=== PATIENT | female | born 1975 | race Caucasian/White ===

== ENCOUNTER 2021-01-11 23:51 | Inpatient (IN) | payer OTHER, SELFPAY ==
--- NOTE | 2021-01-11 | ECG_ITS ---
Test Reason : chest pain Blood Pressure : / mmHG Vent. Rate : 106 BPM Atrial Rate : 106 BPM P-R Int : 152 ms QRS Dur : 076 ms QT Int : 360 ms P-R-T Axes : 047 -04 139 degrees QTc Int : 478 ms Sinus tachycardia Left ventricular hypertrophy with repolarization abnormality Abnormal ECG When compared with ECG of 20-FEB-2020 04:47, No significant change was found Referred By: Jesika Boss Electronically Signed By:GODWIN MARTINEZ MD
--- NOTE | ~2021-01-11 | CT_ITS ---
EXAMINATION: CT CHEST WITHOUT CONTRAST CLINICAL INFORMATION: Evaluate for pneumonia COMPARISON: Chest x-ray from earlier today, CT 06/19/2015 TECHNIQUE: Multidetector volumetric CT imaging of the chest was done. Axial MIP volume rendering provided. Sagittal and coronal reformatted images were obtained. This CT examination was performed using dose optimization techniques as appropriate, variously including the following: *Automated exposure control *Adjustment of mA and/or kV according to patient size (this includes techniques or standardized protocols for targeted exams where dose is matched to indication/reason for exam; i.e. extremities or head) *Use of iterative reconstruction technique DLP: 214 mGy-cm FINDINGS: LUNGS: The lungs are hypoinflated. There are symmetric multifocal regions of groundglass opacity with involvement of both lung apices and lung bases, in association with subpleural reticulation. This finding was present to some degree on prior CT of 06/19/2015, though overall appears worsened since that time. MEDIASTINUM: There are subcentimeter mediastinal lymph nodes within the range of normal variation. Cardiac size is within normal limits; no pericardial effusion. PLEURA: There is no pleural effusion. No pleural mass or thickening. AXILLA: No lymphadenopathy. UPPER ABDOMEN: Unremarkable. OSSEOUS STRUCTURES: Unremarkable. CT/CT chest wo con IMPRESSION: Low lung volumes. Symmetric abnormalities including multifocal groundglass opacities and subpleural reticulation. Similar findings were present on prior CT of 06/19/2015, though the overall appearance has worsened since that time, and this may represent nonspecific interstitial pneumonia. No definite superimposed acute consolidation.
--- NOTE | ~2021-01-11 | XR_ITS ---
EXAMINATION: XR CHEST CLINICAL INFORMATION: Chest pain COMPARISON: 02/17/2020 TECHNIQUE: Frontal view of the chest was obtained. FINDINGS: Lungs remain hypoinflated. Mild bibasilar opacities suggest atelectasis in this setting. No appreciable pneumothorax or significant pleural effusion. The cardiomediastinal contour is unremarkable. No acute osseous findings are seen. XR/XR chest 1V IMPRESSION: Low lung volumes with mild bibasilar opacities suggesting atelectasis in this setting.
[2021-01-12] VITALS (15 sets, daily range): BP systolic 112–156; BP diastolic 64–94; PULSE 90–134; RESP 12–29; TEMP 36.2–37.1; O2SAT 92–100; BMI 23.6
--- NOTE | 2021-01-12 01:09 | ED.CHESTPAIN ---
HPI - Chest Pain General Chief Complaint: Chest Pain Stated Complaint: Chest Pain Time Seen by Provider: 01/12/21 00:03 Source: patient and family (Spouse) Mode of arrival: ambulatory Limitations: no limitations History of Present Illness HPI narrative: 45-year-old female came in for evaluation of chest pain. This is a 45-year-old female history of end-stage interstitial lung fibrosis, patient is on palliative therapy, patient uses hydromorphone for pain control at home and Zofran. Patient is expressing interest to go on hospice service. Patient has been having chest pain all day today, which is constant, patient took many pills of hydromorphone at home which caused stomach upset and nausea with vomiting, patient could not tolerate p.o. intake or her regular palliative treatment. Patient is complaining of diffuse chest pain. Patient use 6 L of supplemental oxygen at home 19/03. Patient also had multiple mini seizures witnessed by her , but no trauma, no postictal peroid, no head injury. Related Data Allergies Allergy/AdvReac Type Severity Reaction Status Date / Time Penicillins [PCN] Allergy Severe HIVES, Verified 01/12/21 00:15 ANGIOEDEMA fentanyl [FENTANYL] Allergy Intermediate UNKNOWN Verified 01/12/21 00:15 garlic [GARLIC] Allergy Unknown ANAPHYLAXIS Verified 01/12/21 00:15 mustard [MUSTARDS] Allergy Unknown ANAPHYLAXIS Verified 01/12/21 00:15 naproxen [NAPROXEN] Allergy Unknown UNKNOWN Verified 01/12/21 00:15 paroxetine [Paxil] Allergy Unknown Unknown Verified 01/12/21 00:15 penicillin V Allergy Unknown Unknown Verified 01/12/21 00:15 aspirin [ASA] AdvReac Intermediate HIVES, LIP Verified 01/12/21 00:15 SWELLING SUN Allergy Severe BLISTERS, Uncoded 01/12/21 00:15 ABD PAIN, DUE TO PORPHYRIA Review of Systems Review of Systems: All other systems are reviewed and are negative Constitutional: Reports as per HPI and Reports no additional constitutional complaints Eyes: Reports as per HPI and Reports no additional eye complaints Reports system reviewed and no additional complaints, except as documented Cardiovascular: Reports as per HPI and Reports no additional cardiovascular complaints Respiratory: Reports as per HPI and Reports no additional respiratory complaints Gastrointestinal: Reports as per HPI and Reports no additional gastrointestinal complaints Genitourinary: Reports no additional female genitourinary complaints Musculoskeletal: Reports no additional musculoskeletal complaints Skin/Breast: Reports system reviewed and no additional complaints, except as docu Psychiatric: Reports no additional psychiatric complaints Endocrine: Reports no additional endocrine complaints Hematologic/Lymphatic: Reports no additional hematologic/lymphatic complaints Allergic/Immunologic: Reports no additional allergic/immunologic complaints Reports system reviewed and no additional complaints, except as documented and Reports Abnormal speech present [facility] Social History Social History Advance Directives: No Advance Directives Information Provided: No Physical Exam Vital Signs: Vital Signs: Last Vital Signs Temp 98.7 F 01/12/21 00:15 Pulse 100 01/12/21 00:15 Resp 22 H 01/12/21 00:15 BP 141/88 H 01/12/21 00:15 Pulse Ox 100 01/12/21 00:15 Oxygen Flow Rate 6 01/12/21 00:15 Body Mass Index 23.6 Vital signs have been reviewed as appeared to be correct. Blood pressure normal. Heart rate normal. Respiration rate normal. Temperature normal. Oxygen saturation normal. Appearance: Alert. Oriented X3. Mild acute distress. Anxious Head: Normal external exam. Normocephalic. Atraumatic. No Aguilar signs noted. No raccoon eyes noted Eyes: PERRLA. EOMI. Conjunctiva and sclera normal. Eyelids normal. ENT: TM's Normal. Pharynx normal. Uvula midline. Moist mucous membranes. No trismus noted. No drooling noted. No muffled voice noted. Neck: Normal inspection. Neck supple. FROM. No adenopathy. Thyroid Normal. No meningeal signs. No neck mass noted. CVS: Normal heart rate and rhythm. Heart sound normal. No murmurs noted. Pulses normal throughout. Respiratory: No respiratory distress. Painless inspiration. Breath sounds normal. No wheezes/rales/rhonchi noted. Chest nontender. No accessory muscle usage noted or decreased air movement noted. Abdomen: Soft and nontender. Bowel sounds normal in all 4 quadrants. No distention noted. No organomegaly noted. No visible injury noted. Back: No CVA tenderness. Full range of motion noted. Skin: Skin warm and dry. Normal skin color. Normal skin turgor. No rashes/lesions/lacerations noted. Extremities: No lower extremity edema. Extremities exhibit normal range of motion. Extremities nontender. Neuro: Oriented X 3. No motor deficit. No sensory deficit. Reflexes normal. Course Course Course Narrative: Assessment and plan. 45-year-old female with chronic pain secondary to end-stage interstitial lung disease, patient is using hydro morphine p.o. at home could not take it because the nausea and vomiting came in with exacerbation of her chronic pain. Signed out to Dr. Boss for check labs, control patient's symptoms, dispo accordingly. MDM - Chest Pain ECG Data ECG #1: Interpretation: Sinus tachycardia at 01:00 6 beats per minutes, LVH, no ST-T changes, no change from previous EKG.
[2021-01-12 01:19] LABS: MANUAL DIFF FLAG NO
[2021-01-12 01:20] LABS: Basophils Percent Auto 0.2 % (0-2); Eosinophils Percent Auto 0.3 % (0-4); Hematocrit 38.4 % (37-47); Hemoglobin 11.6 g/dl (12.0-16.0); Imm Gran Abs Auto 0.19 X10*3/uL (0.00-0.03); Imm Gran Pct Auto 1.4 % (0.0-0.4); Lymphocytes Absolute Auto 2.3 X10*3/uL (1.2-4.9); Lymphocytes Percent Auto 16.9 % (20-40); Mean Corpuscular HGB Conc 30.2 g/dl (31.0-35.0); Mean Corpuscular Volume 82.8 fL (80-98); Mean Platelet Volume 8.2 fL (9.4-12.3); Monocytes Absolute Auto 0.9 X10*3/uL (0.1-1.2); Monocytes Percent Auto 6.3 % (2-11); Neutrophils Absolute Auto 10.3 X10*3/uL (2.0-8.3); Neutrophils Percent Auto 74.9 % (45-73); Platelet Count 464 X10*3/uL (160-400); Red Blood Count 4.64 X10*6/uL (4.20-5.50); Red Cell Distribution Width 15.6 % (11.0-16.0); White Blood Count 13.8 X10*3/uL (4.8-10.8)
[2021-01-12] MEDS: HYDROmorphone HCl 2 MG/ML VIAL IVPUSH ×7 (01:25→14:37)
[2021-01-12] MEDS: ondansetron HCL 4 MG/2 ML VIAL IVPUSH ×2 (01:26→16:38)
[2021-01-12 01:36] LABS: D Dimer 220 NG/ML
[2021-01-12 01:46] LABS: B Type Natriuretic Peptide 25 pg/mL (<100); Troponin-I High Sensitivity < 3.5 ng/L (<3.5-17.0)
[2021-01-12] MEDS: HYDROmorphone HCl 1 MG/ML SYRINGE IVPUSH (02:52)
[2021-01-12] MEDS: LORazepam 2 MG/ML VIAL 1 MG IVPUSH ×6 (03:22→23:19)
--- NOTE | 2021-01-12 03:30 | PC.NURSE ---
Patient's came to report that patient had a seizure. When this com writer came in patient was slouch on the bed. This com writer repositioned the patient and she woke up. Patient was oriented and responding appropriately. Patient did not present as post ictal. ED provider aware and patient was assessed. CAT scan w/o contrast ordered.
--- NOTE | 2021-01-12 03:55 | PC.NURSE ---
Patient complaining of pain and asking for more pain medication and stating that the medication we have given doesn't work for long. Dr. Boss made aware and myself and Dr. Boss spoke with patient about our concern that if we continue to give her narcotics to treat her pain that their is a risk we could compromise her ability to breathe and she could stop breathing. Dr. Boss question patient about whether she would want to be placed on a ventilator if she stopped breathing. The patient clearly stated that she would not want to be intubated. Patient has end stage lung disease and stated she wanted to have her pain controlled. She was aware of possible complcation of breathing complications and again stated that she would not want to be intubated.
[2021-01-12] MEDS: methylPREDNISolone Sod Succ 125 MG/2 ML VIAL 60 MG IVPUSH (05:05)
--- NOTE | 2021-01-12 05:07 | PC.NURSE ---
Patient medicated per emar as noted.
[2021-01-12 05:21] LABS: Anion Gap 17 (12-20); Blood Urea Nitrogen 11 mg/dL (9-16); Calcium 9.5 mg/dL (8.4-10.2); Carbon Dioxide 22 mmol/L (22-29); Chloride 105 mmol/L (96-108); Creatinine Clr Calc Pharmacy 87.6; Estimated Glomerular Filt Rate > 60; Glucose Random 112 mg/dL (60-115); Lipase 54 U/L (8-78); Potassium 4.4 mmol/L (3.3-5.1); Sodium 140 mmol/L (135-145)
[2021-01-12 07:58] LABS: COVID-19 Test Negative (Negative)
--- NOTE | 2021-01-12 08:20 | PC.NURSE ---
PT CURRENTLY BEING SEEN BY HOSPITALIST
--- NOTE | 2021-01-12 09:45 | P.EN_ITS ---
Event Note Date of Service: 01/12/21 Event Note: Pt seen and examined this AM around 8-830. Admission requested for intractable pain. Patient currently under Palliative care and feels that she is ready to transition to hospice. She tells me her Painter [employer] [place] gave her a life expectancy of 7-12 months (this conversation was held at some point towards the end of 2019). She tells me that she is ready to make this transition. She reports that her oral pain medications are no longer working. She has been given multiple doses of IV dilaudid with some improvement in pain, but not enough for her to be discharged from the ED. I believe she would be a hospice candidate based off her reports with her medical office professional instructor. Furthermore, she would be a candidate for GIP hospice should she qualify for hospice in the first place. ED CM has been made aware. Will admit the patient under appropriate status once evaluated by hospice.
--- NOTE | 2021-01-12 09:47 | MHC.CM.ED ---
Per Dr Richards, patient is currently active with Palliative care and interested in hospice. Patient is being admitted due to poor pain control. Patient is active with [facility]iative care for consult only. Referral made to [facility]. karie Beal will be here to meet with patient in about an hour. Dr Richards aware. Continue to monitor for d/c needs.
--- NOTE | 2021-01-12 10:50 | PC.NURSE ---
SPOKE WITH PATIENTS UPDATED ON PLAN, CM WORKING ON GETTING HOSPICE INVOLVED. GAVE ME NUMBERS FOR [facility] [phone], PALEONTOLOGIST DR MURO [phone] JAMARCUS STILL [phone]
--- NOTE | 2021-01-12 11:20 | PC.NURSE ---
PT EVALUATED BY MARKEL FROM HOSPICE, WILL WORK ON A PLAN FOR BETTER PAIN CONTROL
[2021-01-12] MEDS: FLUoxetine HCl 20 MG CAPSULE 60 MG PO (12:11)
--- NOTE | 2021-01-12 12:27 | MHC.CM.ED ---
Lian, liaison for [facility] in to see patient. Patient is hospice GIP appropriate. Mary Beth from Hospice here to sign patient onto GIP. Dr Richards aware. Continue to monitor for d/c needs.
--- NOTE | 2021-01-12 13:38 | PM.IMHP ---
History of Present Illness Date of Service: 01/12/21 Chief Complaint: pain This is an unfortunate 45-year-old female with a past medical history of chronic respiratory failure with hypoxia on 6 L by nasal cannula, interstitial lung disease/pulmonary fibrosis, PTSD/anxiety who presents to the hospital with complaints of severe chest pain. Patient reports that she is in daily pain and that her chronic pain medications are no longer working and so she sought treatment in the emergency room. While in the ED, she underwent basic workup which included a CT scan of the chest which showed progression of her known pulmonary fibrosis. There was no evidence of superimposed infiltrate. She was given multiple doses of IV Dilaudid without much resolution of her pain and so admission was requested for intractable pain. When I saw the patient this morning she told me that she was currently being treated under palliative care and that she had had prior discussions in the outpatient setting for hospice transition and now she feels that she is ready for this. When I inquired about her interstitial lung disease and her prognosis, she told me that her pole tester had told her that she had 7-12 months of life expectancy left. She reported that this conversation happened with her pole tester towards the end of 2019. I offered her evaluation with hospice services which she gladly agreed to. Hospice services evaluated the patient and deemed her a candidate for hospice. Due to her uncontrolled pain despite multiple doses of IV narcotics, she was deemed a candidate for GIP hospice and will be admitted for pain management. She has received multiple doses of 2mg of IV Dilaudid initially q.4 hours and subsequently q.2 hours without any significant relief. Review of Systems Review of Systems: General - +parrish and anxiety Cardiovascular - diffuse pain Respiratory - no shortness of breath or cough Abdominal- +nausea Psych - Anxiety PMFSH Social History Alcohol intake: unknown Smoking Status: Unknown if ever smoked Advance Directives Date on File: 01/12/21 Meds Allergies Allergy/AdvReac Type Severity Reaction Status Date / Time Penicillins [PCN] Allergy Severe HIVES, Verified 01/12/21 00:15 ANGIOEDEMA fentanyl [FENTANYL] Allergy Intermediate UNKNOWN Verified 01/12/21 00:15 garlic [GARLIC] Allergy Unknown ANAPHYLAXIS Verified 01/12/21 00:15 mustard [MUSTARDS] Allergy Unknown ANAPHYLAXIS Verified 01/12/21 00:15 naproxen [NAPROXEN] Allergy Unknown UNKNOWN Verified 01/12/21 00:15 paroxetine [Paxil] Allergy Unknown Unknown Verified 01/12/21 00:15 penicillin V Allergy Unknown Unknown Verified 01/12/21 00:15 aspirin [ASA] AdvReac Intermediate HIVES, LIP Verified 01/12/21 00:15 SWELLING SUN Allergy Severe BLISTERS, Uncoded 01/12/21 00:15 ABD PAIN, DUE TO PORPHYRIA Active Medications: Current Medications Generic Name Dose Route Start Last Admin Trade Name Freq PRN Reason Stop Dose Admin Cyclobenzaprine HCl 10 mg 01/12/21 15:00 Cyclobenzaprine Hcl 10 Mg Tablet PO TID [facility] Fluoxetine HCl 60 mg 01/12/21 11:00 01/12/21 12:11 Fluoxetine Hcl 20 Mg Capsule PO 60 mg DAILY [facility] Administration Hydromorphone HCl 2 mg 01/12/21 10:49 01/12/21 12:11 Hydromorphone Hcl 2 Mg/Ml Vial IVPUSH 2 mg Q2H PRN Administration Pain, Severe (Pain Scale 7-10) Hydroxyzine HCl 25 mg 01/12/21 10:52 Hydroxyzine Hcl 25 Mg Tablet PO BEDTIME PRN anxiety Olanzapine 2.5 mg 01/13/21 09:00 Olanzapine 2.5 Mg Tablet PO DAILY [facility] Omeprazole 20 mg 01/13/21 06:30 Omeprazole 20 Mg Capsule. PO DAILY@0630 [facility] Pharmacy Consult 1 each 01/12/21 04:49 Consult Rx Perform Med Rec MISCELLANE ONCE PRN Consult order Prednisone 20 mg 01/13/21 09:00 Prednisone 20 Mg Tablet PO DAILY [facility] Trazodone HCl 50 mg 01/12/21 21:00 Trazodone Hcl 50 Mg Tablet PO BEDTIME [facility] Trimethoprim/Sulfamethoxazole 1 tab 01/12/21 12:00 Sulfamethox/Trimeth 800/160 1 Tab Tablet PO MoWeFr@0900 [facility] Home Medications Medication Instructions Recorded Confirmed Last Taken Type clonazepam 1 tab PO TID 01/12/21 01/12/21 Unknown History cyclobenzaprine 1 tab PO TID 01/12/21 01/12/21 Unknown History fluoxetine 3 cap PO QAM 01/12/21 01/12/21 Unknown History hydroxyzine HCl 1 tab PO BEDTIME PRN 01/12/21 01/12/21 Unknown History metoprolol succinate 1 tab PO DAILY 01/12/21 01/12/21 Unknown History olanzapine 2.5 mg PO DAILY 01/12/21 01/12/21 Unknown History pantoprazole 40 mg PO DAILY 01/12/21 01/12/21 Unknown History prednisone 1 tab PO DAILY 01/12/21 01/12/21 Unknown History sulfamethoxazole-trimethoprim 1 tab PO MOWEFR 01/12/21 01/12/21 Unknown History trazodone 1 tab PO BEDTIME 01/12/21 01/12/21 Unknown History Physical Exam Vital Signs and Narrative: Vital Signs: Last Vital Signs Temp 98.7 F 01/12/21 00:15 Pulse 118 H 01/12/21 10:00 Resp 18 01/12/21 10:00 BP 143/76 H 01/12/21 10:00 Pulse Ox 100 01/12/21 10:00 Oxygen Flow Rate 6 01/12/21 00:15 Body Mass Index 23.6 Const: Other: Constitutional - Awake and Alert, in visible distress Eyes - PERRLA, EOMI Cardiovascular - S1S2, Tachycaridc Respiratory - tachypnea, fine rales throughout Gastrointestinal - NT / ND; +BS; No rebound or guarding - No CVA tenderness Extremities - no calf tenderness bilaterally, no swelling Musculoskeletal - Normal inspection, normal ROM Skin - Warm/Dry Neurological - Alert & oriented x3, No focal deficit Psychological - Appropriate affect Results Labs CBC and Chem 7: 01/12/21 01:15 01/12/21 04:38 Labs: Laboratory Results - last 24 hr 01/12/21 01/12/21 01/12/21 01:15 01:15 01:15 MCV 82.8 MCH 25.0 L MCHC 30.2 L RDW 15.6 Plt Count 464 H MPV 8.2 L Immature Gran % (Auto) 1.4 H Neut % (Auto) 74.9 H Lymph % (Auto) 16.9 L [place] % (Auto) 6.3 Eos % (Auto) 0.3 Baso % (Auto) 0.2 Lymph # (Auto) 2.3 [place] # (Auto) 0.9 Eos # (Auto) 0.0 Baso # (Auto) 0.0 Abs Immat Gran (auto) 0.19 H Absolute Neuts (auto) 10.3 H Absolute Nucleated RBC 0.000 Nucleated RBC % (auto) 0.0 D-Dimer 220 Anion Gap Estim Creat Clear Calc Estimated GFR Random Glucose Calcium Troponin I High Sens < 3.5 B-Natriuretic Peptide 25 Lipase COVID-19 (VAN) COVID-19 Clin Com 01/12/21 01/12/21 04:38 07:38 MCV MCH MCHC RDW Plt Count MPV Immature Gran % (Auto) Neut % (Auto) Lymph % (Auto) [place] % (Auto) Eos % (Auto) Baso % (Auto) Lymph # (Auto) [place] # (Auto) Eos # (Auto) Baso # (Auto) Abs Immat Gran (auto) Absolute Neuts (auto) Absolute Nucleated RBC Nucleated RBC % (auto) D-Dimer Anion Gap 17 Estim Creat Clear Calc 87.6 Estimated GFR > 60 Random Glucose 112 Calcium 9.5 Troponin I High Sens B-Natriuretic Peptide Lipase 54 COVID-19 (VAN) Negative COVID-19 Clin Com See Note Imaging Radiologist's Impressions: Impressions Chest X-Ray 01/12/21 00:59 IMPRESSION: Low lung volumes with mild bibasilar opacities suggesting atelectasis in this setting. Chest CT 01/12/21 03:45 IMPRESSION: Low lung volumes. Symmetric abnormalities including multifocal groundglass opacities and subpleural reticulation. Similar findings were present on prior CT of 06/19/2015, though the overall appearance has worsened since that time, and this may represent nonspecific interstitial pneumonia. No definite superimposed acute consolidation. Assessment and Plan (1) Pulmonary fibrosis: Status: Acute (2) Intractable pain: Status: Acute (3) Chronic respiratory failure with hypoxia: Status: Acute This is unfortunate 45-year-old with a past medical history of interstitial lung disease/pulmonary fibrosis and resultant chronic respiratory failure with hypoxia on 6 L of O2 at home who presents to the hospital complaints of intractable pain. She reports that her oral Dilaudid at home is no longer working and so she sought care in the ED. she reports being currently under palliative care and is ready for transition to hospice. She has been evaluated by hospice services and deemed a candidate for hospice transition and furthermore GIP Hospice level of care. Will continue with IV pain control -- increase dilaudid from 2mg to 4mg q2 hours stop her clonazepam and start ativan zofran for nausea CT scan of the lung which captured the upper portion of the abdomen showing stool throughout her bowels. Will start her on MiraLax, may need further laxatives. Continue her other baseline meds. D/w the hospice case manager.
[2021-01-12] MEDS: Cyclobenzaprine HCl 10 MG TABLET PO ×2 (14:28→20:20)
--- NOTE | 2021-01-12 14:28 | PC.NURSE ---
PT REFUSED BACTRIM AT THIS PT IS FEELING ILL AT THIS TIME
--- NOTE | 2021-01-12 14:53 | PC.NURSE ---
PT HAS BEEN GETTING PAIN MEDICATIONS CLOSE TO EVERY 2 HOURS, ALONG WITH ATIVAN. DILOTED HAS BEEN INCREASED PT RECEIVED INCREASED DOSE AROUND 1400 ALONG WITH ATIVAN, NOTIFIED DR ABARCA SUGGESTED A GTT FOR PAIN MANAGEMENT, WAITING TO HEAR BACK
[2021-01-12] MEDS: Metoprolol Succinate ER 25 MG TAB.ER.24H PO (14:57)
--- NOTE | 2021-01-12 15:51 | PC.NURSE ---
contact made to md us regarding inadequate pain management. per patient, pain is not adquately controlled along with the duration of medication is not effective. pt has orders for q hr 4mg Dilaudid. plan to consult anesthesiology for sewer pipe press operator pump for pain management. Plan is that dr us is to contact Dr chacon who is geographic information systems engineer anesthesiology to discuss comfort measures.
[2021-01-12] MEDS: HYDROmorphone HCl 2 MG/ML VIAL 4 MG IVPUSH ×3 (16:40→23:18)
--- NOTE | 2021-01-12 17:16 | PC.NURSE ---
md us and ansesiology decided that patient is not candidate for park police. evaluation immediately occurred after PRN medication was administered. concerns of pain management and duration of effect was brought to hospitalists attention. at this time an update will be provided to hospice service.
--- NOTE | 2021-01-12 17:25 | HO.ANESPROP2 ---
[facility] Active Problems Active Problems: All Active Problems (Updated 01/12/21 @ 13:54 by Paul Richards MD) Chronic respiratory failure with hypoxia (Acute) Intractable pain (Acute) Pulmonary fibrosis (Acute) Chest pain (Acute) Social History Social History Alcohol intake: unknown Smoking Status: Unknown if ever smoked Use of substances other than those prescribed or required for medical reasons: Unknown Advance Directives: Yes Advance Directives on File: Yes Advance Directives Date on File: 01/12/21 Meds Allergies Allergy/AdvReac Type Severity Reaction Status Date / Time Penicillins [PCN] Allergy Severe HIVES, Verified 01/12/21 00:15 ANGIOEDEMA fentanyl [FENTANYL] Allergy Intermediate UNKNOWN Verified 01/12/21 00:15 garlic [GARLIC] Allergy Unknown ANAPHYLAXIS Verified 01/12/21 00:15 mustard [MUSTARDS] Allergy Unknown ANAPHYLAXIS Verified 01/12/21 00:15 naproxen [NAPROXEN] Allergy Unknown UNKNOWN Verified 01/12/21 00:15 paroxetine [Paxil] Allergy Unknown Unknown Verified 01/12/21 00:15 penicillin V Allergy Unknown Unknown Verified 01/12/21 00:15 aspirin [ASA] AdvReac Intermediate HIVES, LIP Verified 01/12/21 00:15 SWELLING SUN Allergy Severe BLISTERS, Uncoded 01/12/21 00:15 ABD PAIN, DUE TO PORPHYRIA Active Medications: Current Medications Generic Name Dose Route Start Last Admin Trade Name Freq PRN Reason Stop Dose Admin Cyclobenzaprine HCl 10 mg 01/12/21 15:00 01/12/21 14:28 Cyclobenzaprine Hcl 10 Mg Tablet PO 10 mg TID GOLDY Administration Fluoxetine HCl 60 mg 01/12/21 11:00 01/12/21 12:11 Fluoxetine Hcl 20 Mg Capsule PO 60 mg DAILY GOLDY Administration Hydromorphone HCl 4 mg 01/12/21 13:40 01/12/21 16:40 Hydromorphone Hcl 2 Mg/Ml Vial IVPUSH 4 mg Q2H PRN Administration Pain, Severe (Pain Scale 7-10) Hydroxyzine HCl 25 mg 01/12/21 10:52 Hydroxyzine Hcl 25 Mg Tablet PO BEDTIME PRN anxiety Lorazepam 1 mg 01/12/21 13:40 01/12/21 16:43 Lorazepam 2 Mg/Ml Vial IVPUSH 1 mg Q2H PRN Administration Anxiety Metoprolol Succinate 25 mg 01/12/21 13:45 01/12/21 14:57 Metoprolol Succinate Er 25 Mg Tab.Er.24h PO 25 mg DAILY [facility] Administration Protocol Olanzapine 2.5 mg 01/13/21 09:00 Olanzapine 2.5 Mg Tablet PO DAILY [facility] Omeprazole 20 mg 01/13/21 06:30 Omeprazole 20 Mg Capsule.Dr PO DAILY@0630 [facility] Ondansetron HCl 4 mg 01/12/21 13:40 01/12/21 16:38 Ondansetron Hcl 4 Mg/2 Ml Vial IVPUSH 4 mg Q8H PRN Administration Nausea and Vomiting Polyethylene Glycol 17 gm 01/12/21 13:45 01/12/21 14:57 Polyethylene Glycol 3350 17 Gm Powd.Pack PO Not Given DAILY [facility] Prednisone 20 mg 01/13/21 09:00 Prednisone 20 Mg Tablet PO DAILY [facility] Trazodone HCl 50 mg 01/12/21 21:00 Trazodone Hcl 50 Mg Tablet PO BEDTIME [facility] Trimethoprim/Sulfamethoxazole 1 tab 01/12/21 12:00 01/12/21 14:28 Sulfamethox/Trimeth 800/160 1 Tab Tablet PO Not Given MoWeFr@0900 [facility] Home Medications Medication Instructions Recorded Confirmed Last Taken Type clonazepam 1 tab PO TID 01/12/21 01/12/21 Unknown History cyclobenzaprine 1 tab PO TID 01/12/21 01/12/21 Unknown History fluoxetine 3 cap PO QAM 01/12/21 01/12/21 Unknown History hydroxyzine HCl 1 tab PO BEDTIME PRN 01/12/21 01/12/21 Unknown History metoprolol succinate 1 tab PO DAILY 01/12/21 01/12/21 Unknown History olanzapine 2.5 mg PO DAILY 01/12/21 01/12/21 Unknown History pantoprazole 40 mg PO DAILY 01/12/21 01/12/21 Unknown History prednisone 1 tab PO DAILY 01/12/21 01/12/21 Unknown History sulfamethoxazole-trimethoprim 1 tab PO MOWEFR 01/12/21 01/12/21 Unknown History trazodone 1 tab PO BEDTIME 01/12/21 01/12/21 Unknown History Exam Exam Date and Time: January 12, 2021 1725 Height,Weight and Vital Signs: Height 5 ft 4 in Weight 62.27 kg Last Vital Signs Temp 98.7 F 01/12/21 00:15 Pulse 120 H 01/12/21 16:00 Resp 24 H 01/12/21 16:00 BP 156/94 H 01/12/21 16:00 Pulse Ox 100 01/12/21 16:00 Oxygen Flow Rate 6 01/12/21 00:15 Pertinent Lab Results Pertinent Lab Results: Laboratory Tests 01/12/21 01/12/21 01/12/21 01:15 01:15 01:15 WBC 13.8 H RBC 4.64 Hgb 11.6 L Hct 38.4 MCV 82.8 MCH 25.0 L MCHC 30.2 L RDW 15.6 Plt Count 464 H MPV 8.2 L Immature Gran % (Auto) 1.4 H Neut % (Auto) 74.9 H Lymph % (Auto) 16.9 L Morgan % (Auto) 6.3 Eos % (Auto) 0.3 Baso % (Auto) 0.2 Lymph # (Auto) 2.3 Morgan # (Auto) 0.9 Eos # (Auto) 0.0 Baso # (Auto) 0.0 Abs Immat Gran (auto) 0.19 H Absolute Neuts (auto) 10.3 H Absolute Nucleated RBC 0.000 Nucleated RBC % (auto) 0.0 D-Dimer 220 Sodium Potassium Chloride Carbon Dioxide Anion Gap BUN Creatinine Estim Creat Clear Calc Estimated GFR Random Glucose Calcium Troponin I High Sens < 3.5 B-Natriuretic Peptide 25 Lipase COVID-19 (VAN) COVID-[employer] [facility] 01/12/21 01/12/21 04:38 07:38 WBC RBC Hgb Hct MCV MCH MCHC RDW Plt Count MPV Immature Gran % (Auto) Neut % (Auto) Lymph % (Auto) Morgan % (Auto) Eos % (Auto) Baso % (Auto) Lymph # (Auto) Morgan # (Auto) Eos # (Auto) Baso # (Auto) Abs Immat Gran (auto) Absolute Neuts (auto) Absolute Nucleated RBC Nucleated RBC % (auto) D-Dimer Sodium 140 Potassium 4.4 Chloride 105 Carbon Dioxide 22 Anion Gap 17 BUN 11 Creatinine 0.70 Estim Creat Clear Calc 87.6 Estimated GFR > 60 Random Glucose 112 Calcium 9.5 Troponin I High Sens B-Natriuretic Peptide Lipase 54 COVID-19 (VAN) Negative COVID-19 Clin Com See Note
--- NOTE | 2021-01-12 17:30 | P.EN_ITS ---
Event Note Date of Service: 01/12/21 Event Note: Multiple phone calls received from ED RN over concern that the pa annabella is not adequately pain controlled and advocating for the patient for a possible [employer] pump evaluation. I have seen the patient twice today -- both times the patient is resting comfortably and when stimulated, she awakens with increasing pain. Anesthesia was consulted for evaluation of a [employer] LE[employer] pump. Dr. Charlotte Li has evaluated the patient. I have spoken with Dr. Esteban in detail about the patients pain. We both agree that the patient does not need a COGNOS LEAD pump. I think at this time, we should continue the current dilaudid and ativan and let the patient rest as she is doing.
--- NOTE | 2021-01-12 17:30 | PC.NURSE ---
Contact made to Pt's hospice provider at [phone], Lian recommends due increasing Dilaudid administration dose to 5 or 6 mg IVP q2hr to see if pain becomes better controlled. If that doesn't work, then contact hospice back to notify and discuss options with hospice pharmacy. md us advised of hospice recommendations. Per hospitalist patient does not need increase in pain medication at this time, due to patient resting for 15 minutes and subsequent reveal by provider x2, anesthesiology consult, and hospice eval earlier in am. Continuing to monitor this situation at this time.
[2021-01-12] MEDS: traZODone HCL 50 MG TABLET PO (20:43)
[2021-01-13] VITALS (7 sets, daily range): BP systolic 102–156; BP diastolic 57–82; PULSE 98–122; RESP 18–24; TEMP 36.1–36.8; O2SAT 97–100
[2021-01-13] MEDS: HYDROmorphone HCl 2 MG/ML VIAL 4 MG IVPUSH ×3 (03:32→10:27)
[2021-01-13] MEDS: Omeprazole 20 MG CAPSULE.DR PO (05:29)
[2021-01-13] MEDS: Metoprolol Succinate ER 25 MG TAB.ER.24H PO (09:25)
[2021-01-13] MEDS: predniSONE 20 MG TABLET PO (09:26)
[2021-01-13] MEDS: LORazepam 2 MG/ML VIAL 1 MG IVPUSH (10:27)
--- NOTE | 2021-01-13 11:21 | MHC.CM.PN ---
CM MET WITH PT AND WHO WAS AT BEDSIDE TO DISCUSS DC PLANS. PT REPORTS SHE DOES NOT WANT TO GO TO [facility]. PT IS ACTIVE WITH [facility] AND WOULD LIKE TO RESUME SERVICES WITH THEM. CM WILL DISCUSS FURTHER WITH MD TO DETERMINE APPROPRIATE/SAFE DISPOSITION
--- NOTE | 2021-01-13 11:34 | MHC.CM.PN ---
CM spoke with [facility]) RN who reports the pt appears to be improved today. She reports the pt was active with [facility] prior to admission and also had a psychiatrist with them. per [facility] RN, she will contact [facility] today to discuss transitioning pt back to their services possible tomorrow.
[2021-01-13] MEDS: ondansetron HCL 4 MG/2 ML VIAL IVPUSH (11:55)
[2021-01-13] MEDS: clonazePAM 1 MG TABLET PO (14:30)
[2021-01-13] MEDS: Cyclobenzaprine HCl 10 MG TABLET PO ×2 (14:30→21:34)
--- NOTE | 2021-01-13 14:33 | HO.PM.IMPN ---
Subjective Subjective Date of Service: 01/13/21 Interval History: seen in follow-up this morning Reports ongoing pain No overnight events Review of Systems Review of Systems: Yes all other systems are reviewed and are negative Constitutional Constitutional: Denies chills and Denies fever(s) Cardiovascular Cardiovascular: Denies chest pain Respiratory Respiratory: Denies cough Gastrointestinal Gastrointestinal: Denies abdominal pain Physical Exam Vital Signs: Vital Signs: Last Vital Signs Temp 97.9 F 01/13/21 11:06 Pulse 110 H 01/13/21 11:06 Resp 18 01/13/21 11:06 BP 123/66 01/13/21 11:06 Pulse Ox 99 01/13/21 11:06 Oxygen Flow Rate 6 01/12/21 00:15 Body Mass Index 23.6 Const: General: alert and awake Nutritional Appearance: well nourished HENMT: Head: Yes normocephalic and Yes atraumatic Eyes: Sclerae: sclerae normal Chest: Chest palpation & inspection: normal inspection of the chest Resp: Effort & Inspection: normal respiratory effort and no respiratory distress Cardio: Rate: tachycardic Rhythm: regular rhythm GI: Palpation (GI): Soft to palpation and nontender Neuro: Cranial nerves: Yes CN's II-XII intact bilaterally and Yes Bilaterally intact EOM present Extrem: General: Yes normal to inspection Objective Data Current Medications Generic Name Dose Route Start Last Admin Trade Name Freq PRN Reason Stop Dose Admin Bisacodyl 10 mg 01/13/21 10:38 Bisacodyl 10 Mg Supp.Rect ND BEDTIME PRN Constipation Clonazepam 1 mg 01/13/21 15:00 Clonazepam 1 Mg Tablet PO TID GOLDY Cyclobenzaprine HCl 10 mg 01/12/21 15:00 01/13/21 09:17 Cyclobenzaprine Hcl 10 Mg Tablet PO Not Given TID GOLDY Docusate Sodium 100 mg 01/13/21 21:00 Docusate Sodium 100 Mg Capsule PO BID GOLDY Fluoxetine HCl 60 mg 01/12/21 11:00 01/13/21 09:18 Fluoxetine Hcl 20 Mg Capsule PO Not Given DAILY G[facility] Hydromorphone HCl 2 mg 01/13/21 11:07 Hydromorphone Hcl 2 Mg/Ml Vial IVPUSH Q4H PRN Pain, Severe (Pain Scale 7-10) Hydromorphone HCl 2 mg 01/13/21 11:22 Hydromorphone Hcl 2 Mg Tablet PO QID PRN Pain, Moderate (Pain Scale 4-6 Hydroxyzine HCl 25 mg 01/12/21 10:52 Hydroxyzine Hcl 25 Mg Tablet PO BEDTIME PRN anxiety Metoprolol Succinate 25 mg 01/12/21 13:45 01/13/21 09:25 Metoprolol Succinate Er 25 Mg Tab.Er.24h PO 25 mg DAILY [facility] Administration Protocol Olanzapine 2.5 mg 01/13/21 09:00 01/13/21 09:18 Olanzapine 2.5 Mg Tablet PO Not Given DAILY [facility] Omeprazole 20 mg 01/13/21 06:30 01/13/21 05:29 Omeprazole 20 Mg Capsule.Dr PO 20 mg DAILY@0630 [facility] Administration Ondansetron HCl 4 mg 01/12/21 13:40 01/13/21 11:55 Ondansetron Hcl 4 Mg/2 Ml Vial IVPUSH 4 mg Q8H PRN Administration Nausea and Vomiting Polyethylene Glycol 17 gm 01/12/21 13:45 01/13/21 09:26 Polyethylene Glycol 3350 17 Gm Powd.Pack PO Not Given DAILY [facility] Prednisone 20 mg 01/13/21 09:00 01/13/21 09:26 Prednisone 20 Mg Tablet PO 20 mg DAILY [facility] Administration Trazodone HCl 50 mg 01/12/21 21:00 01/12/21 20:43 Trazodone Hcl 50 Mg Tablet PO 50 mg BEDTIME GOLDY Administration Trimethoprim/Sulfamethoxazole 1 tab 01/12/21 12:00 01/12/21 14:28 Sulfamethox/Trimeth 800/160 1 Tab Tablet PO Not Given MoWeFr@0900 [facility] Labs CBC & Chem 7: 01/12/21 01:15 01/12/21 04:38 Assessment and Plan (1) Chronic respiratory failure with hypoxia: Status: Acute (2) Intractable pain: Status: Acute (3) Pulmonary fibrosis: Status: Acute Assessment and Plan: This is unfortunate 45-year-old with a past medical history of interstitial lung disease/pulmonary fibrosis and resultant chronic respiratory failure with hypoxia on 6 L of O2 at home who presents to the hospital complaints of intractable pain. She reports that her oral Dilaudid at home is no longer working and so she sought care in the ED. she reports being currently under palliative care through [facility]. She has been evaluated by hospice services and admitted under [facility] Chronic respiratory failure/pulmonary fibrosis pain under better control Active with [facility] palliative care, plan to resume care with them at discharge Wean IV Dilaudid and resume p.o. Dilaudid CT scan of the lung which captured the upper portion of the abdomen showing stool throughout her bowels. -bowel regimen Will continue her other baseline meds. DVT ppx - mechanical devices Attending-Dr. Richards
[2021-01-13] MEDS: HYDROmorphone HCl 2 MG/ML VIAL IVPUSH ×2 (14:35→18:32)
[2021-01-13] MEDS: HYDROmorphone HCl 2 MG TABLET PO ×2 (16:36→21:35)
--- NOTE | 2021-01-13 19:37 | PC.NURSE ---
Patient very confused this morning, most of AM meds held per hospitalist. Hospice visited with patient. Pain medications changed, bowel medications added. Patient very tearful and reports no less than 7/10 midsternal, lower rib pain.
[2021-01-13] MEDS: Docusate Sodium 100 MG CAPSULE PO (21:34)
[2021-01-13] MEDS: traZODone HCL 50 MG TABLET PO (21:35)
[2021-01-14 00:36] VITALS: BP 116/64; PULSE 95; RESP 19
[2021-01-14 00:37] VITALS: RESP 19
[2021-01-14] MEDS: HYDROmorphone HCl 2 MG/ML VIAL IVPUSH ×3 (00:37→09:24)
[2021-01-14 04:00] VITALS: BP 127/71; PULSE 101; RESP 20; TEMP 36.4; O2SAT 100
[2021-01-14 04:38] VITALS: RESP 20
[2021-01-14] MEDS: ondansetron HCL 4 MG/2 ML VIAL IVPUSH (04:53)
[2021-01-14] MEDS: Omeprazole 20 MG CAPSULE.DR PO (06:08)
[2021-01-14 07:16] VITALS: BP 137/70; PULSE 93; RESP 20; TEMP 37.1; O2SAT 100
--- NOTE | 2021-01-14 07:50 | PC.NURSE ---
[id number] shift; Around 2029, patient walked out of the room, down the johnson and down the stairway. Security was notified. This RN with assistance of another RN brought the patient back to the room, security at bedside. Patient is alert to self and place, confused to time and situation, vital signs stable. This RN placed bed alarm on, initiated telesitter for patient safety. Patient was educated to use call perales for assistance. Nursing supervisor kosher dietary service was made aware, hospitalist made aware.
[2021-01-14] MEDS: Cyclobenzaprine HCl 10 MG TABLET PO (08:13)
[2021-01-14] MEDS: FLUoxetine HCl 20 MG CAPSULE 60 MG PO (08:13)
[2021-01-14] MEDS: Metoprolol Succinate ER 25 MG TAB.ER.24H PO (08:13)
[2021-01-14] MEDS: OLANZapine 2.5 MG TABLET PO (08:13)
[2021-01-14] MEDS: clonazePAM 1 MG TABLET PO (08:13)
[2021-01-14] MEDS: predniSONE 20 MG TABLET PO (08:13)
[2021-01-14] MEDS: HYDROmorphone HCl 2 MG TABLET PO (10:56)
[2021-01-14 11:13] VITALS: BP 118/56; PULSE 103; RESP 20; TEMP 37; O2SAT 100
--- NOTE | 2021-01-14 11:21 | P.DS_ITS ---
DS: Providers Provider Date of Service: 01/14/21 <CARLA Mancera - Last Filed: 01/14/21 11:32> 01/14/21 <Paul Richards MD - Last Filed: 01/17/21 08:17> Date of admission: 01/12/21 14:25 <CARLA Mancera - Last Filed: 01/14/21 11:32> Primary care physician: Brittany Augustine NP <CARLA Mancera - Last Filed: 01/14/21 11:32> DS: Diagnosis Discharge Diagnosis (1) Chronic respiratory failure with hypoxia: Status: Acute <CARLA Mancera - Last Filed: 01/14/21 11:32> (2) Intractable pain: Status: Acute <CARLA Mancera - Last Filed: 01/14/21 11:32> (3) Pulmonary fibrosis: Status: Acute <CARLA Mancera - Last Filed: 01/14/21 11:32> DS: Medications Discharge Medications Home Medications: Home Medications Medication Instructions Recorded Confirmed clonazepam 1 tab PO TID 01/12/21 01/12/21 cyclobenzaprine 1 tab PO TID 01/12/21 01/12/21 fluoxetine 3 cap PO QAM 01/12/21 01/12/21 hydroxyzine HCl 1 tab PO BEDTIME PRN 01/12/21 01/12/21 metoprolol succinate 1 tab PO DAILY 01/12/21 01/12/21 olanzapine 2.5 mg PO DAILY 01/12/21 01/12/21 pantoprazole 40 mg PO DAILY 01/12/21 01/12/21 prednisone 1 tab PO DAILY 01/12/21 01/12/21 sulfamethoxazole-trimethoprim 1 tab PO MOWEFR 01/12/21 01/12/21 trazodone 1 tab PO BEDTIME 01/12/21 01/12/21 Previous Rx's Medication Instructions Recorded alum-mag hydroxide-simeth [Maalox 10 ml PO Q6H PRN #300 ml 01/14/21 Advanced] ondansetron HCl [Zofran] 4 mg PO Q8H PRN #14 tab 01/14/21 <CARLA Mancera - Last Filed: 01/14/21 11:32> DS: Summary Hospital Course Hospital Course: From H&P 01/12 This is an unfortunate 45-year-old female with a past medical history of chronic respiratory failure with hypoxia on 6 L by nasal cannula, interstitial lung disease/pulmonary fibrosis, PTSD/anxiety who presents to the hospital with complaints of severe chest pain. Patient reports that she is in daily pain and that her chronic pain medications are no longer working and so she sought treatment in the emergency room. While in the ED, she underwent basic workup which included a CT scan of the chest which showed progression of her known pulmonary fibrosis. There was no evidence of superimposed infiltrate. She was given multiple doses of IV Dilaudid without much resolution of her pain and so admission was requested for intractable pain. She was evaluated by hospice and deemed a candidate for [facility] hospice. She was admitted for pain control as [facility] hospice. Her pain is better controlled. She will be discharged to follow [facility] palliative care to determine whether to continue under palliative care or transition to their hospice service. She is being discharged home with [facility] for palliative care. <CARLA Mancera - Last Filed: 01/14/21 11:32> Time Spent with Patient Time attestation: Total time spent providing and/or coordinating discharge services: <CARLA Mancera Last Filed: 01/14/21 11:32> Discharge coordination time: Greater than 30 minutes <CARLA Mancera - Last Filed: 01/14/21 11:32> Quality: Stroke Does the patient have a stroke diagnosis?: No <CARLA Mancera Last Filed: 01/14/21 11:32> Physical Exam Vital Signs: Vital Signs: Last Vital Signs Temp 98.6 F 01/14/21 11:13 Pulse 103 H 01/14/21 11:13 Resp 20 01/14/21 11:13 BP 118/56 L 01/14/21 11:13 Pulse Ox 100 01/14/21 11:13 Oxygen Flow Rate 6 01/12/21 00:15 Body Mass Index 23.6 <CARLA Mancera Last Filed: 01/14/21 11:32> Const: General: no acute distress, alert and awake <CARLA Mancera Last Filed: 01/14/21 11:32> Nutritional Appearance: well nourished <CARLA Mancera - Last Filed: 01/14/21 11:32> HENMT: Head: Yes normocephalic and Yes atraumatic <CARLA Mancera - Last Filed: 01/14/21 11:32> Eyes: Sclerae: sclerae normal <CARLA Mancera - Last Filed: 01/14/21 11:32> Resp: Effort & Inspection: normal respiratory effort and no respiratory distress <CARLA Mancera - Last Filed: 01/14/21 11:32> Cardio: Rate: regular rate <CARLA Mancera - Last Filed: 01/14/21 11:32> Rhythm: regular rhythm <CARLA Mancera - Last Filed: 01/14/21 11:32> GI: Palpation (GI): Soft to palpation and nontender <CARLA Mancera - Last Filed: 01/14/21 11:32> Neuro: Cranial nerves: Yes CN's II-XII intact bilaterally and Yes Bilaterally intact EOM present <CARLA Mancera - Last Filed: 01/14/21 11:32> Discharge Plan Discharge Patient Disposition: Home Health Service <CARLA Mancera - Last Filed: 01/14/21 11:32> Discharge Diagnosis: Chronic respiratory failure Pulmonary fibrosis Chronic pain <CARLA Mancera - Last Filed: 01/14/21 11:32> Chronic respiratory failure Pulmonary fibrosis Chronic pain <Paul Richrads MD - Last Filed: 01/17/21 08:17> Referrals: [facility] [Outside] - 1 Week Brittany Augustine NP [Primary Care Provider] - 1 Week <CARLA Mancera - Last Filed: 01/14/21 11:32> Discharge Medications: New ondansetron HCl [Zofran] 4 mg tablet 4 mg PO Q8H PRN (Reason: nausea and vomiting) Qty: 14 RF: 0 alum-mag hydroxide-simeth [Maalox Advanced] 200-200-20 mg/5 mL suspension 10 ml PO Q6H PRN (Reason: dyspepsia) Qty: 300 RF: 0 Continued cyclobenzaprine 10 mg tablet 1 tab PO TID RF: 0 trazodone 50 mg tablet 1 tab PO BEDTIME RF: 0 clonazepam 1 mg tablet 1 tab PO TID RF: 0 hydroxyzine HCl 25 mg tablet 1 tab PO BEDTIME PRN (Reason: anxiety) RF: 0 metoprolol succinate 25 mg tablet extended release 24 hr 1 tab PO DAILY RF: 0 fluoxetine 20 mg capsule 3 cap PO QAM RF: 0 prednisone 20 mg tablet 1 tab PO DAILY RF: 0 sulfamethoxazole-trimethoprim 800-160 mg tablet 1 tab PO MOWEFR RF: 0 olanzapine 2.5 mg tablet 2.5 mg PO DAILY RF: 0 pantoprazole 40 mg tablet,delayed release (DR/EC) 40 mg PO DAILY RF: 0 <CARLA Mancera - Last Filed: 01/14/21 11:32> Discharge Orders: Discharge Order (Routine); Ordered 01/14/21 Ordered By: Amanda Garcia <CARLA Mancera - Last Filed: 01/14/21 11:32> Diet: advance to usual diet <CARLA Mancera - Last Filed: 01/14/21 11:32> advance to usual diet <Paul Richards MD - Last Filed: 01/17/21 08:17> Activity on Discharge: As tolerated <CARLA Mancera - Last Filed: 01/14/21 11:32> As tolerated <Paul Richards MD - Last Filed: 01/17/21 08:17> Stand Alone Forms: Patient Portal Discharge page <CARLA Mancera - Last Filed: 01/14/21 11:32> Care Plan Goals: See below <CARLA Mancera - Last Filed: 01/14/21 11:32> Health Concerns: Chronic respiratory failure/pulmonary fibrosis chronic pain <CARLA Mancera - Last Filed: 01/14/21 11:32> Plan of Treatment: Return to care under [facility] palliative care <CARLA Mancera - Last Filed: 01/14/21 11:32> Assessment: See discharge summary <CARLA Mancera - Last Filed: 01/14/21 11:32> Discharge Date/Time: 01/14/21 14:13 <CARLA Mancera - Last Filed: 01/14/21 11:32>
--- NOTE | 2021-01-14 11:33 | W.MHC.F2F ---
Service Date Service Date: 01/14/21 Encounter Date of encounter: 01/14/21 Reasons for Services Reason for detention: other (palliative care) MD Overseeing Care: Brittany Augustine Homebound: Leaving the home is medically contraindicated at this time without the asist of a device and/or another person due th the listed conditions above and below. Reason homebound: weakness related to hospital stay Certification: Based on the above findings, I certify that this patient is confined to the home and needs intermittent detention care, physical therapy and/or speech therapy, or continues to need occupational therapy. The patient is under my care, and I have initiated the establishment of the plan of care. The patient will be followed by a physician who will periodically review the plan of care.
--- NOTE | 2021-01-14 12:21 | PC.NURSE ---
Patient complaining of nausea and pain. States unable to take po medications. PRN zofran not due for some time. Medicated with prn dilaudid IV and Dr. Richards notified. Patient ate all of breakfast but still c/o nausea. Patient aware of plan to discharge. Took all PO meds without difficulty.
--- NOTE | 2021-01-14 13:30 | MHC.CM.PN ---
per jean-claude pt can self regulate her 5 liters of 02 therefore would not qualify for amb t/w spoke with pt who authorized booking of private pay chair van
== END 2021-01-14 14:13 | disposition home health service (06) | DRG 951 ==
LOC: HO.ED 01-12 09:03 → HO.EDOVER 01-12 15:45 → HO.IMC 01-12 19:43
PROVIDERS: Emergency Medicine; Admitting Provider Family Medicine; Emergency Provider Emergency Medicine; PCP Nurse Practitioner Adult Health; Visit Provider Family Medicine
DX: Z51.5 Encounter for palliative care (principal); J96.11 Chronic respiratory failure with hypoxia; G89.29 Other chronic pain; J84.10 Pulmonary fibrosis, unspecified; Z20.822 Contact with and (suspected) exposure to COVID-19; Z88.0 Allergy status to penicillin; Z88.6 Allergy status to analgesic agent; Z79.899 Other long term (current) drug therapy
CPT/HCPCS: 36415; 71045; 71250; 80048; 83690; 83880; 84484; 85025; 85379; 87635; 93005; 96374; 96375; 99285; J1170; J2060; J2405; J2930

== ENCOUNTER 2021-01-14 14:39 | Emergency (ER) | payer OTHER, MEDICARE, SELFPAY ==
[2021-01-14 14:56] VITALS: BP 111/46; PULSE 96; RESP 16; TEMP 36.9; O2SAT 98; BMI 31.0
--- NOTE | 2021-01-14 15:18 | ED_ITS ---
HPI - Altered Mental Status General Chief Complaint: Altered Mental Status Stated Complaint: ams Time Seen by Provider: 01/14/21 15:18 Source: patient Mode of arrival: EMS Limitations: no limitations History of Present Illness HPI narrative: Patient is 45 years old with past medical history of chronic respiratory failure on oxygen 6 L by nasal cannula interstitial lung disease/pulmonary fibrosis, PTSD/anxiety just discharged from [facility] few hours ago comes back for increased lethargic on arrival patient awake alert denies any excessive use of pain medicine. Does not want Narcan responding to questions. 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 on arrival patient's blood pressure was 111/46 pulse rate 96 respiratory rate 16 temperature 98.5 degrees saturating 98% on room air Related Data Home Medications Medication Instructions Recorded Confirmed clonazepam 1 tab PO TID 01/12/21 01/12/21 cyclobenzaprine 1 tab PO TID 01/12/21 01/12/21 fluoxetine 3 cap PO QAM 01/12/21 01/12/21 hydroxyzine HCl 1 tab PO BEDTIME PRN 01/12/21 01/12/21 metoprolol succinate 1 tab PO DAILY 01/12/21 01/12/21 olanzapine 2.5 mg PO DAILY 01/12/21 01/12/21 pantoprazole 40 mg PO DAILY 01/12/21 01/12/21 prednisone 1 tab PO DAILY 01/12/21 01/12/21 sulfamethoxazole-trimethoprim 1 tab PO MOWEFR 01/12/21 01/12/21 trazodone 1 tab PO BEDTIME 01/12/21 01/12/21 Previous Rx's Medication Instructions Recorded alum-mag hydroxide-simeth [Maalox 10 ml PO Q6H PRN #300 ml 01/14/21 Advanced] ondansetron HCl [Zofran] 4 mg PO Q8H PRN #14 tab 01/14/21 Allergies Allergy/AdvReac Type Severity Reaction Status Date / Time Penicillins [PCN] Allergy Severe HIVES, Verified 01/12/21 00:15 ANGIOEDEMA fentanyl [FENTANYL] Allergy Intermediate UNKNOWN Verified 01/12/21 00:15 garlic [GARLIC] Allergy Unknown ANAPHYLAXIS Verified 01/12/21 00:15 mustard [MUSTARDS] Allergy Unknown ANAPHYLAXIS Verified 01/12/21 00:15 naproxen [NAPROXEN] Allergy Unknown UNKNOWN Verified 01/12/21 00:15 paroxetine [Paxil] Allergy Unknown Unknown Verified 01/12/21 00:15 penicillin V Allergy Unknown Unknown Verified 01/12/21 00:15 aspirin [ASA] AdvReac Intermediate HIVES, LIP Verified 01/12/21 00:15 SWELLING SUN Allergy Severe BLISTERS, Uncoded 01/12/21 00:15 ABD PAIN, DUE TO PORPHYRIA Review of Systems Review of Systems: Yes all other systems are reviewed and are negative [facility] Social History Social History Household Members: Spouse Housing: Apartment Alcohol intake: never Smoking Status: Unknown if ever smoked Use of substances other than those prescribed or required for medical reasons: No Advance Directives: Yes Advance Directives on File: Yes Advance Directives Date on File: 01/12/21 Patient : No service: No Current occupational status: unemployed and disabled Physical Exam Vital Signs: Vital Signs: Last Vital Signs Temp 98.5 F 01/14/21 14:56 Pulse 96 01/14/21 14:56 Resp 16 01/14/21 14:56 BP 111/46 L 01/14/21 14:56 Pulse Ox 98 01/14/21 14:56 Body Mass Index 31.0 Appearance: Alert. Oriented X3. No acute distress. History arousable sleepy otherwise Eyes: PERRLA, No Nystagmus ENT: Pharynx normal. Oral Mucosa moist Neck: Normal inspection. Neck supple. CVS: Normal heart rate and rhythm. Pulses normal. Respiratory: No respiratory distress. Equal air entry bilateral, no wheezing/rales/rhonchi Abdomen: Soft and nontender. Bowel sounds are present, no mass palpable, no CVA tenderness Skin: Skin warm and dry. Normal skin color. Normal skin turgor. Extremities: No lower extremity edema. No calf tenderness Neuro: Oriented X 3. No motor deficit. No sensory deficit.No cerebellar signs , cranial nerves II-XII intact MDM - Altered Mental Status MDM Narrative Medical decision making narrative: Patient with chronic lung respiratory failure secondary to pulmonary fibrosis on home oxygen just discharged from the floor earlier today clinically patient is stable saturating 99% on 3 L patient is falling asleep while talking will give her Narcan and evaluate again Patient partially responded to Narcan again went to sleep will do arterial blood gases. ABG seems like venous blood but pCO2 is 49 pH is 7.41 patient is more alert and awake will discharge patient back home be followed up with hospice care at [facility] Medical Records Attestation: I reviewed the patient's medical records. Lab Data Labs: Lab Results 01/14/21 Range/Units 15:55 O2 Saturation 80.0 % ABG pH at Pt Temp 7.41 (7.35-7.45) ABG pH (Temp Correct) 7.41 (7.35-7.45) ABG pCO2 at Pt Temp 50 H (32-45) mmHg ABG pCO2 (Temp Corrct 50 H (32-45) mmHg ABG pO2 at Pt Temp 49 L* (83-108) mmHg ABG pO2 (Temp Correct 49 L* (83-108) ABG HCO3 32 H (22-26) mmol/L ABG Base Excess (Actual) 6.7 mmol/L Discharge Plan Discharge Clinical Impression: Chronic respiratory failure with hypoxia Altered mental status Qualifiers: Altered mental status type: transient alteration of awareness Qualified Code(s): R40.4 - Transient alteration of awareness Patient Disposition: Home, Self-Care Instructions: Chronic Respiratory Failure (DC) Additional Instructions: Continue treatment as prescribed. Take only prescribed doses of your medication Prescriptions: No Action cyclobenzaprine 10 mg tablet 1 tab PO TID RF: 0 trazodone 50 mg tablet 1 tab PO BEDTIME RF: 0 clonazepam 1 mg tablet 1 tab PO TID RF: 0 hydroxyzine HCl 25 mg tablet 1 tab PO BEDTIME PRN (Reason: anxiety) RF: 0 metoprolol succinate 25 mg tablet extended release 24 hr 1 tab PO DAILY RF: 0 fluoxetine 20 mg capsule 3 cap PO QAM RF: 0 prednisone 20 mg tablet 1 tab PO DAILY RF: 0 sulfamethoxazole-trimethoprim 800-160 mg tablet 1 tab PO MOWEFR RF: 0 olanzapine 2.5 mg tablet 2.5 mg PO DAILY RF: 0 pantoprazole 40 mg tablet,delayed release (DR/EC) 40 mg PO DAILY RF: 0 ondansetron HCl [Zofran] 4 mg tablet 4 mg PO Q8H PRN (Reason: nausea and vomiting) Qty: 14 RF: 0 alum-mag hydroxide-simeth [Maalox Advanced] 200-200-20 mg/5 mL suspension 10 ml PO Q6H PRN (Reason: dyspepsia) Qty: 300 RF: 0
[2021-01-14] MEDS: Naloxone HCl Nasal 4 MG SPRAY NOSTRILALT (15:33)
[2021-01-14 15:53] VITALS: O2SAT 94
--- NOTE | 2021-01-14 15:59 | PC.NURSE ---
HOSPITALIST AT BEDSIDE STATES PT SAME DC TODAY
[2021-01-14 16:00] LABS: ABG Refer to POC result
[2021-01-14 16:05] LABS: ABG Base Excess 6.7 mmol/L; ABG HCO3 32 mmol/L (22-26); ABG pCO2 50 mmHg (32-45); ABG pCO2 TC 50 mmHg (32-45); ABG pH 7.41 (7.35-7.45); ABG pH TC 7.41 (7.35-7.45); ABG pO2 49 mmHg (83-108); ABG pO2 TC 49 (83-108)
== END 2021-01-14 18:34 | disposition home or self-care (01) ==
PROVIDERS: Emergency Provider Internal Medicine
DX: J96.11 Chronic respiratory failure with hypoxia (principal); R40.4 Transient alteration of awareness; Z79.899 Other long term (current) drug therapy
CPT/HCPCS: 99284

== ENCOUNTER 2021-04-04 16:38 | Inpatient (IN) | payer OTHER, MEDICARE, SELFPAY ==
--- NOTE | ~2021-04-04 | XR_ITS ---
EXAMINATION: XR CHEST CLINICAL INFORMATION: Cough and chest pain. Rule out pneumonia. COMPARISON: Chest x-ray and chest CT January 12, 2021 TECHNIQUE: Frontal view of the chest was obtained. FINDINGS: Stable cardiac silhouette. Low lung volumes. Unchanged asymmetric elevation right hemidiaphragm. No lobar consolidation identified. No pleural effusion or pneumothorax. XR/XR chest 1V IMPRESSION: Stable examination demonstrating no acute pulmonary pathology.
--- NOTE | ~2021-04-04 | CT_ITS ---
EXAMINATION: CT ABDOMEN AND PELVIS WITH CONTRAST CLINICAL INFORMATION: Vomiting. Elevated lactic acid. COMPARISON: 03/06/2020 TECHNIQUE: Multidetector volumetric images were obtained from the superior aspect of the liver through the pubic symphysis following administration 85 mL of Omnipaque 350 intravenous contrast. Sagittal and coronal reformatted images were obtained on the technologist's workstation. Oral contrast: No This CT examination was performed using dose optimization techniques as appropriate, variously including the following: *Automated exposure control *Adjustment of mA and/or kV according to patient size (this includes techniques or standardized protocols for targeted exams where dose is matched to indication/reason for exam; i.e. extremities or head) *Use of iterative reconstruction technique DLP: 825 mGy-cm FINDINGS: LUNG BASES: Groundglass opacities are seen at both lung bases, consistent with the appearance on recent prior chest CT. LIVER, GALLBLADDER, AND BILIARY TREE: The liver is normal in size, shape, and attenuation. No focal hepatic lesion or biliary ductal dilatation is present. The gallbladder is unremarkable with no evidence of radiopaque gallstones, gallbladder wall thickening, or obvious pericholecystic inflammatory changes. PANCREAS: Unremarkable. SPLEEN: Unremarkable. ADRENAL GLANDS: Unremarkable. KIDNEYS AND URETERS: The kidneys are normal in size, shape, and attenuation. No hydronephrosis, hydroureter, or calculi seen. No perinephric stranding. BLADDER: Unremarkable. GASTROINTESTINAL TRACT: The stomach is unremarkable. Normal caliber small bowel. No obstruction. The appendix is likely absent. No colonic wall thickening or inflammatory change. Moderate colonic stool burden. No free air or free fluid. ABDOMINAL WALL: No significant hernia is appreciated. LYMPH NODES: Normal. VASCULAR: Unremarkable. PELVIC VISCERA: Lobulated appearance of the uterus suggestive of fibroids. No adnexal mass. OSSEOUS STRUCTURES: No acute or suspicious osseous abnormality. CT/CT abdomen pelvis w con IMPRESSION: Redemonstration of bibasilar lung opacities. No acute findings in the abdomen or pelvis. Moderate colonic stool burden. Uterine fibroids.
--- NOTE | ~2021-04-04 | CT_ITS ---
EXAMINATION: CT CHEST WITHOUT CONTRAST CLINICAL INFORMATION: Cough, shortness of breath, fever. Rule out pneumonia. COMPARISON: 01/12/2021 TECHNIQUE: Multidetector volumetric CT imaging of the chest was done. Axial MIP volume rendering provided. Sagittal and coronal reformatted images were obtained. This CT examination was performed using dose optimization techniques as appropriate, variously including the following: *Automated exposure control *Adjustment of mA and/or kV according to patient size (this includes techniques or standardized protocols for targeted exams where dose is matched to indication/reason for exam; i.e. extremities or head) *Use of iterative reconstruction technique DLP: 269 mGy-cm FINDINGS: SINGLE CORNER CUTTER: Low lung volumes. LUNGS: Lung volumes are low. Again seen are multifocal regions of groundglass attenuation, most pronounced at the bases and apices with linear, subpleural reticular opacities and interlobular septal thickening. Additional new, groundglass consolidation is evident within the right upper lobe anteriorly. Central airways are clear. No bronchiectasis. MEDIASTINUM: Heart is normal in size. A few small subcentimeter mediastinal lymph nodes are identified. No adenopathy. Thyroid gland is unremarkable. No pericardial effusion. PLEURA: There is no pleural effusion. No pleural mass or thickening. AXILLA: No lymphadenopathy. UPPER ABDOMEN: Unremarkable. OSSEOUS STRUCTURES: Minimal degenerative disc disease midthoracic spine. No acute osseous findings. CT/CT chest wo con IMPRESSION: Low lung volumes with symmetric multifocal groundglass opacities and subpleural reticulation. Aside from a new focus of groundglass consolidation in the anterior aspect of the right upper lobe, this findings are not appreciably changed as compared to 01/12/2021. As previously noted, this may correspond to nonspecific interstitial pneumonia. The new groundglass attenuation in the right upper lobe may correspond to progression of the chronic process or a new, small focus of superimposed pneumonia.
--- NOTE | 2021-04-04 16:52 | ED_ITS ---
HPI - Chest Pain General Chief Complaint: Dyspnea Stated Complaint: pneumonia chest pain Time Seen by Provider: 04/04/21 16:40 Source: patient and EMS Mode of arrival: EMS Limitations: no limitations History of Present Illness HPI narrative: 45 years old with past medical history of chronic respiratory failure on oxygen 6 L by nasal cannula interstitial lung disease/pulmonary fibrosis on palliative therapy, PTSD/anxiety?here with complaints of increasing SOB, cough and chest wall pain x 3 days. Diagnosed with PNA 04/01 by OP and started on doxycycline. Takes pptx bactrim and 20mg prednisone daily. Today started vomiting and unable to maintain PO or keep any other daily medications including dilaudid down. Subjective fevers, chills. No leg swelling or pain, no abdominal pain or diarrhea. Of note patient takes Dilaudid 2mg every 6 hrs for chronic pain. She tells me her continuing education dean has given her 12 months to live (last seen July 2020). She is not currently on hospice but is unable to explain why thi s is. She is on palliative currently. Related Data Home Medications Medication Instructions Recorded Confirmed clonazepam 1 mg tablet 1 tab PO TID 01/12/21 04/04/21 cyclobenzaprine 10 mg tablet 1 tab PO TID 01/12/21 04/04/21 fluoxetine 20 mg capsule 3 cap PO QAM 01/12/21 04/04/21 hydroxyzine HCl 25 mg tablet 1 tab PO BEDTIME PRN 01/12/21 04/04/21 metoprolol succinate 25 mg 1 tab PO DAILY 01/12/21 04/04/21 tablet,extended release 24 hr prednisone 20 mg tablet 1 tab PO DAILY 01/12/21 04/04/21 sulfamethoxazole 800 1 tab PO MOWEFR 01/12/21 04/04/21 mg-trimethoprim 160 mg tablet trazodone 50 mg tablet 1 tab PO BEDTIME 01/12/21 04/04/21 doxycycline hyclate 100 mg capsule 1 cap PO BID 04/04/21 04/04/21 hydromorphone 2 mg tablet 1 tab PO QID 04/04/21 04/04/21 olanzapine 10 mg tablet 1 tab PO DAILY 04/04/21 04/04/21 Allergies Allergy/AdvReac Type Severity Reaction Status Date / Time Penicillins [PCN] Allergy Severe HIVES, Verified 04/04/21 16:54 ANGIOEDEMA fentanyl [FENTANYL] Allergy Intermediate UNKNOWN Verified 04/04/21 16:54 garlic [GARLIC] Allergy Unknown ANAPHYLAXIS Verified 04/04/21 16:54 mustard [MUSTARDS] Allergy Unknown ANAPHYLAXIS Verified 04/04/21 16:54 naproxen [NAPROXEN] Allergy Unknown UNKNOWN Verified 04/04/21 16:54 paroxetine [Paxil] Allergy Unknown Unknown Verified 04/04/21 16:54 penicillin V Allergy Unknown Unknown Verified 04/04/21 16:54 aspirin [ASA] AdvReac Intermediate HIVES, LIP Verified 04/04/21 16:54 SWELLING SUN Allergy Severe BLISTERS, Uncoded 01/12/21 00:15 ABD PAIN, DUE TO PORPHYRIA Review of Systems Review of Systems: Yes all other systems are reviewed and are negative Constitutional: Constitutional: Reports no additional constitutional complain ts, Denies body ache(s), Denies chills, Denies fever(s), Denies headache(s) and Denies weakness Eyes: Eyes: Reports no additional eye complaints and Denies change in vision ENT: Reports system reviewed and no additional complaints, except as documented, Denies dizziness, Denies headache(s), Denies nasal congestion, Denies nasal discharge and Denies neck pain Cardiovascular: Cardiovascular: Reports no additional cardiovascular complaints, Reports chest pain, Denies leg edema and Reports dyspnea Respiratory: Respiratory: Reports no additional respiratory complaints, Reports cough and Reports dyspnea Gastrointestinal: Gastrointestinal: Reports no additional gastrointestinal complaints, Denies abdominal pain, Denies diarrhea, Denies nausea and Denies vomiting Genitourinary: Genitourinary: Reports no additional female genitourinary complaints and Denies urinary incontinence Musculoskeletal: Musculoskeletal: Reports no additional musculoskeletal complaints, Denies back pain, Denies arthralgias, Denies joint swelling, Denies neck pain, Denies numbness and Denies tingling Integumentary/Breasts: Skin/Breast: Reports system reviewed and no additional complaints, except as docu and Denies rash Neurologic: Reports system reviewed and no additional complaints, except as documented, Denies Abnormal speech present, Denies dizziness, Denies headache(s), Denies numbness, Denies tingling and Denies weakness PMF Past Medical History Attestation statement: The following information was validated with the patient. Source: old records reviewed and nursing notes reviewed Social History Social History Household Members: Spouse Housing: Apartment Alcohol intake: never Patient Tobacco Use Status: Never used Tobacco Smoked in Last 30 Days: No Use of substances other than those prescribed or required for medical reasons: No Advance Directives: No Advance Directives Information Provided: No Advance Directives Date on File: 01/12/21 Patient : No service: No Current occupational status: unemployed and disabled Physical Exam Vital Signs: Vital Signs: Last Vital Signs Temp 98.1 F 04/04/21 20:00 Pulse 119 H 04/04/21 20:00 Resp 18 04/04/21 20:00 BP 115/68 04/04/21 20:00 Pulse Ox 97 04/04/21 20:00 Oxygen Flow Rate 2 04/04/21 16:54 Body Mass Index 24.9 Const: General: cooperative and anxious Orientation/consciousness: patient oriented x3 Limitations: no limitations HENMT: Head: Yes normal to inspection Ears: hearing grossly normal bilaterally General nose exam: Normal external nose present Face and sinus: Yes normal facial exam Mouth: Normal oral and palatal mucosa present Throat: Yes posterior oropharynx normal Eyes: General: appearance normal, both eyes and all related structures Pupils: Equal, round and reactive pupils present Neck: Neck: Yes normal visual inspection Chest: Chest palpation & inspection: normal inspection of the chest and tenderness (diffuse tenderness anterior chest ) Resp: Other: diminished BS bilaterally Effort & Inspection: normal respiratory effort Cardio: Rate: regular rate Rhythm: regular rhythm Peripheral pulses: Peripheral pulses 2+ throughout GI: Inspection: Yes normal to inspection Palpation (GI): Soft to palpation and nontender Auscultation: normal bowel sounds Back/Spine/Pelvis: Thoracic/Lumbar Spine: thoracic and lumbar spine normal to inspection Skin: General skin exam: no rashes or lesions noted Neuro: General: patient oriented x3, no focal motor deficits and normal sensation to monofilament Cranial nerves: Yes Equal, round and reactive pupils present Cognition (Neuro): normal cognition Speech: No Abnormal speech present Gait exam (Neuro): Normal gait present Motor exam (neuro): 5/5 motor strength present throughout Extrem: General: Yes normal to inspection, Yes no pedal edema and Yes no calf tenderness Course Course Course Narrative: 45-year-old female with chronic pain secondary to end-stage interstitial lung disease, patient is using hydro morphine p.o. at home could not take it because the nausea and vomiting in addition to antibiotics, prednisone came in with exacerbation of her chronic pain and concern for PNA (increasing SOB, cough, subjective fevers). Vomited on arrival. Will check labs, CXR, EKG, COVID screen. Will give duoneb, IV solumedrol, dialaudid, zofran and re-assess. -tachycardia, tachypnea d/t CLD and anxiety not from infection. 1899-CXR shows no acute finding. D/t symptoms will check Ct Chest to r/o underlying PNA. 2049-CT concerning for superimposed pneumonia in addition to the patient's underlying interstitial lung disease. Patient vomited a 2nd time. Unable to tolerate p.o.. She has a mildly elevated leukocytosis which is likely multifactorial as the patient takes chronic prednisone. No fever. At this time infection is suspected. Antibiotics ordered. Call out to medicine to discuss for admission. 2099-Discussed with Dr Tian who accepted admission. MDM - Chest Pain Medical Records Data Attestation: I reviewed the patient's medical records. Lab Data Attestation: I reviewed the patient's lab results. Result diagrams: 04/04/21 18:16 04/04/21 19:38 Labs: Lab Results 04/04/21 04/04/21 04/04/21 Range/Units 18:16 18:16 18:16 WBC 18.0 H (4.8-10.8) X10*3/uL RBC 4.06 L (4.20-5.50) X10*6/uL Hgb 10.6 L (12.0-16.0) g/dl Hct 34.4 L (37-47) % MCV 84.7 (80-98) fL MCH 26.1 L (27.0-33.0) pg MCHC 30.8 L (31.0-35.0) g/dl RDW 15.7 (11.0-16.0) % Plt Count 480 H (160-400) X10*3/uL MPV 8.0 L (9.4-12.3) fL Immature Gran % (Auto) 2.6 H (0.0-0.4) % Neut % (Auto) 57.8 (45-73) % Lymph % (Auto) 31.3 (20-40) % Lipscomb % (Auto) 7.7 (2-11) % Eos % (Auto) 0.4 (0-4) % Baso % (Auto) 0.2 (0-2) % Lymph # (Auto) 5.6 H (1.2-4.9) X10*3/uL Lipscomb # (Auto) 1.4 H (0.1-1.2) X10*3/uL Eos # (Auto) 0.1 (0.0-0.4) X10*3/uL Baso # (Auto) 0.0 (0.0-0.2) X10*3/uL Abs Immat Gran (auto) 0.46 H (0.00-0.03) X10*3/uL Absolute Neuts (auto) 10.4 H (2.0-8.3) X10*3/uL Absolute Nucleated RBC 0.000 (0.0-0.012) X10*3/uL Nucleated RBC % (auto) 0.0 (0.0-0.2) /100WBC Smear Tech's Comments VERIFIED VBG pH (7.32-7.43) VBG pCO2 mmHg VBG pO2 mmHg VBG HCO3 (22-26) mmol/L VBG O2 Saturation % VBG Base Excess mmol/L Sodium (135-145) mmol/L Potassium (3.3-5.1) mmol/L Chloride (96-108) mmol/L Carbon Dioxide (22-29) mmol/L Anion Gap (12-20) BUN (9-16) mg/dL Creatinine (0.5-1.4) mg/dL Estim Creat Clear Calc Estimated GFR Random Glucose (60-115) mg/dL Lactic Acid 2.8 H* (0.5-2.0) mmol/L Calcium (8.4-10.2) mg/dL Magnesium (1.6-2.6) mg/dL Total Bilirubin (0.0-1.0) mg/dL Direct Bilirubin (0.0-0.5) mg/dL AST (5-31) U/L ALT (0-31) U/L Alkaline Phosphatase (39-117) U/L Troponin I High Sens < 3.5 (<3.5-17.0) ng/L B-Natriuretic Peptide (<100) pg/mL Total Protein (6.5-8.0) g/dL Albumin (3.5-5.0) g/dL Coronavirus (PCR) (Negative) Influenza Type A (PCR) (Negative) Influenza Type B (PCR) (Negative) RSV RNA Qual (PCR) (Negative) 04/04/21 04/04/21 04/04/21 Range/Units 18:16 18:17 18:33 WBC (4.8-10.8) X10*3/uL RBC (4.20-5.50) X10*6/uL Hgb (12.0-16.0) g/dl Hct (37-47) % MCV (80-98) fL MCH (27.0-33.0) pg MCHC (31.0-35.0) g/dl RDW (11.0-16.0) % Plt Count (160-400) X10*3/uL MPV (9.4-12.3) fL Immature Gran % (Auto) (0.0-0.4) % Neut % (Auto) (45-73) % Lymph % (Auto) (20-40) % Lipscomb % (Auto) (2-11) % Eos % (Auto) (0-4) % Baso % (Auto) (0-2) % Lymph # (Auto) (1.2-4.9) X10*3/uL Lipscomb # (Auto) (0.1-1.2) X10*3/uL Eos # (Auto) (0.0-0.4) X10*3/uL Baso # (Auto) (0.0-0.2) X10*3/uL Abs Immat Gran (auto) (0.00-0.03) X10*3/uL Absolute Neuts (auto) (2.0-8.3) X10*3/uL Absolute Nucleated RBC (0.0-0.012) X10*3/uL Nucleated RBC % (auto) (0.0-0.2) /100WBC Smear Tech's Comments VBG pH 7.34 (7.32-7.43) VBG pCO2 53 mmHg VBG pO2 81 mmHg VBG HCO3 29 H (22-26) mmol/L VBG O2 Saturation 93.0 % VBG Base Excess 2.7 mmol/L Sodium (135-145) mmol/L Potassium (3.3-5.1) mmol/L Chloride (96-108) mmol/L Carbon Dioxide (22-29) mmol/L Anion Gap (12-20) BUN (9-16) mg/dL Creatinine (0.5-1.4) mg/dL Estim Creat Clear Calc Estimated GFR Random Glucose (60-115) mg/dL Lactic Acid (0.5-2.0) mmol/L Calcium (8.4-10.2) mg/dL Magnesium (1.6-2.6) mg/dL Total Bilirubin (0.0-1.0) mg/dL Direct Bilirubin (0.0-0.5) mg/dL AST (5-31) U/L ALT (0-31) U/L Alkaline Phosphatase (39-117) U/L Troponin I High Sens (<3.5-17.0) ng/L B-Natriuretic Peptide < 10 (<100) pg/mL Total Protein (6.5-8.0) g/dL Albumin (3.5-5.0) g/dL Coronavirus (PCR) NEGATIVE (Negative) Influenza Type A (PCR) NEGATIVE (Negative) Influenza Type B (PCR) NEGATIVE (Negative) RSV RNA Qual (PCR) NEGATIVE (Negative) 04/04/21 Range/Units 19:38 WBC (4.8-10.8) X10*3/uL RBC (4.20-5.50) X10*6/uL Hgb (12.0-16.0) g/dl Hct (37-47) % MCV (80-98) fL MCH (27.0-33.0) pg MCHC (31.0-35.0) g/dl RDW (11.0-16.0) % Plt Count (160-400) X10*3/uL MPV (9.4-12.3) fL Immature Gran % (Auto) (0.0-0.4) % Neut % (Auto) (45-73) % Lymph % (Auto) (20-40) % Lipscomb % (Auto) (2-11) % Eos % (Auto) (0-4) % Baso % (Auto) (0-2) % Lymph # (Auto) (1.2-4.9) X10*3/uL Lipscomb # (Auto) (0.1-1.2) X10*3/uL Eos # (Auto) (0.0-0.4) X10*3/uL Baso # (Auto) (0.0-0.2) X10*3/uL Abs Immat Gran (auto) (0.00-0.03) X10*3/uL Absolute Neuts (auto) (2.0-8.3) X10*3/uL Absolute Nucleated RBC (0.0-0.012) X10*3/uL Nucleated RBC % (auto) (0.0-0.2) /100WBC Smear Tech's Comments VBG pH (7.32-7.43) VBG pCO2 mmHg VBG pO2 mmHg VBG HCO3 (22-26) mmol/L VBG O2 Saturation % VBG Base Excess mmol/L Sodium 145 (135-145) mmol/L Potassium 4.1 (3.3-5.1) mmol/L Chloride 106 (96-108) mmol/L Carbon Dioxide 25 (22-29) mmol/L Anion Gap 18 (12-20) BUN 10 (9-16) mg/dL Creatinine 0.69 (0.5-1.4) mg/dL Estim Creat Clear Calc 96.1 Estimated GFR > 60 Random Glucose 106 (60-115) mg/dL Lactic Acid (0.5-2.0) mmol/L Calcium 8.7 D (8.4-10.2) mg/dL Magnesium 1.9 (1.6-2.6) mg/dL Total Bilirubin 0.2 (0.0-1.0) mg/dL Direct Bilirubin < 0.2 (0.0-0.5) mg/dL AST 26 (5-31) U/L ALT 21 (0-31) U/L Alkaline Phosphatase 76 (39-117) U/L Troponin I High Sens (<3.5-17.0) ng/L B-Natriuretic Peptide (<100) pg/mL Total Protein 7.2 (6.5-8.0) g/dL Albumin 4.1 (3.5-5.0) g/dL Coronavirus (PCR) (Negative) Influenza Type A (PCR) (Negative) Influenza Type B (PCR) (Negative) RSV RNA Qual (PCR) (Negative) Imaging Data Chest x-ray: Attestation: I personally reviewed and interpreted this imaging study as follows: Radiologist's impression: [address] [address] XRay Report Signed Patient: Elba Sheriff MR#: [id number] : 1975 Acct:[id number] Age/Sex: 45 / F ADM Date: 04/04/21 Loc: HO.ED Attending Dr: Ordering Physician: ANGELES MCMULLEN NP Date of Service: 04/04/21 Procedure(s): XR chest 1V Accession Number(s): [id number] cc: ANGELES MCMULLEN NP~ EXAMINATION: XR CHEST CLINICAL INFORMATION: Cough and chest pain. Rule out pneumonia. COMPARISON: Chest x-ray and chest CT January 12, 2021 TECHNIQUE: Frontal view of the chest was obtained. FINDINGS: Stable cardiac silhouette. Low lung volumes. Unchanged asymmetric elevation right hemidiaphragm. No lobar consolidation identified. No pleural effusion or pneumothorax. XR/XR chest 1V IMPRESSION: Stable examination demonstrating no acute pulmonary pathology. ? CT scan - chest: Attestation: I personally reviewed and interpreted this imaging study as follows: Radiologist's impression: IMPRESSION: Low lung volumes with symmetric multifocal groundglass opacities and subpleural reticulation. Aside from a new focus of groundglass consolidation in the anterior aspect of the right upper lobe, this findings are not appreciably changed as compared to 01/12/2021. As previously noted, this may correspond to nonspecific interstitial pneumonia. The new groundglass attenuation in the right upper lobe may correspond to progression of the chronic process or a new, small focus of superimposed pneumonia. ECG Data ECG #1: Attestation: I personally reviewed and interpreted this ECG as follows: ECG interpretation date: 04/04/21 ECG interpretation time: 17:22 Interpretation: ST with rate 112, normal pr, normal qrs, normal qtc T-wave inversions in lead V2 and V3 unchanged from EKG 01/12/2021 Discharge Plan Discharge Clinical Impression: Pulmonary fibrosis, Intractable pain, Pneumonia Patient Disposition: Admitted As Inpatient Prescriptions: No Action cyclobenzaprine 10 mg tablet 1 tab PO TID RF: 0 trazodone 50 mg tablet 1 tab PO BEDTIME RF: 0 clonazepam 1 mg tablet 1 tab PO TID RF: 0 hydroxyzine HCl 25 mg tablet 1 tab PO BEDTIME PRN (Reason: anxiety) RF: 0 metoprolol succinate 25 mg tablet extended release 24 hr 1 tab PO DAILY RF: 0 fluoxetine 20 mg capsule 3 cap PO QAM RF: 0 prednisone 20 mg tablet 1 tab PO DAILY RF: 0 sulfamethoxazole-trimethoprim 800-160 mg tablet 1 tab PO MOWEFR RF: 0 doxycycline hyclate 100 mg capsule 1 cap PO BID RF: 0 olanzapine 10 mg tablet 1 tab PO DAILY RF: 0 hydromorphone 2 mg tablet 1 tab PO QID RF: 0
[2021-04-04 16:54] VITALS: BP 128/79; BP 157/97; PULSE 117; PULSE 120; RESP 26; TEMP 37.1; O2SAT 100; BMI 24.9
--- NOTE | 2021-04-04 17:00 | ECG_ITS ---
Test Reason : DYSPNEA Blood Pressure : / mmHG Vent. Rate : 112 BPM Atrial Rate : 112 BPM P-R Int : 150 ms QRS Dur : 078 ms QT Int : 334 ms P-R-T Axes : 033 -06 159 degrees QTc Int : 455 ms Sinus tachycardia Left ventricular hypertrophy with repolarization abnormality Abnormal ECG When compared with ECG of 12-JAN-2021 00:02, No significant change was found Referred By: Nancy Sapp Electronically Signed By:GODWIN MARTINEZ MD
[2021-04-04] MEDS: Albuterol/Iprat 2.5/0.5MG 3 ML AMPUL.NEB INHALE (17:25)
[2021-04-04 17:27] VITALS: PULSE 111; O2SAT 100
[2021-04-04 18:00] VITALS: BP 131/66; PULSE 118; RESP 22; TEMP 36.9; O2SAT 100
[2021-04-04 18:26] LABS: Basophils Percent Auto 0.2 % (0-2); Eosinophils Absolute Auto 0.1 X10*3/uL (0.0-0.4); Eosinophils Percent Auto 0.4 % (0-4); Hematocrit 34.4 % (37-47); Hemoglobin 10.6 g/dl (12.0-16.0); Imm Gran Abs Auto 0.46 X10*3/uL (0.00-0.03); Imm Gran Pct Auto 2.6 % (0.0-0.4); Lymphocytes Absolute Auto 5.6 X10*3/uL (1.2-4.9); Lymphocytes Percent Auto 31.3 % (20-40); MANUAL DIFF FLAG SCAN; Mean Corpuscular HGB Conc 30.8 g/dl (31.0-35.0); Mean Corpuscular Hemoglobin 26.1 pg (27.0-33.0); Mean Corpuscular Volume 84.7 fL (80-98); Monocytes Absolute Auto 1.4 X10*3/uL (0.1-1.2); Monocytes Percent Auto 7.7 % (2-11); Neutrophils Absolute Auto 10.4 X10*3/uL (2.0-8.3); Neutrophils Percent Auto 57.8 % (45-73); Platelet Count 480 X10*3/uL (160-400); Red Blood Count 4.06 X10*6/uL (4.20-5.50); Red Cell Distribution Width 15.7 % (11.0-16.0); SCAN SMEAR FLAG 1
[2021-04-04 18:40] LABS: VBG Base Excess 2.7 mmol/L; VBG HCO3 29 mmol/L (22-26); VBG pCO2 53 mmHg; VBG pH 7.34 (7.32-7.43); VBG pO2 81 mmHg
[2021-04-04 18:47] LABS: SLIDE REVIEW VERIFIED
[2021-04-04] MEDS: HYDROmorphone HCl 1 MG/ML SYRINGE IVPUSH ×2 (18:51→22:11)
[2021-04-04] MEDS: ondansetron HCL 4 MG/2 ML VIAL IVPUSH ×2 (18:52→22:14)
[2021-04-04] MEDS: methylPREDNISolone Sod Succ 125 MG/2 ML VIAL 80 MG IVPUSH (18:52)
[2021-04-04] MEDS: 0.9 % Sodium Chloride 1,000 ML 999 ML IV (18:53)
--- NOTE | 2021-04-04 18:58 | PC.NURSE ---
pt has calmed slightly. skin remains pwd but slightly flush. bases are diminished. dilaudid hasbeen helpful per patient. remains ST on monitor. labs hemolized and need to be redrawn. pt is a very difficult stick.
[2021-04-04 19:03] LABS: B Type Natriuretic Peptide < 10 pg/mL (<100); Troponin-I High Sensitivity < 3.5 ng/L (<3.5-17.0)
[2021-04-04 19:17] LABS: Lactic Acid 2.8 mmol/L (0.5-2.0)
[2021-04-04 19:41] LABS: Venous Blood Gas Refer to POC result
[2021-04-04 19:46] LABS: Influenza A PCR NEGATIVE (Negative); Influenza B PCR NEGATIVE (Negative); Resp Syncy Virus RNA Qual PCR NEGATIVE (Negative); SARS COV2 PCR INHOUSE NEGATIVE (Negative)
[2021-04-04 20:00] VITALS: BP 115/68; PULSE 119; RESP 18; TEMP 36.7; O2SAT 97
[2021-04-04 20:08] LABS: Alanine Aminotransferase 21 U/L (0-31); Albumin Level 4.1 g/dL (3.5-5.0); Alkaline Phosphatase 76 U/L (39-117); Anion Gap 18 (12-20); Aspartate Amino Transferase 26 U/L (5-31); Bilirubin Direct < 0.2 mg/dL (0.0-0.5); Bilirubin Total 0.2 mg/dL (0.0-1.0); Blood Urea Nitrogen 10 mg/dL (9-16); Calcium 8.7 mg/dL (8.4-10.2); Carbon Dioxide 25 mmol/L (22-29); Chloride 106 mmol/L (96-108); Creatinine Clr Calc Pharmacy 96.1; Estimated Glomerular Filt Rate > 60; Glucose Random 106 mg/dL (60-115); Magnesium 1.9 mg/dL (1.6-2.6); Potassium 4.1 mmol/L (3.3-5.1); Sodium 145 mmol/L (135-145); Total Protein 7.2 g/dL (6.5-8.0)
[2021-04-04 20:22] LABS: Reflex Lactate? Lactic Acid Added
--- NOTE | 2021-04-04 20:45 | PC.NURSE ---
PT VOMITED ON FLOOR. STATES SHE WANTS TO BE ADMITTED B/C SHE CAN'T KEEP ANYTHING DOWN AT HOME INCLUDING HER ROUTINE MEDS.
--- NOTE | 2021-04-04 21:26 | PHA.MEDREC ---
Pharmacy Consult ? Medication Reconciliation Pharmacy has completed the medication reconciliation. Of note, the patient takes prednisone 20mg daily and was told to increase to 40mg due to PNA infection. Also, patient took morning meds but did vomit earlier
[2021-04-04] MEDS: cefTRIAXone sodium 1 GM in 0.9 % Sodium Chloride 50 ML IV (22:16)
[2021-04-04] MEDS: Azithromycin 500 MG in 0.9 % Sodium Chloride 250 ML 125 MG IV (22:58)
--- NOTE | 2021-04-04 22:58 | PC.NURSE ---
abx administered outside of one hour window as primary RN for this pt was occupied with emergent situation with another pt.
[2021-04-04 22:59] VITALS: BP 118/43; PULSE 108; RESP 16; O2SAT 97
--- NOTE | 2021-04-04 23:12 | MHC.CM.PN ---
CM met with admitted patient, with bed assignment pending. IMM reviewed and signed per protocol 04/04/21@[id number]. CM sat with pt for extended time, as pt was very upset when CM arrived, pt crying and is very fearful. Pt is on palliative care with [facility] for intersitial lung disease. Pt usually on 6L home oxygen. Pt states she cannot ambulate or do anything without it. Pt was able to calm after speaking with CM. Pt on RA at 94-95% SaO2. Spoke about end of life care, her and her daughter Pilar, who was born still 9 years ago. Pt was encouraged to live her best life. 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 Pt lives with her and dog. D/C plan is home with continuation of palliative care through [facility] care with a transition to hospice when needed. [facility] is aware of pt hospitalization. Transportation provided by . CM to follow for d/c needs
[2021-04-04 23:48] LABS: Reflex Lactate? 2 Y
[2021-04-05] VITALS (13 sets, daily range): BP systolic 121–161; BP diastolic 60–82; PULSE 86–118; RESP 18–30; TEMP 36.2–37.1; O2SAT 94–100; BMI 24.9
--- NOTE | 2021-04-05 00:34 | PC.NURSE ---
REPORT GIVEN TO RN ON FLOOR, PT READY FOR TRANSPORT. NO VOMITING WITNESSED SINCE 9PM.
[2021-04-05] MEDS: Lactated Ringers 1,000 ML 100 ML IVCONT ×2 (00:45→09:56)
[2021-04-05 00:59] LABS: ~Lactic Acid-LAB USE ONLY 9.2 mmol/L (0.5-2.0)
[2021-04-05] MEDS: iohexoL 350 MG/ML 100 ML INFUS..BTL 85 ML IV (01:29)
[2021-04-05] MEDS: HYDROmorphone HCl 0.5 MG/0.5 ML SYRINGE IVPUSH ×3 (02:14→19:27)
[2021-04-05] MEDS: ondansetron HCL 4 MG/2 ML VIAL IVPUSH ×2 (06:20→19:28)
--- NOTE | 2021-04-05 06:47 | P.HPHOSP_ITS ---
History of Present Illness Date of Service: 04/04/21 Chief Complaint: Vomiting, shortness of breath, chest pain This is a 45-year-old female with past medical history of chronic respiratory failure with hypoxia on 6 L of oxygen secondary to interstitial lung disease/pulmonary fibrosis, PTSD/anxiety who presents to the hospital with complaints of shortness of breath, cough, as well as chest pain and vomiting. P kira reports that her symptoms started about a week ago, she is currently on palliative care, her home care start her on doxycycline on Sunday but patient started vomiting today and has not been able to take any of her antibiotics and as well as her pain medications for her chest pain. Patient reports the chest pain is with breathing as her chronic pain secondary to her pulmonary fibrosis, has not changed, the pain is all over her chest and is not radiating, 06/05, she usually takes Dilaudid 2 mg p.o. every 46 hours but has not been able to take any medications today due to the vomiting. Denies any abdominal pain no diarrhea, no urinary symptoms and no lower extremity edema. She is on chronic Bactrim for her history of interstitial lung disease prednisone. On arrival to the ED patient's vital significant for a temperature of 98.8?, heart rate of 117, respiratory rate of 26, blood pressure 1 7/97, satting 100% on 2 L of oxygen For WBC count of 18 which is higher than her baseline, hemoglobin of 10.6, left shift, pH of 7.34, lactic acid of 2.8, Chest CT shows low lung volumes with symmetric multifocal ground-glass opacities and subpleural reticulation. Aside from a new focus of ground-glass consolidation in the anterior aspect of the right upper lobe indicative of possible superimposed new pneumonia. Given her intolerance to p.o. intake patient will be admitted for further evaluation and management Past medical history as below lung confirm with patient Review of Systems Review of Systems: Yes all other systems are reviewed and are negative [facility] Medical History (Updated 04/05/21 @ 06:54 by Tres Tian MD) Chronic respiratory failure with hypoxia History of interstitial lung disease Pulmonary fibrosis Social History Household Members: Spouse Housing: House Do you presently have visiting nurse or other home services: Yes (palliative care) Alcohol intake: never Patient Tobacco Use Status: Never used Tobacco Smoked in Last 30 Days: No Use of substances other than those prescribed or required for medical reasons: No Have you been hit, kicked, punched, or otherwise hurt by someone within the past year? If so, by whom?: No Do you feel safe in your current relationship?: Yes Is there a partner from a previous relationship who is making you feel unsafe now?: No Are you made to feel afraid or neglected: No Advance Directives: No Advance Directives Information Provided: No Advance Directives Date on File: 01/12/21 Do you have thoughts of harming others: None Do you have a plan to hurt others: No Plan Recently lost weight without trying: Yes How much weight loss: 24-33 pounds Eating poorly because of decreased appetite: No Nutrition screen score: 5 Nutrition Risks: No Nutritional Risk Patient : No : No Poor oral hygiene: No service: No Current occupational status: unemployed and disabled Meds Allergies Allergy/AdvReac Type Severity Reaction Status Date / Time Penicillins [PCN] Allergy Severe HIVES, Verified 04/04/21 16:54 ANGIOEDEMA fentanyl [FENTANYL] Allergy Intermediate UNKNOWN Verified 04/04/21 16:54 garlic [GARLIC] Allergy Unknown ANAPHYLAXIS Verified 04/04/21 16:54 mustard [MUSTARDS] Allergy Unknown ANAPHYLAXIS Verified 04/04/21 16:54 naproxen [NAPROXEN] Allergy Unknown UNKNOWN Verified 04/04/21 16:54 paroxetine [Paxil] Allergy Unknown Unknown Verified 04/04/21 16:54 penicillin V Allergy Unknown Unknown Verified 04/04/21 16:54 aspirin [ASA] AdvReac Intermediate HIVES, LIP Verified 04/04/21 16:54 SWELLING SUN Allergy Severe BLISTERS, Uncoded 01/12/21 00:15 ABD PAIN, DUE TO PORPHYRIA Active Medications: Current Medications Generic Name Dose Route Start Last Admin Trade Name Freq PRN Reason Stop Dose Admin Acetaminophen 650 mg 04/04/21 22:59 Acetaminophen 325 Mg Tablet PO Q6H PRN Pain, Mild (Pain Scale 1-3) Clonazepam 1 mg 04/04/21 22:59 04/05/21 02:18 Clonazepam 1 Mg Tablet PO Not Given TID GOLDY Cyclobenzaprine HCl 10 mg 04/04/21 22:59 04/05/21 02:18 Cyclobenzaprine Hcl 10 Mg Tablet PO Not Given TID [facility] Docusate Sodium 100 mg 04/04/21 22:59 Docusate Sodium 100 Mg Capsule PO DAILY PRN Constipation Enoxaparin Sodium 40 mg 04/05/21 00:00 04/05/21 02:18 Enoxaparin Sodium 40 Mg/0.4 Ml Syringe SUBCUT Not Given Q24H [facility] Fluoxetine HCl 60 mg 04/05/21 09:00 Fluoxetine Hcl 20 Mg Capsule PO DAILY [facility] Hydromorphone HCl 0.5 mg 04/04/21 22:59 04/05/21 06:15 Hydromorphone Hcl 0.5 Mg/0.5 Ml Syringe IVPUSH 0.5 mg Q4H PRN Administration Pain, Severe (Pain Scale 7-10) Protocol Hydroxyzine HCl 25 mg 04/04/21 22:59 Hydroxyzine Hcl 25 Mg Tablet PO BEDTIME PRN anxiety Lactated Ringer's 1,000 mls @ 100 mls/hr 04/04/21 23:00 04/05/21 00:45 Lr IVCONT 100 mls/hr .Q10H [facility] Administration Ceftriaxone Sodium 1 gm/ 50 mls @ 100 mls/hr 04/05/21 22:00 Sodium Chloride IV Q24H GOLDY Azithromycin 500 mg/ Sodium 250 mls @ 125 mls/hr 04/05/21 22:00 Chloride IV Q24H [facility] Metoprolol Succinate 25 mg 04/05/21 09:00 Metoprolol Succinate Er 25 Mg Tab.Er.24h PO DAILY [facility] Protocol Olanzapine 10 mg 04/05/21 09:00 Olanzapine 10 Mg Tablet PO DAILY [facility] Ondansetron HCl 4 mg 04/04/21 22:59 04/05/21 06:20 Ondansetron Hcl 4 Mg/2 Ml Vial IVPUSH 4 mg Q8H PRN Administration Nausea and Vomiting Pharmacy Consult 1 each 04/04/21 20:58 Consult Rx Perform Med Rec MISCELLANE ONCE PRN Consult order Prednisone 20 mg 04/05/21 09:00 Prednisone 20 Mg Tablet PO DAILY [facility] Sodium Chloride 3 ml 04/05/21 00:00 04/05/21 02:18 0.9 % Sodium Chloride Flush 3 Ml Syringe IVFLUSH Not Given QSHIFT [facility] Trazodone HCl 50 mg 04/04/21 22:59 04/05/21 02:18 Trazodone Hcl 50 Mg Tablet PO Not Given BEDTIME [facility] Trimethoprim/Sulfamethoxazole 1 tab 04/06/21 09:00 Sulfamethox/Trimeth 800/160 1 Tab Tablet PO [id number] [facility] Home Medications Medication Instructions Recorded Confirmed Last Taken Type clonazepam 1 mg tablet 1 tab PO TID 01/12/21 04/04/21 04/04/21 History cyclobenzaprine 10 mg tablet 1 tab PO TID 01/12/21 04/04/21 04/04/21 History fluoxetine 20 mg capsule 3 cap PO QAM 01/12/21 04/04/21 04/04/21 History hydroxyzine HCl 25 mg tablet 1 tab PO BEDTIME PRN 01/12/21 04/04/21 04/03/21 History metoprolol succinate 25 mg 1 tab PO DAILY 01/12/21 04/04/21 04/04/21 History tablet,extended release 24 hr prednisone 20 mg tablet 1 tab PO DAILY 01/12/21 04/04/21 04/04/21 History sulfamethoxazole 800 1 tab PO MOWEFR 01/12/21 04/04/21 04/04/21 History mg-trimethoprim 160 mg tablet trazodone 50 mg tablet 1 tab PO BEDTIME 01/12/21 04/04/21 04/03/21 History doxycycline hyclate 100 mg capsule 1 cap PO BID 04/04/21 04/04/21 04/04/21 History hydromorphone 2 mg tablet 1 tab PO QID 04/04/21 04/04/21 04/04/21 History olanzapine 10 mg tablet 1 tab PO DAILY 04/04/21 04/04/21 04/04/21 History Physical Exam Vital Signs and Narrative: Vital Signs: Last Vital Signs Temp 97.5 F 04/05/21 02:26 Pulse 108 H 04/05/21 02:26 Resp 18 04/05/21 02:26 BP 129/60 04/05/21 02:26 Pulse Ox 98 04/05/21 02:26 Oxygen Flow Rate 2 04/04/21 16:54 Body Mass Index 24.9 Const: General: cooperative and no acute distress Orientation/con sciousness: patient oriented x3 Eyes: General: appearance normal, both eyes and all related structures Resp: Effort & Inspection: normal respiratory effort and able to speak in com plete sentences Auscultation: rhonchi Cardio: Rate: regular rate Rhythm: regular rhythm GI: Palpation (GI): Soft to palpation Auscultation: normal bowel sounds Skin: General skin exam: no rashes or lesions noted Neuro: General: patient oriented x3 Cognition (Neuro): normal cognition Extrem: General: Yes normal to inspection and Yes no pedal edema Results Labs CBC and Chem 7: 04/04/21 18:16 04/04/21 19:38 Labs: Laboratory Results - last 24 hr 04/04/21 04/04/21 04/04/21 18:16 18:16 18:16 MCV 84.7 MCH 26.1 L MCHC 30.8 L RDW 15.7 Plt Count 480 H MPV 8.0 L Immature Gran % (Auto) 2.6 H Neut % (Auto) 57.8 Lymph % (Auto) 31.3 [place] % (Auto) 7.7 Eos % (Auto) 0.4 Baso % (Auto) 0.2 Lymph # (Auto) 5.6 H [place] # (Auto) 1.4 H Eos # (Auto) 0.1 Baso # (Auto) 0.0 Abs Immat Gran (auto) 0.46 H Absolute Neuts (auto) 10.4 H Absolute Nucleated RBC 0.000 Nucleated RBC % (auto) 0.0 Smear Tech's Comments VERIFIED VBG pH VBG pCO2 VBG pO2 VBG HCO3 VBG O2 Saturation VBG Base Excess Anion Gap Estim Creat Clear Calc Estimated GFR Random Glucose Lactic Acid 2.8 H* Lactic Acid Fup @ 2Hr Lactic Acid Fup @ 4Hr Calcium Magnesium Total Bilirubin Direct Bilirubin AST ALT Alkaline Phosphatase Troponin I High Sens < 3.5 B-Natriuretic Peptide Total Protein Albumin Coronavirus (PCR) Influenza Type A (PCR) Influenza Type B (PCR) RSV RNA Qual (PCR) 04/04/21 04/04/21 04/04/21 18:16 18:17 18:33 MCV MCH MCHC RDW Plt Count MPV Immature Gran % (Auto) Neut % (Auto) Lymph % (Auto) [place] % (Auto) Eos % (Auto) Baso % (Auto) Lymph # (Auto) [place] # (Auto) Eos # (Auto) Baso # (Auto) Abs Immat Gran (auto) Absolute Neuts (auto) Absolute Nucleated RBC Nucleated RBC % (auto) Smear Tech's Comments VBG pH 7.34 VBG pCO2 53 VBG pO2 81 VBG HCO3 29 H VBG O2 Saturation 93.0 VBG Base Excess 2.7 Anion Gap Estim Creat Clear Calc Estimated GFR Random Glucose Lactic Acid Lactic Acid Fup @ 2Hr Lactic Acid Fup @ 4Hr Calcium Magnesium Total Bilirubin Direct Bilirubin AST ALT Alkaline Phosphatase Troponin I High Sens B-Natriuretic Peptide < 10 Total Protein Albumin Coronavirus (PCR) NEGATIVE Influenza Type A (PCR) NEGATIVE Influenza Type B (PCR) NEGATIVE RSV RNA Qual (PCR) NEGATIVE 04/04/21 04/04/21 04/05/21 19:38 21:42 00:17 MCV MCH MCHC RDW Plt Count MPV Immature Gran % (Auto) Neut % (Auto) Lymph % (Auto) [place] % (Auto) Eos % (Auto) Baso % (Auto) Lymph # (Auto) [place] # (Auto) Eos # (Auto) Baso # (Auto) Abs Immat Gran (auto) Absolute Neuts (auto) Absolute Nucleated RBC Nucleated RBC % (auto) Smear Tech's Comments VBG pH VBG pCO2 VBG pO2 VBG HCO3 VBG O2 Saturation VBG Base Excess Anion Gap 18 Estim Creat Clear Calc 96.1 Estimated GFR > 60 Random Glucose 106 Lactic Acid Lactic Acid Fup @ 2Hr 6.0 H* Lactic Acid Fup @ 4Hr 9.2 H* Calcium 8.7 D Magnesium 1.9 Total Bilirubin 0.2 Direct Bilirubin < 0.2 AST 26 ALT 21 Alkaline Phosphatase 76 Troponin I High Sens B-Natriuretic Peptide Total Protein 7.2 Albumin 4.1 Coronavirus (PCR) Influenza Type A (PCR) Influenza Type B (PCR) RSV RNA Qual (PCR) Imaging Radiologist's Impressions: Impressions Chest X-Ray 04/04/21 17:09 IMPRESSION: Stable examination demonstrating no acute pulmonary pathology. Chest CT 04/04/21 18:15 IMPRESSION: Low lung volumes with symmetric multifocal groundglass opacities and subpleural reticulation. Aside from a new focus of groundglass consolidation in the anterior aspect of the right upper lobe, this findings are not appreciably changed as compared to 01/12/2021. As previously noted, this may correspond to nonspecific interstitial pneumonia. The new groundglass attenuation in the right upper lobe may correspond to progression of the chronic process or a new, small focus of superimposed pneumonia. Abdomen/Pelvis CT 04/05/21 01:25 IMPRESSION: Redemonstration of bibasilar lung opacities. No acute findings in the abdomen or pelvis. Moderate colonic stool burden. Uterine fibroids. Assessment and Plan (1) Chronic respiratory failure with hypoxia: Status: Acute (2) Pneumonia: Status: Acute (3) Pulmonary fibrosis: Status: Acute This is a 45-year-old female with past medical history of pulmonary fibros is/interstitial lung disease who is currently on palliative care and possibly going to hospice although she has not made a decision yet presents with shortness of breath, cough, and intractable vomiting found to have acute pneumonia # community-acquired pneumonia - as seen on chest CT - patient afebrile, has leukocytosis above her baseline although on prednisone - given patient's intolerance to p.o. will start her on ceftriaxone and azithromycin - follow cultures - COVID-19 negative # intractable vomiting - abdominal CT negative for any acute abnormality - supportive measures, Zofran p.r.n. # interstitial lung disease, pulmonary fibrosis - advanced - patient was evaluated for hospice but currently is in palliative care and has not decided on hospice but plans on going on hospice soon - to Solu-Medrol given her inability to tolerate p.o. # PTSD - continue home medications DVT prophylaxis: Quality Stroke Does the patient have a stroke diagnosis?: No VTE Prior VTE?: No VTE Risk Level:: Medical - moderate - high VTE Device Contraindication: Treatment Not Tolerated VTE Drug Contraindication: N/A - Med Ordered
[2021-04-05 07:27] LABS: MANUAL DIFF FLAG NO
[2021-04-05] MEDS: methylPREDNISolone Sod Succ 40 MG/ML VIAL IVPUSH ×2 (07:43→19:28)
[2021-04-05] MEDS: 0.9 % Sodium Chloride Flush 3 ML SYRINGE IVFLUSH ×2 (07:43→19:28)
[2021-04-05 07:45] LABS: Basophils Percent Auto 0.1 % (0-2); Hematocrit 34.8 % (37-47); Hemoglobin 10.4 g/dl (12.0-16.0); Imm Gran Abs Auto 0.29 X10*3/uL (0.00-0.03); Imm Gran Pct Auto 1.8 % (0.0-0.4); Mean Corpuscular HGB Conc 29.9 g/dl (31.0-35.0); Mean Corpuscular Hemoglobin 25.5 pg (27.0-33.0); Mean Corpuscular Volume 85.3 fL (80-98); Mean Platelet Volume 8.7 fL (9.4-12.3); Monocytes Absolute Auto 0.5 X10*3/uL (0.1-1.2); Monocytes Percent Auto 3.1 % (2-11); Neutrophils Absolute Auto 14.5 X10*3/uL (2.0-8.3); Platelet Count 451 X10*3/uL (160-400); Red Blood Count 4.08 X10*6/uL (4.20-5.50); Red Cell Distribution Width 15.8 % (11.0-16.0); White Blood Count 16.3 X10*3/uL (4.8-10.8)
[2021-04-05] MEDS: Albuterol/Iprat 2.5/0.5MG 3 ML AMPUL.NEB INHALE (08:05)
[2021-04-05 08:47] LABS: Anion Gap 17 (12-20); Blood Urea Nitrogen 5 mg/dL (9-16); Calcium 8.6 mg/dL (8.4-10.2); Carbon Dioxide 23 mmol/L (22-29); Chloride 106 mmol/L (96-108); Estimated Glomerular Filt Rate > 60; Glucose Random 118 mg/dL (60-115); Sodium 142 mmol/L (135-145)
[2021-04-05 08:54] LABS: Lactic Acid 6.1 mmol/L (0.5-2.0)
[2021-04-05] MEDS: oxyCODONE HCl ER 10 MG TAB.ER.12H PO (09:04)
[2021-04-05] MEDS: clonazePAM 1 MG TABLET PO ×3 (09:07→21:22)
[2021-04-05] MEDS: FLUoxetine HCl 20 MG CAPSULE 60 MG PO (09:07)
[2021-04-05] MEDS: Cyclobenzaprine HCl 10 MG TABLET PO ×3 (09:07→21:22)
[2021-04-05] MEDS: OLANZapine 10 MG TABLET PO (09:09)
[2021-04-05] MEDS: Metoprolol Succinate ER 25 MG TAB.ER.24H PO (09:09)
[2021-04-05] MEDS: HYDROmorphone HCl 0.5 MG/0.5 ML SYRINGE 1 MG IVPUSH ×2 (10:01→14:01)
[2021-04-05 10:17] LABS: Reflex Lactate? Lactic Acid Added
--- NOTE | 2021-04-05 10:45 | MHC.CLN ---
RE: CONSULT PT WITH POOR PO AND INTRACTABLE VOMITING CAREER CONSULTANT PT'S PREVIOUS WT HX REVEALS 134# (03/05/20) PT WITH 8% WT GAIN X 1 YEAR AND NO S/S MALNUTRITION. PT IS CURRENTLY PALLIATIVE CARE AT HOME DIET RX: F/L-APPROPRIATE WILL ADD ENSURE TO DIET ORDER TO INCREASE KCALS R/T POOR PO MONITOR PO INTAKE CLOSELY SEE ALSO CLINICAL NUTRITION ASSESSMENT
[2021-04-05 10:52] LABS: ~Lactic Acid-LAB USE ONLY 10.7 mmol/L (0.5-2.0)
--- NOTE | 2021-04-05 10:58 | HO.PM.IMPN ---
Subjective Subjective Date of Service: 04/05/21 Interval History: Complaining of chest pain with deep breathing, denies fever chills, no other acute issues overnight, denies abdominal pain. Review of Systems General no headache, no dizziness no fever chills. CVS chest pain with breathing, no palpitation. Gastrointestinal no nausea,no vomiting, no abdominal pain Skin no rash Physical Exam Vital Signs: Vital Signs: Last Vital Signs Temp 97.6 F 04/05/21 08:00 Pulse 86 04/05/21 08:08 Resp 20 04/05/21 08:00 BP 121/61 04/05/21 09:09 Pulse Ox 100 04/05/21 08:00 Oxygen Flow Rate 2 04/04/21 16:54 Body Mass Index 24.9 General mild acute distress due to pain. Neck supple no JVD. CVS regular rate rhythm, Respiratory lungs coarse breath sounds, no respiratory distress, no wheeze, no rhonchi, no use of accessory muscles Gastrointestinal abdomen soft, nontender, bowel sounds audible, no no guarding , no rigidity. Extremities no edema. Neuro nonfocal ,speech clear. Skin no rash Objective Data Current Medications Generic Name Dose Route Start Last Admin Trade Name Freq PRN Reason Stop Dose Admin Acetaminophen 650 mg 04/04/21 22:59 Acetaminophen 325 Mg Tablet PO Q6H PRN Pain, Mild (Pain Scale 1-3) Albuterol/Ipratropium 3 ml 04/05/21 06:50 04/05/21 08:05 Albuterol/Iprat 2.5/0.5mg 3 Ml Ampul.Neb INHALE 3 ml Q4H PRN Administration Shortness of Breath/Wheezing Clonazepam 1 mg 04/04/21 22:59 04/05/21 09:07 Clonazepam 1 Mg Tablet PO 1 mg TID GOLDY Administration Cyclobenzaprine HCl 10 mg 04/04/21 22:59 04/05/21 09:07 Cyclobenzaprine Hcl 10 Mg Tablet PO 10 mg TID GOLDY Administration Docusate Sodium 100 mg 04/04/21 22:59 Docusate Sodium 100 Mg Capsule PO DAILY PRN Constipation Docusate Sodium 100 mg 04/05/21 21:00 Docusate Sodium 100 Mg Capsule PO BID GOLDY Enoxaparin Sodium 40 mg 04/05/21 00:00 04/05/21 02:18 Enoxaparin Sodium 40 Mg/0.4 Ml Syringe SUBCUT Not Given Q24H GOLDY Fluoxetine HCl 60 mg 04/05/21 09:00 04/05/21 09:07 Fluoxetine Hcl 20 Mg Capsule PO 60 mg DAILY GOLDY Administration Hydromorphone HCl 1 mg 04/05/21 08:54 04/05/21 10:01 Hydromorphone Hcl 0.5 Mg/0.5 Ml Syringe IVPUSH 1 mg Q4H PRN Administration Pain, Severe (Pain Scale 7-10) Protocol Hydroxyzine HCl 25 mg 04/04/21 22:59 Hydroxyzine Hcl 25 Mg Tablet PO BEDTIME PRN anxiety Lactated Ringer's 1,000 mls @ 125 mls/hr 04/04/21 23:00 04/05/21 09:56 Lr IVCONT 100 mls/hr .Q8H GOLDY Administration Ceftriaxone Sodium 1 gm/ 50 mls @ 100 mls/hr 04/05/21 22:00 Sodium Chloride IV Q24H GOLDY Azithromycin 500 mg/ Sodium 250 mls @ 125 mls/hr 04/05/21 22:00 Chloride IV Q24H GOLDY Lactulose 10 gm 04/05/21 10:55 Lactulose 20 Gm/30 Ml Solution PO 04/05/21 10:56 ONCE ONE Methylprednisolone Sodium Succinate 40 mg 04/05/21 07:00 04/05/21 07:43 Methylprednisolone Sod Succ 40 Mg/Ml Vial IVPUSH 40 mg Q12H GOLDY Administration Metoprolol Succinate 25 mg 04/05/21 09:00 04/05/21 09:09 Metoprolol Succinate Er 25 Mg Tab.Er.24h PO 25 mg DAILY GOLDY Administration Protocol Olanzapine 10 mg 04/05/21 09:00 04/05/21 09:09 Olanzapine 10 Mg Tablet PO 10 mg DAILY GOLDY Administration Ondansetron HCl 4 mg 04/04/21 22:59 04/05/21 06:20 Ondansetron Hcl 4 Mg/2 Ml Vial IVPUSH 4 mg Q8H PRN Administration Nausea and Vomiting Oxycodone HCl 10 mg 04/05/21 09:00 04/05/21 09:04 Oxycodone Hcl Er 10 Mg Tab.Er.12h PO 10 mg BID GOLDY Administration Pharmacy Consult 1 each 04/04/21 20:58 Consult Rx Perform Med Rec MISCELLANE ONCE PRN Consult order Sodium Chloride 3 ml 04/05/21 00:00 04/05/21 07:43 0.9 % Sodium Chloride Flush 3 Ml Syringe IVFLUSH 3 ml QSHIFT [facility] Administration Trazodone HCl 50 mg 04/04/21 22:59 04/05/21 02:18 Trazodone Hcl 50 Mg Tablet PO Not Given BEDTIME [facility] Trimethoprim/Sulfamethoxazole 1 tab 04/06/21 09:00 Sulfamethox/Trimeth 800/160 1 Tab Tablet PO [id number] [facility] Labs CBC & Chem 7: 04/05/21 06:08 04/05/21 08:11 Labs: Laboratory Results - last 24 hr 04/04/21 04/04/21 04/04/21 18:16 18:16 18:16 MCV 84.7 MCH 26.1 L MCHC 30.8 L RDW 15.7 Plt Count 480 H MPV 8.0 L Immature Gran % (Auto) 2.6 H Neut % (Auto) 57.8 Lymph % (Auto) 31.3 Wirt % (Auto) 7.7 Eos % (Auto) 0.4 Baso % (Auto) 0.2 Lymph # (Auto) 5.6 H Wirt # (Auto) 1.4 H Eos # (Auto) 0.1 Baso # (Auto) 0.0 Abs Immat Gran (auto) 0.46 H Absolute Neuts (auto) 10.4 H Absolute Nucleated RBC 0.000 Nucleated RBC % (auto) 0.0 Smear Tech's Comments VERIFIED VBG pH VBG pCO2 VBG pO2 VBG HCO3 VBG O2 Saturation VBG Base Excess Anion Gap Estim Creat Clear Calc Estimated GFR Random Glucose Lactic Acid 2.8 H* Lactic Acid Fup @ 2Hr Lactic Acid Fup @ 4Hr Calcium Magnesium Total Bilirubin Direct Bilirubin AST ALT Alkaline Phosphatase Troponin I High Sens < 3.5 B-Natriuretic Peptide Total Protein Albumin Coronavirus (PCR) Influenza Type A (PCR) Influenza Type B (PCR) RSV RNA Qual (PCR) 04/04/21 04/04/21 04/04/21 18:16 18:17 18:33 MCV MCH MCHC RDW Plt Count MPV Immature Gran % (Auto) Neut % (Auto) Lymph % (Auto) Wirt % (Auto) Eos % (Auto) Baso % (Auto) Lymph # (Auto) Wirt # (Auto) Eos # (Auto) Baso # (Auto) Abs Immat Gran (auto) Absolute Neuts (auto) Absolute Nucleated RBC Nucleated RBC % (auto) Smear Tech's Comments VBG pH 7.34 VBG pCO2 53 VBG pO2 81 VBG HCO3 29 H VBG O2 Saturation 93.0 VBG Base Excess 2.7 Anion Gap Estim Creat Clear Calc Estimated GFR Random Glucose Lactic Acid Lactic Acid Fup @ 2Hr Lactic Acid Fup @ 4Hr Calcium Magnesium Total Bilirubin Direct Bilirubin AST ALT Alkaline Phosphatase Troponin I High Sens B-Natriuretic Peptide < 10 Total Protein Albumin Coronavirus (PCR) NEGATIVE Influenza Type A (PCR) NEGATIVE Influenza Type B (PCR) NEGATIVE RSV RNA Qual (PCR) NEGATIVE 04/04/21 04/04/21 04/05/21 19:38 21:42 00:17 MCV MCH MCHC RDW Plt Count MPV Immature Gran % (Auto) Neut % (Auto) Lymph % (Auto) Wirt % (Auto) Eos % (Auto) Baso % (Auto) Lymph # (Auto) Wirt # (Auto) Eos # (Auto) Baso # (Auto) Abs Immat Gran (auto) Absolute Neuts (auto) Absolute Nucleated RBC Nucleated RBC % (auto) Smear Tech's Comments VBG pH VBG pCO2 VBG pO2 VBG HCO3 VBG O2 Saturation VBG Base Excess Anion Gap 18 Estim Creat Clear Calc 96.1 Estimated GFR > 60 Random Glucose 106 Lactic Acid Lactic Acid Fup @ 2Hr 6.0 H* Lactic Acid Fup @ 4Hr 9.2 H* Calcium 8.7 D Magnesium 1.9 Total Bilirubin 0.2 Direct Bilirubin < 0.2 AST 26 ALT 21 Alkaline Phosphatase 76 Troponin I High Sens B-Natriuretic Peptide Total Protein 7.2 Albumin 4.1 Coronavirus (PCR) Influenza Type A (PCR) Influenza Type B (PCR) RSV RNA Qual (PCR) 04/05/21 04/05/21 04/05/21 06:08 07:47 08:11 MCV 85.3 MCH 25.5 L MCHC 29.9 L RDW 15.8 Plt Count 451 H MPV 8.7 L Immature Gran % (Auto) 1.8 H Neut % (Auto) 89.0 H Lymph % (Auto) 6.0 L Wirt % (Auto) 3.1 Eos % (Auto) 0.0 Baso % (Auto) 0.1 Lymph # (Auto) 1.0 L Wirt # (Auto) 0.5 Eos # (Auto) 0.0 Baso # (Auto) 0.0 Abs Immat Gran (auto) 0.29 H Absolute Neuts (auto) 14.5 H Absolute Nucleated RBC 0.000 Nucleated RBC % (auto) 0.0 Smear Tech's Comments VBG pH VBG pCO2 VBG pO2 VBG HCO3 VBG O2 Saturation VBG Base Excess Anion Gap 17 Estim Creat Clear Calc 102.0 Estimated GFR > 60 Random Glucose 118 H Lactic Acid 6.1 H* Lactic Acid Fup @ 2Hr Lactic Acid Fup @ 4Hr Calcium 8.6 Magnesium Total Bilirubin Direct Bilirubin AST ALT Alkaline Phosphatase Troponin I High Sens B-Natriuretic Peptide Total Protein Albumin Coronavirus (PCR) Influenza Type A (PCR) Influenza Type B (PCR) RSV RNA Qual (PCR) 04/05/21 10:28 MCV MCH MCHC RDW Plt Count MPV Immature Gran % (Auto) Neut % (Auto) Lymph % (Auto) Wirt % (Auto) Eos % (Auto) Baso % (Auto) Lymph # (Auto) Wirt # (Auto) Eos # (Auto) Baso # (Auto) Abs Immat Gran (auto) Absolute Neuts (auto) Absolute Nucleated RBC Nucleated RBC % (auto) Smear Tech's Comments VBG pH VBG pCO2 VBG pO2 VBG HCO3 VBG O2 Saturation VBG Base Excess Anion Gap Estim Creat Clear Calc Estimated GFR Random Glucose Lactic Acid Lactic Acid Fup @ 2Hr 10.7 H* Lactic Acid Fup @ 4Hr Calcium Magnesium Total Bilirubin Direct Bilirubin AST ALT Alkaline Phosphatase Troponin I High Sens B-Natriuretic Peptide Total Protein Albumin Coronavirus (PCR) Influenza Type A (PCR) Influenza Type B (PCR) RSV RNA Qual (PCR) Assessment and Plan (1) History of interstitial lung disease: Status: Acute (2) Pulmonary fibrosis: Status: Acute (3) Chronic respiratory failure with hypoxia: Status: Acute (4) Pneumonia: Status: Acute (5) Intractable pain: Status: Acute (6) Chest pain: Status: Acute Assessment and Plan: 45-year-old female with past medical history of pulmonary fibrosis/interstitial lung disease who is currently on palliative care and possibly going to hospice although she has not made a decision yet presents with shortness of breath, cough, and intractable vomiting found to have acute pneumonia # community-acquired pneumonia patient afebrile, has leukocytosis above her baseline although on prednisone, continue IV ceftriaxone and azithromycin day 2 follow cultures COVID-19 negative # chest pain with deep breathing with underlying history of interstitial lung disease/pulmonary fibrosis No acute coronary syndrome, EKG with no acute ischemia, normal troponin, will treat with IV Dilaudid and start patient on OxyContin Continue supportive care with updraft treatment cough medication and change by mouth prednisone to IV Solu Medrol Will add stool softness due to constipation and being on high-dose narcotics # lactic acidosis likely due to nebulizer treatment, normal renal function, normal CT abdomen, continue IV fluid times 24 hours # intractable vomiting - no further bout of vomiting, feel nauseous abdominal CT negative for any acute abnormality supportive measures, Zofran p.r.n. will start full liquid diet # chronic respiratory failure on 6 L of home O2 due to interstitial lung disease, pulmonary fibrosis Continue O2 support steroids and updraft treatment, patient under palliative care at home # PTSD - continue home medications DVT prophylaxis: On Lovenox Quality Stroke Does the patient have a stroke diagnosis?: No VTE Prior VTE?: No VTE Risk Level:: Medical - moderate - high VTE Device Contraindication: Treatment Not Tolerated VTE Drug Contraindication: N/A - Med Ordered
[2021-04-05] MEDS: Lactulose 20 GM/30 ML SOLUTION 10 GM PO (11:15)
[2021-04-05 12:14] LABS: ABG Base Excess -8.3 mmol/L; ABG HCO3 17 mmol/L (22-26); ABG pCO2 33 mmHg (32-45); ABG pO2 146 mmHg (83-108)
[2021-04-05 12:15] LABS: ABG Refer to POC result
[2021-04-05 12:31] LABS: Reflex Lactate? 2 Y
[2021-04-05] MEDS: LORazepam 2 MG/ML VIAL 0.5 MG IVPUSH (13:05)
[2021-04-05] MEDS: Acetaminophen 325 MG TABLET 650 MG PO (13:05)
[2021-04-05 13:17] LABS: Glucose, Whole Blood 211 mg/dL (60-115)
[2021-04-05] MEDS: 0.9 % Sodium Chloride 1,000 ML 500 ML IVCONT (13:24)
--- NOTE | 2021-04-05 13:30 | P.EN_ITS ---
Event Note Date of Service: 04/06/21 Event Note: Patient had a witnessed seizure noted to have generalized tonic cl onic seizure On examination Post seizure patient awake alert Noted to have tongue biting injury After seizure patient awake alert provided history that she is having intermittent seizures, not taking seizure medications since she is under hospice, patient previously has been on Depakote as well as phenytoin but stopped both medications due to side effect Will start patient on IV Keppra, obtain old records from [facility], take seizure precaution, obtain neuro consult, continue home dose of Klonopin. Lactic acidosis lactic acid bumped to 10.7, ABG obtained that showed ph of 7.3 and hco 17,pco2 33, normal renal function, blood sugar 211 Acidosis likely related to seizure Continue anxiolytics, started seizure medication, continue IV fluid repeat lactic acid 7.9
[2021-04-05 13:46] LABS: ~Lactic Acid-LAB USE ONLY 7.9 mmol/L (0.5-2.0)
[2021-04-05] MEDS: levETIRAcetam in NaCl (iso-os) 1,000 MG/100 ML PIGGYBACK 400 MG IV ×2 (13:46→21:16)
[2021-04-05] MEDS: HYDROmorphone HCl 0.5 MG/0.5 ML SYRINGE 1.5 MG IVPUSH ×2 (17:07→21:28)
--- NOTE | 2021-04-05 17:46 | PC.NURSE ---
Addendum entered by Rebecca Caruso RN 04/05/21 17:52: pt has no documentation of sz, however she mention they began after she got COVID-19 in 2019; she reported having one at home 3x weeks ago. Original Note: Tonic-Clonic sz At 1301 patient was conversing with me after which I heard a pause and realize that she began having full body stiffness and tremors and hard bite down. Pt was turned on her side and assistance was called in furthering a [employer]. Her vitals, Blood sugar was taken and Sz precautions were implemented. MD and [facility]ARM [facility] team came to see patient for further evaluation and assessment. Pt came to, was AxO and vitals remain stable and was given a dose of Keppra along with a consultation from Neuro.
--- NOTE | 2021-04-05 18:08 | PM.NEUROCN ---
History of Present Illness Data of Consult Service Date: 04/05/21 Primary Care Provider: Wagner Devries MD [facility] Reason for consult: Witnessed seizure This is a 45-year-old woman with pulmonary fibrosis and recent Covid who is on hospice because of her lung condition. 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 In the past she was on Dilantin which she did not tolerate and was switched to Depakote with good control. She was in 5 mg twice a day with no seizure recurrence for many years. When she went on hospice recently the Depakote was stopped and she had a seizure 3 weeks ago and had had another witnessed generalized tonic-clonic seizure today. She is now back to her baseline. In the past she has also taken Keppra without any problems. On this occasion she was given a loading dose of 1 g of Keppra. Review of Systems Review of Systems: General no headache, no dizziness no fever chills. CVS chest pain with breathing, no palpitation. Gastrointestinal no nausea,no vomiting, no abdominal pain Skin no rash Yes all other systems are reviewed and are negative Constitutional: Constitutional: Reports no additional constitutional complaints, Denies body ache(s), Denies chills, Denies fever(s), Denies headache(s) and Denies weakness Eyes: Eyes: Reports no additional eye complaints and Denies change in vision ENT: Reports system reviewed and no additional complaints, except as documented, Denies dizziness, Denies headache(s), Denies nasal congestion, Denies nasal discharge and Denies neck pain Cardiovascular: Cardiovascular: Reports no additional cardiovascular complaints, Reports chest pain, Denies leg edema and Reports dyspnea Respiratory: Respiratory: Reports no additional respiratory complaints, Reports cough and Reports dyspnea Gastrointestinal: Gastrointestinal: Reports no additional gastrointestinal complaints, Denies abdominal pain, Denies diarrhea, Denies nausea and Denies vomiting Musculoskeletal: Musculoskeletal: Reports no additional musculoskeletal complaints, Denies back pain, Denies arthralgias, Denies joint swelling, Denies neck pain, Denies numbness and Denies tingling Integumentary/Breasts: Skin/Breast: Reports system reviewed and no additional complaints, except as docu and Denies rash Neurologic: Reports system reviewed and no additional complaints, except as documented, Denies Abnormal speech present, Denies dizziness, Denies headache(s), Denies numbness, Denies tingling and Denies weakness PMFSH Past Medical History Medical History (Updated 04/05/21 @ 18:11 by Bull Kenney MD) Chronic respiratory failure with hypoxia History of interstitial lung disease Oxygen dependent Pulmonary fibrosis Seizures Social History Social History Household Members: Spouse Housing: House Do you presently have visiting nurse or other home services: Yes (palliative care) Alcohol intake: never Patient Tobacco Use Status: Never used Tobacco Smoked in Last 30 Days: No Use of substances other than those prescribed or required for medical reasons: No Currently Displaying Signs/Symptoms of Drug Intoxication Withdrawal: No Have you been hit, kicked, punched, or otherwise hurt by someone within the past year? If so, by whom?: No Do you feel safe in your current relationship?: Yes Is there a partner from a previous relationship who is making you feel unsafe now?: No Are you made to feel afraid or neglected: No Advance Directives: No Advance Directives Information Provided: No Advance Directives Date on File: 01/12/21 Do you have thoughts of harming others: None Do you have a plan to hurt others: No Plan Recently lost weight without trying: Yes How much weight loss: 24-33 pounds Eating poorly because of decreased appetite: No Nutrition screen score: 5 Nutrition Risks: No Nutritional Risk Patient : No : No Poor oral hygiene: No service: No Current occupational status: unemployed and disabled Meds Allergies Allergy/AdvReac Type Severity Reaction Status Date / Time Penicillins [PCN] Allergy Severe HIVES, Verified 04/04/21 16:54 ANGIOEDEMA fentanyl [FENTANYL] Allergy Intermediate UNKNOWN Verified 04/04/21 16:54 garlic [GARLIC] Allergy Unknown ANAPHYLAXIS Verified 04/04/21 16:54 mustard [MUSTARDS] Allergy Unknown ANAPHYLAXIS Verified 04/04/21 16:54 naproxen [NAPROXEN] Allergy Unknown UNKNOWN Verified 04/04/21 16:54 paroxetine [Paxil] Allergy Unknown Unknown Verified 04/04/21 16:54 penicillin V Allergy Unknown Unknown Verified 04/04/21 16:54 aspirin [ASA] AdvReac Intermediate HIVES, LIP Verified 04/04/21 16:54 SWELLING SUN Allergy Severe BLISTERS, Uncoded 01/12/21 00:15 ABD PAIN, DUE TO PORPHYRIA Active Medications: Current Medications Generic Name Dose Route Start Last Admin Trade Name Basilioq PRN Reason Stop Dose Admin Acetaminophen 650 mg 04/04/21 22:59 04/05/21 13:05 Acetaminophen 325 Mg Tablet PO 650 mg Q6H PRN Administration Pain, Mild (Pain Scale 1-3) Albuterol/Ipratropium 3 ml 04/05/21 06:50 04/05/21 08:05 Albuterol/Iprat 2.5/0.5mg 3 Ml Ampul.Neb INHALE 3 ml Q4H PRN Administration Shortness of Breath/Wheezing Clonazepam 1 mg 04/04/21 22:59 04/05/21 14:25 Clonazepam 1 Mg Tablet PO 1 mg TID GOLDY Administration Cyclobenzaprine HCl 10 mg 04/04/21 22:59 04/05/21 14:24 Cyclobenzaprine Hcl 10 Mg Tablet PO 10 mg TID GOLDY Administration Docusate Sodium 100 mg 04/04/21 22:59 Docusate Sodium 100 Mg Capsule PO DAILY PRN Constipation Docusate Sodium 100 mg 04/05/21 21:00 Docusate Sodium 100 Mg Capsule PO BID GOLDY Enoxaparin Sodium 40 mg 04/05/21 00:00 04/05/21 02:18 Enoxaparin Sodium 40 Mg/0.4 Ml Syringe SUBCUT Not Given Q24H GOLDY Fluoxetine HCl 60 mg 04/05/21 09:00 04/05/21 09:07 Fluoxetine Hcl 20 Mg Capsule PO 60 mg DAILY GOLDY Administration Hydromorphone HCl 1.5 mg 04/05/21 15:21 04/05/21 17:07 Hydromorphone Hcl 0.5 Mg/0.5 Ml Syringe IVPUSH 1.5 mg Q4H PRN Administration Pain, Severe (Pain Scale 7-10) Protocol Hydroxyzine HCl 25 mg 04/04/21 22:59 Hydroxyzine Hcl 25 Mg Tablet PO BEDTIME PRN anxiety Lactated Ringer's 1,000 mls @ 125 mls/hr 04/04/21 23:00 04/05/21 13:24 Lr IVCONT 0 mls/hr .Q8H GOLDY Infusion Ceftriaxone Sodium 1 gm/ 50 mls @ 100 mls/hr 04/05/21 22:00 Sodium Chloride IV Q24H [facility] Azithromycin 500 mg/ Sodium 250 mls @ 125 mls/hr 04/05/21 22:00 Chloride IV Q24H [facility] Methylprednisolone Sodium Succinate 40 mg 04/05/21 07:00 04/05/21 07:43 Methylprednisolone Sod Succ 40 Mg/Ml Vial IVPUSH 40 mg Q12H GOLDY Administration Metoprolol Succinate 25 mg 04/05/21 09:00 04/05/21 09:09 Metoprolol Succinate Er 25 Mg Tab.Er.24h PO 25 mg DAILY GOLDY Administration Protocol Olanzapine 10 mg 04/05/21 09:00 04/05/21 09:09 Olanzapine 10 Mg Tablet PO 10 mg DAILY GOLDY Administration Ondansetron HCl 4 mg 04/04/21 22:59 04/05/21 06:20 Ondansetron Hcl 4 Mg/2 Ml Vial IVPUSH 4 mg Q8H PRN Administration Nausea and Vomiting Oxycodone HCl 10 mg 04/05/21 09:00 04/05/21 09:04 Oxycodone Hcl Er 10 Mg Tab.Er.12h PO 10 mg BID GOLDY Administration Pharmacy Consult 1 each 04/04/21 20:58 Consult Rx Perform Med Rec MISCELLANE ONCE PRN Consult order Sodium Chloride 3 ml 04/05/21 00:00 04/05/21 16:05 0.9 % Sodium Chloride Flush 3 Ml Syringe IVFLUSH Not Given QSHIFT [facility] Trazodone HCl 50 mg 04/04/21 22:59 04/05/21 02:18 Trazodone Hcl 50 Mg Tablet PO Not Given BEDTIME [facility] Trimethoprim/Sulfamethoxazole 1 tab 04/06/21 09:00 Sulfamethox/Trimeth 800/160 1 Tab Tablet PO MoWeFr@0900 [facility] Home Medications Medication Instructions Recorded Confirmed Last Taken Type clonazepam 1 mg tablet 1 tab PO TID 01/12/21 04/04/21 04/04/21 History cyclobenzaprine 10 mg tablet 1 tab PO TID 01/12/21 04/04/21 04/04/21 History fluoxetine 20 mg capsule 3 cap PO QAM 01/12/21 04/04/21 04/04/21 History hydroxyzine HCl 25 mg tablet 1 tab PO BEDTIME PRN 01/12/21 04/04/21 04/03/21 History metoprolol succinate 25 mg 1 tab PO DAILY 01/12/21 04/04/21 04/04/21 History tablet,extended release 24 hr prednisone 20 mg tablet 1 tab PO DAILY 01/12/21 04/04/21 04/04/21 History sulfamethoxazole 800 1 tab PO MOWEFR 01/12/21 04/04/21 04/04/21 History mg-trimethoprim 160 mg tablet trazodone 50 mg tablet 1 tab PO BEDTIME 01/12/21 04/04/21 04/03/21 History doxycycline hyclate 100 mg capsule 1 cap PO BID 04/04/21 04/04/21 04/04/21 History hydromorphone 2 mg tablet 1 tab PO QID 04/04/21 04/04/21 04/04/21 History olanzapine 10 mg tablet 1 tab PO DAILY 04/04/21 04/04/21 04/04/21 History Physical Exam Vital Signs: Vital Signs: Last Vital Signs Temp 98.3 F 04/05/21 15:12 Pulse 108 H 04/05/21 15:12 Resp 24 H 04/05/21 15:12 BP 144/80 H 04/05/21 15:12 Pulse Ox 99 04/05/21 15:12 Oxygen Flow Rate 2 04/04/21 16:54 Body Mass Index 24.9 Const: General: cooperative, no acute distress and anxious Orientation/consciousness: patient oriented x3 Limitations: no limitations HENMT: Head: Yes normal to inspection Ears: hearing grossly normal bilaterally General nose exam: Normal external nose present Face and sinus: Yes normal facial exam Mouth: Normal oral and palatal mucosa present Throat: Yes posterior oropharynx normal Eyes: General: appearance normal, both eyes and all related structures Pupils: Equal, round and reactive pupils present Neck: Neck: Yes normal visual inspection Chest: Chest palpation & inspection: normal inspection of the chest and tenderness (diffuse tenderness anterior chest ) Resp: Other: diminished BS bilaterally Effort & Inspection: normal respiratory effort and able to speak in complete sentences Auscultation: rhonchi Cardio: Rate: regular rate Rhythm: regular rhythm Peripheral pulses: Peripheral pulses 2+ throughout GI: Inspection: Yes normal to inspection Palpation (GI): Soft to palpation and nontender Auscultation: normal bowel sounds Back/Spine/Pelvis: Thoracic/Lumbar Spine: thoracic and lumbar spine normal to inspection Skin: General skin exam: no rashes or lesions noted Neuro: General: patient oriented x3, no focal motor deficits and normal sensation to monofilament Cranial nerves: Yes Equal, round and reactive pupils present Cognition (Neuro): normal cognition Speech: No Abnormal speech present Gait exam (Neuro): Normal gait present Motor exam (neuro): 5/5 motor strength present throughout Deep tendon reflexes (DTR's): Right triceps reflex intensity grade: 1+, Left triceps reflex intensity grade: 1+, Rt Biceps (C5, C6): 1+, Right patellar reflex intensity grade: 1+, Left patellar reflex intensity grade: 1+, Right ankle reflex intensity grade: 1+ and Left ankle reflex intensity grade: 1+ Plantar Reflex Responses: downgoing: bilateral Romberg Test: Negative Pupils: Normal pupillary reactivity/response: bilateral Extrem: General: Yes normal to inspection, Yes no pedal edema and Yes no calf tenderness Results Labs CBC & Chem 7: 04/05/21 06:08 04/05/21 08:11 Labs: Short CBC 04/04/21 04/05/21 Range/Units 18:16 06:08 WBC 18.0 H 16.3 H (4.8-10.8) X10*3/uL Hgb 10.6 L 10.4 L (12.0-16.0) g/dl Hct 34.4 L 34.8 L (37-47) % Plt Count 480 H 451 H (160-400) X10*3/uL BMP 04/04/21 04/05/21 19:38 08:11 Sodium 145 142 Potassium 4.1 4.0 Chloride 106 106 Carbon Dioxide 25 23 BUN 10 5 L Creatinine 0.69 0.65 Calcium 8.7 D 8.6 Liver Function 04/04/21 Range/Units 19:38 Total Bilirubin 0.2 (0.0-1.0) mg/dL Direct Bilirubin < 0.2 (0.0-0.5) mg/dL AST 26 (5-31) U/L ALT 21 (0-31) U/L Alkaline Phosphatase 76 (39-117) U/L Albumin 4.1 (3.5-5.0) g/dL Assessment and Plan (1) History of interstitial lung disease: Status: Acute (2) Pulmonary fibrosis: Status: Acute (3) Chronic respiratory failure with hypoxia: Status: Acute (4) Pneumonia: Status: Acute (5) Intractable pain: Status: Acute (6) Chest pain: Qualifiers: Chest pain type: unspecified Qualified Code(s): R07.9 - Chest pain, unspecified Status: Acute (7) Seizure disorder: Status: Acute Known epilepsy for many years. Breakthrough seizures in the last 3 weeks due to stopping Depakote 500 twice a day. Patient has been given a loading dose of Keppra. Start oral maintenance dose 500 mg twice a day which can be continued even during hospice 45-year-old female with past medical history of pulmonary fibrosis/interstitial lung disease who is currently on palliative care and possibly going to hospice although she has not made a decision yet presents with shortness of breath, cough, and intractable vomiting found to have acute pneumonia # community-acquired pneumonia patient afebrile, has leukocytosis above her baseline although on prednisone, continue IV ceftriaxone and azithromycin day 2 follow cultures COVID-19 negative # chest pain with deep breathing with underlying history of interstitial lung disease/pulmonary fibrosis No acute coronary syndrome, EKG with no acute ischemia, normal troponin, will treat with IV Dilaudid and start patient on OxyContin Continue supportive care with updraft treatment cough medication and change by mouth prednisone to IV Solu Medrol Will add stool softness due to constipation and being on high-dose narcotics # lactic acidosis likely due to nebulizer treatment, normal renal function, normal CT abdomen, continue IV fluid times 24 hours # intractable vomiting - no further bout of vomiting, feel nauseous abdominal CT negative for any acute abnormality supportive measures, Zofran p.r.n. will start full liquid diet # chronic respiratory failure on 6 L of home O2 due to interstitial lung disease, pulmonary fibrosis Continue O2 support steroids and updraft treatment, patient under palliative care at home # PTSD - continue home medications DVT prophylaxis: On Lovenox Procedures Date of Service Date of Service: 04/05/21
--- NOTE | 2021-04-05 20:51 | PM.EVENT ---
Event Note Date of Service: 04/05/21 Event Note: Rapid response was called on the patient due to seizure episode. While waiting to administer Ativan patient had a 2nd seizure episode. given 1 mg of IV Ativan. Discussed with neurologist, patient will receive another dose of IV Keppra, and 1 g of valproic acid. Patient will be started on 500 b.i.d. of valproic acid daily as well as Keppra 500 b.i.d. per Neurology recommendation. Patient hemodynamically stable currently postictal.
[2021-04-05] MEDS: LORazepam 2 MG/ML VIAL 1 MG IVPUSH (21:15)
[2021-04-05] MEDS: Lactated Ringers 1,000 ML 125 ML IVCONT (21:20)
[2021-04-05] MEDS: cefTRIAXone sodium 1 GM in 0.9 % Sodium Chloride 50 ML IV (21:21)
[2021-04-05] MEDS: Docusate Sodium 100 MG CAPSULE PO (21:21)
[2021-04-05] MEDS: Azithromycin 500 MG in 0.9 % Sodium Chloride 250 ML 125 MG IV (21:21)
[2021-04-05] MEDS: traZODone HCL 50 MG TABLET PO (21:22)
[2021-04-05] MEDS: Valproic Acid (as Sodium Salt) 1,000 MG in Dextrose 5 % 50 ML 60 MG IV (21:47)
[2021-04-06] MEDS: Enoxaparin Sodium 40 MG/0.4 ML SYRINGE SUBCUT (00:27)
--- NOTE | 2021-04-06 00:51 | PC.NURSE ---
At 1949 pt found to be having tonic clonic seizure lasting 60 seconds. pt turned on side for airway protection. STREET SWEEPER called. MD up to bedside. While pulling IV ativan, pt has second seizure lasting 45 seconds. 1mg IV ativan and 1000mg IV keppra given. pt postictal at this time with VSS.
[2021-04-06 04:00] VITALS: BP 148/71; PULSE 95; RESP 16; TEMP 36.3; O2SAT 93
[2021-04-06] MEDS: methylPREDNISolone Sod Succ 40 MG/ML VIAL IVPUSH (06:29)
[2021-04-06] MEDS: Lactated Ringers 1,000 ML 125 ML IVCONT (06:30)
[2021-04-06 06:57] VITALS: BP 143/74; PULSE 86; RESP 19; TEMP 37.1; O2SAT 99
[2021-04-06 09:23] VITALS: BP 143/74; PULSE 86; RESP 16
[2021-04-06] MEDS: HYDROmorphone HCl 0.5 MG/0.5 ML SYRINGE 1.5 MG IVPUSH (09:23)
[2021-04-06] MEDS: 0.9 % Sodium Chloride Flush 3 ML SYRINGE IVFLUSH (09:23)
[2021-04-06] MEDS: Metoprolol Succinate ER 25 MG TAB.ER.24H PO (09:23)
[2021-04-06] MEDS: Docusate Sodium 100 MG CAPSULE PO (09:23)
[2021-04-06] MEDS: Cyclobenzaprine HCl 10 MG TABLET PO (09:24)
[2021-04-06] MEDS: clonazePAM 1 MG TABLET PO (09:24)
[2021-04-06] MEDS: FLUoxetine HCl 20 MG CAPSULE 60 MG PO (09:24)
[2021-04-06] MEDS: levETIRAcetam 500 MG TABLET PO (09:24)
[2021-04-06] MEDS: OLANZapine 10 MG TABLET PO (09:24)
[2021-04-06] MEDS: oxyCODONE HCl ER 10 MG TAB.ER.12H PO (09:24)
[2021-04-06 11:05] VITALS: BP 135/74; PULSE 80; RESP 20; TEMP 36.1; O2SAT 99
--- NOTE | 2021-04-06 11:39 | P.DS_ITS ---
DS: Providers Provider Date of Service: 04/06/21 Date of admission: 04/04/21 22:33 Primary care physician: Wagner Devries MD Consults: 04/05/21 13:27 Consult to Neurology Routine Consulting Provider: [facility] Reason for consultation: seizure 04/05/21 15:55 Consult to Care Team Routine Comment: Reason for consultation: patient reports being depressed and wants to talk someone Has provider been notified: Yes DS: Diagnosis Discharge Diagnosis (1) History of interstitial lung disease: Status: Acute (2) Pulmonary fibrosis: Status: Acute (3) Chronic respiratory failure with hypoxia: Status: Acute (4) Pneumonia: Status: Acute (5) Intractable pain: Status: Acute (6) Chest pain: Status: Acute (7) Seizure disorder: Status: Acute DS: Medications Discharge Medications Home Medications: Home Medications Medication Instructions Recorded Confirmed clonazepam 1 mg tablet 1 tab PO TID 01/12/21 04/04/21 cyclobenzaprine 10 mg tablet 1 tab PO TID 01/12/21 04/04/21 fluoxetine 20 mg capsule 3 cap PO QAM 01/12/21 04/04/21 hydroxyzine HCl 25 mg tablet 1 tab PO BEDTIME PRN 01/12/21 04/04/21 metoprolol succinate 25 mg 1 tab PO DAILY 01/12/21 04/04/21 tablet,extended release 24 hr prednisone 20 mg tablet 1 tab PO DAILY 01/12/21 04/04/21 sulfamethoxazole 800 1 tab PO MOWEFR 01/12/21 04/04/21 mg-trimethoprim 160 mg tablet trazodone 50 mg tablet 1 tab PO BEDTIME 01/12/21 04/04/21 hydromorphone 2 mg tablet 1 tab PO QID 04/04/21 04/04/21 olanzapine 10 mg tablet 1 tab PO DAILY 04/04/21 04/04/21 Previous Rx's Medication Instructions Recorded levetiracetam 500 mg tablet 500 mg PO BID #60 tab 04/06/21 DS: Summary Hospital Course Hospital Course: History of presenting illness Chief Complaint: Vomiting, shortness of breath, chest pain This is a 45-year-old female with past medical history of chronic respiratory failure with hypoxia on 6 L of oxygen secondary to interstitial lung disease/pulmonary fibrosis, PTSD/anxiety who presents to the hospital with complaints of shortness of breath, cough, as well as chest pain and vomiting.? Patient reports that her symptoms started about a week ago, she is currently on palliative care, her home care start her on doxycycline on Sunday but patient started vomiting today and has not been able to take any of her antibiotics and as well as her pain medications for her chest pain.? Patient reports the chest pain is with breathing as her chronic pain secondary to her pulmonary fibrosis, has not changed, the pain is all over her chest and is not radiating, 06/05, she usually takes Dilaudid 2 mg p.o. every 46 hours but has not been able to take any medications today due to the vomiting.? Denies any abdominal pain no diarrhea, no urinary symptoms and no lower extremity edema. She is on chronic Bactrim for her history of interstitial lung disease prednisone. On arrival to the ED patient's vital significant for a temperature of 98.8?, heart rate of 117, respiratory rate of 26, blood pressure 1 7/97, satting 100% on 2 L of oxygen For WBC count of 18 which is higher than her baseline, hemoglobin of 10.6, left shift, pH of 7.34, lactic acid of 2.8, Chest CT shows low lung volumes with symmetric multifocal ground-glass opacities and subpleural reticulation.? Aside from a new focus of ground-glass consolidation in the anterior aspect of the right upper lobe indicative of possible superimposed new pneumonia. Given her intolerance to p.o. intake patient will be admitted for further evaluation and management Hospital course 45-year-old female with past medical history of pulmonary fibrosis/interstitial lung disease who is currently on palliative care and possibly going to hospice although she has not made a decision yet, presents with shortness of breath, cough, chest pain with deep breathing and intractable vomiting found to have a new small focus of superimposed pneumonia of right upper lobe, patient admitted to intermediate care unit treated with IV antibiotics, IV fluids and analgesic, during the course of hospitalization patient noted to have a tonic-clonic seizure therefore treated with intravenous Keppra, initially patient mentioned that previously she was on Depakote but stopped due to be being under palliative care, but later mention that she is being followed by neurologist at [facility], her EEG was unremarkable, she was told that her seizure could be related to COVID infection that she had last year, and she is not on any antiepileptic medication, Patient this morning woke up and wants to leave hospital against medical advice since she feels her symptoms of nausea, vomiting, and pain have resolved, she was recommended to stay another 24 hours in-house due to recurrent bout of seizures to stabilize her with medication but she is adamant to leave the hospital therefore she is being discharged home on Keppra 500 mg twice daily, patient was also noted to have lactic acidosis likely related to seizure, patient treated with IV fluid, it was noted that patient just finished a course of antibiotic, therefore will not give antibiotics, recommended her to have close outpatient follow-up with primary care physician, health services director and neurologist, she has been recommended to continue 6 L of oxygen and all of her home medication Discharge diagnosis Intractable nausea vomiting Intractable chest pain with deep breathing Community-acquired pneumonia Breakthrough seizures Lactic acidosis Time Spent with Patient Time attestation: Total time spent providing and/or coordinating discharge services: Discharge coordination time: Greater than 30 minutes Quality: Stroke Does the patient have a stroke diagnosis?: No Physical Exam Vital Signs: Vital Signs: Last Vital Signs Temp 96.9 F 04/06/21 11:05 Pulse 80 04/06/21 11:05 Resp 20 04/06/21 11:05 BP 135/74 04/06/21 11:05 Pulse Ox 99 04/06/21 11:05 Oxygen Flow Rate 6 04/05/21 20:05 Body Mass Index 24.9 General resting comfortably no acute distress Neck supple no JVD. CVS? regular rate rhythm, Respiratory lungs coarse breath sounds, no respiratory distress, no wheeze, no rhonchi, no use of accessory muscles Gastrointestinal abdomen soft, nontender, bowel sounds audible, no guarding , no rigidity. Extremities no edema. Neuro nonfocal ,speech clear. Skin no rash DS: Data Data Completed and Pending Labs on day of discharge: Laboratory Results - last 24 hr 04/05/21 04/05/21 04/05/21 12:06 12:56 13:13 O2 Saturation 99.0 ABG pH at Pt Temp 7.30 L ABG pCO2 at Pt Temp 33 ABG pO2 at Pt Temp 146 H ABG HCO3 17 L ABG Base Excess (Actual) -8.3 POC Glucose 211 H Lactic Acid Fup @ 4Hr 7.9 H* Preliminary micro results at discharge 04/04/21 19:38 Blood Culture - Preliminary Blood - Venous No growth after 24 hours. 04/04/21 18:16 Blood Culture - Preliminary Blood - Venous No growth after 24 hours. Discharge Plan Discharge Patient Disposition: Left Against Medical Advice Discharge Diagnosis: Breakthrough seizure Intractable vomiting Community-acquired pneumonia Lactic acidosis Intractable pain with breathing Referrals: Wagner Devries MD [Primary Care Provider] - 1 Week Discharge Medications: New levetiracetam 500 mg Tablet 500 mg PO BID Qty: 60 RF: 0 Continued cyclobenzaprine 10 mg tablet 1 tab PO TID RF: 0 trazodone 50 mg tablet 1 tab PO BEDTIME RF: 0 clonazepam 1 mg tablet 1 tab PO TID RF: 0 hydroxyzine HCl 25 mg tablet 1 tab PO BEDTIME PRN (Reason: anxiety) RF: 0 metoprolol succinate 25 mg tablet extended release 24 hr 1 tab PO DAILY RF: 0 fluoxetine 20 mg capsule 3 cap PO QAM RF: 0 prednisone 20 mg tablet 1 tab PO DAILY RF: 0 sulfamethoxazole-trimethoprim 800-160 mg tablet 1 tab PO MOWEFR RF: 0 olanzapine 10 mg tablet 1 tab PO DAILY RF: 0 hydromorphone 2 mg tablet 1 tab PO QID RF: 0 Discontinued doxycycline hyclate 100 mg capsule 1 cap PO BID RF: 0 Discharge Orders: Discharge Order (Routine); Ordered 04/06/21 Ordered By: Niurka Tillman Diet: advance to usual diet Activity on Discharge: no driving Stand Alone Forms: Patient Portal Discharge page Care Plan Goals: Breakthrough seizures, take Keppra 500 mg twice daily and follow-up with Neurology, nausea resolved, continue home pain medication, in regard to pneumon ia your recently finished a course of doxycycline if develops fever cough or worsening shortness of breath follow-up with primary care physician Do not drive a car,operate machine ,no tub bath lactic acidosis likely related to seizure Health Concerns: Chronic respiratory failure continue home oxygen 6 liters/minute, continue all home medication for anxiety and pain Plan of Treatment: Outpatient follow-up with Neurology in next 5-7 days, follow-up with primary care physician in 1 week Assessment: As above
--- NOTE | 2021-04-06 11:51 | MHC.CM.PN ---
Female 45 DX CAP intractable vomiting Discharge planned today. Pt states that she is leaving AMA. [facility] has been notified to resume services. Family is providing transportation.
--- NOTE | 2021-04-06 12:29 | PC.NURSE ---
Patient left against medical advice. Patient alert and oriented and informed of the risks associated with leaving against medical advice. Dr. Tillman in to see patient and also advised patient of the risks associated with leaving against medical advice, patient still desired to leave against medical advice and signed self out.
--- NOTE | 2021-04-06 14:02 | MHC.CARE ---
1340 - CARE Team arrives to meet with pt after receiving a consult yesterday late afternoon. Consult was placed as pt is experiencing depression secondary to late stages of a lung disease. CARE Team is advised by AUTOMATIC TYPEWRITER INSPECTOR at the desk that pt has left AMA.
== END 2021-04-06 12:05 | disposition left against medical advice (07) | DRG 139 ==
LOC: HO.ED 22:14 → HO.EDOVER 23:01 → HO.IMC 04-05 00:12
PROVIDERS: Nurse Practitioner Family; Admitting Provider Internal Medicine; Emergency Provider Emergency Medicine Emergency Medical Services; PCP Internal Medicine; Visit Provider Hospitalist
DX: J18.9 Pneumonia, unspecified organism (principal); J96.11 Chronic respiratory failure with hypoxia; E87.2 Acidosis; Z99.81 Dependence on supplemental oxygen; J84.10 Pulmonary fibrosis, unspecified; R11.2 Nausea with vomiting, unspecified; G40.89 Other seizures; R07.1 Chest pain on breathing; F43.10 Post-traumatic stress disorder, unspecified; Z20.822 Contact with and (suspected) exposure to COVID-19; Z88.0 Allergy status to penicillin; Z88.6 Allergy status to analgesic agent; Z79.2 Long term (current) use of antibiotics; Z79.52 Long term (current) use of systemic steroids; Z79.891 Long term (current) use of opiate analgesic; Z79.899 Other long term (current) drug therapy
CPT/HCPCS: 0241U; 36415; 36600; 71045; 71250; 74177; 80048; 80076; 82803; 82947; 83605; 83735; 83880; 84484; 85025; 87040; 93005; 94640; 96361; 96365; 96366; 96367; 96375; 96376; 99285; J0456; J0696; J1170; J1650; J1953; J2060; J2405; J2920; J2930; Q9967

== ENCOUNTER 2021-04-07 07:13 | Inpatient (IN) | payer OTHER, MEDICARE, SELFPAY ==
[2021-04-07] VITALS (13 sets, daily range): BP systolic 117–180; BP diastolic 53–110; PULSE 66–130; RESP 18–35; TEMP 37.2–39; O2SAT 90–97; BMI 25.3
--- NOTE | ~2021-04-07 | CT_ITS ---
EXAMINATION: CT ANGIOGRAM CHEST CLINICAL INFORMATION: Hypoxia. Pneumonitis/interstitial lung disease. COMPARISON: Most recent prior CT of the chest done on 04/04/2021. TECHNIQUE: Multiple axial images were obtained through the chest after the administration of 65 mL of Omnipaque 350 intravenous contrast. Extensive vascular post-processing including two-dimensional and three-dimensional reformatted images were created and reviewed on an independent workstation. This CT examination was performed using dose optimization techniques as appropriate, variously including the following: *Automated exposure control *Adjustment of mA and/or kV according to patient size (this includes techniques or standardized protocols for targeted exams where dose is matched to indication/reason for exam; i.e. extremities or head) *Use of iterative reconstruction technique DLP: 372 mGy-cm FINDINGS: LUNG: Diffuse groundglass airspace disease is noted throughout the entire visualized lung arteaga bilaterally, shows significant interval progression since prior study dated 04/04/2021. The appearance is nonspecific, may represent changes secondary to interstitial edema, diffuse alveolar hemorrhage, interstitial pneumonia, evolving interstitial lung disease as well as pulmonary alveolar proteinosis or hypersensitivity pneumonitis. PLEURA: No pleural effusion or pneumothorax. MEDIASTINUM: Normal heart size. No pericardial effusion. A few shotty prevascular lymph nodes are present, appear more pronounced since prior study. Shotty right paratracheal lymph nodes are also present, appear more pronounced since prior study, possibly reactive.. VASCULAR: No thoracic aortic aneurysm or dissection. Central pulmonary arteries opacify normally. CHEST WALL/AXILLA: No axillary or internal mammary lymphadenopathy. OSSEOUS STRUCTURES: No acute or suspicious osseous abnormality. UPPER ABDOMEN: Reflux of contrast into the IVC is noted. CT/CT angio chest IMPRESSION: Extensive diffuse nonspecific groundglass airspace disease is noted throughout both lung arteaga, shows significant interval progression since 04/04/2021 with evidence of prominent prevascular as well as right paratracheal mediastinal lymph nodes, likely reactive. There are groundglass airspace disease is nonspecific however, possible differential diagnostic consideration is given as above.
--- NOTE | ~2021-04-07 | XR_ITS ---
EXAMINATION: XR CHEST CLINICAL INFORMATION: Hypoxia COMPARISON: 04/07/2021 TECHNIQUE: Frontal view of the chest was obtained. FINDINGS: Low lung volumes. Bilateral airspace opacities are again noted, partially improved from prior. No pleural effusion or pneumothorax. The cardiomediastinal silhouette is within normal limits. XR/XR chest 1V IMPRESSION: Low lung volumes. Partially improved bilateral airspace opacities.
--- NOTE | ~2021-04-07 | XR_ITS ---
EXAMINATION: XR CHEST CLINICAL INFORMATION: Shortness of breath COMPARISON: Chest radiographs 04/04/2021, 01/12/2021, 11/04/2017 TECHNIQUE: Portable upright AP view of the chest was obtained. FINDINGS: There are low lung volumes. Patchy bilateral airspace consolidation is present predominantly perihilar on the right with sparing of the right apex and right lateral base. Left consolidation is more diffuse and scattered, upper and lower zones. There is no overt effusion. Mild elevation right hemidiaphragm is a chronic finding. The heart is within normal size. No acute bony abnormality. XR/XR chest 1V IMPRESSION: Diffuse bilateral patchy airspace consolidation. Low lung volumes.
--- NOTE | ~2021-04-07 | XR_ITS ---
EXAMINATION: XR CHEST CLINICAL INFORMATION: Pneumonia COMPARISON: Chest x-ray April 12, 2021 TECHNIQUE: Frontal portable view of the chest was obtained. 1330 hours FINDINGS: Persistent dense consolidation at left lung base with partial silhouetting of the diaphragm. The right diaphragm is elevated. Minor streaky airspace opacities of atelectasis remain at right lung base. No significant pulmonary vascular congestion. No pleural effusion. XR/XR chest 1V IMPRESSION: Persistent airspace opacity at left lung base. No significant change since chest x-ray April 12, 2021.
--- NOTE | 2021-04-07 07:35 | ED_ITS ---
HPI - General Adult General Chief complaint: Upper Respiratory Symptoms Stated complaint: diff breathing Time Seen by Provider: 04/07/21 07:23 Source: patient and EMS Mode of arrival: EMS Limitations: no limitations History of Present Illness HPI narrative: Patient comes to the emergency room complaining of shortness of breath. Patient has history of chronic respiratory failure with hypoxia on 6 L of oxygen at home secondary to interstitial lung disease/pulmonary fibrosis. Patient was hospitalized and left against medical advice yesterday. Patient was being treated for pneumonia, intractable chest pain, breakthrough seizures. seems to be on palliative care at home. According to EMS, this morning the patient's oxygen saturation was in the 70s on her 6 L of oxygen. Patient was started on a non-rebreather, oxygen improved to the low 90s. On arrival, it was noted that the patient has a fever of 102.2. Related Data Home Medications Medication Instructions Recorded Confirmed clonazepam 1 mg tablet 1 tab PO TID 01/12/21 04/04/21 cyclobenzaprine 10 mg tablet 1 tab PO TID 01/12/21 04/04/21 fluoxetine 20 mg capsule 3 cap PO QAM 01/12/21 04/04/21 hydroxyzine HCl 25 mg tablet 1 tab PO BEDTIME PRN 01/12/21 04/04/21 metoprolol succinate 25 mg 1 tab PO DAILY 01/12/21 04/04/21 tablet,extended release 24 hr prednisone 20 mg tablet 1 tab PO DAILY 01/12/21 04/04/21 sulfamethoxazole 800 1 tab PO MOWEFR 01/12/21 04/04/21 mg-trimethoprim 160 mg tablet trazodone 50 mg tablet 1 tab PO BEDTIME 01/12/21 04/04/21 hydromorphone 2 mg tablet 1 tab PO QID 04/04/21 04/04/21 olanzapine 10 mg tablet 1 tab PO DAILY 04/04/21 04/04/21 Previous Rx's Medication Instructions Recorded levetiracetam 500 mg tablet 500 mg PO BID #60 tab 04/06/21 Allergies Allergy/AdvReac Type Severity Reaction Status Date / Time Penicillins [PCN] Allergy Severe HIVES, Verified 04/04/21 16:54 ANGIOEDEMA fentanyl [FENTANYL] Allergy Intermediate UNKNOWN Verified 04/04/21 16:54 garlic [GARLIC] Allergy Unknown ANAPHYLAXIS Verified 04/04/21 16:54 mustard [MUSTARDS] Allergy Unknown ANAPHYLAXIS Verified 04/04/21 16:54 naproxen [NAPROXEN] Allergy Unknown UNKNOWN Verified 04/04/21 16:54 paroxetine [Paxil] Allergy Unknown Unknown Verified 04/04/21 16:54 penicillin V Allergy Unknown Unknown Verified 04/04/21 16:54 aspirin [ASA] AdvReac Intermediate HIVES, LIP Verified 04/04/21 16:54 SWELLING SUN Allergy Severe BLISTERS, Uncoded 01/12/21 00:15 ABD PAIN, DUE TO PORPHYRIA Review of Systems Review of Systems: Constitutional : No Weight loss complaining of fever and chills, No Night Sweats, complaining of chronic fatigue, malaise ENT/Mouth : No Hearing loss, No Ear Pain, No Nasal Congestion, No Sinus Pain, No Hoarseness, No sore throat, No Rhinorrhea, No Swallowing Difficulty Eyes: No Eye Pain, No Swelling, No Redness, No Foreign Body, No Discharge, No Vision Changes Cardiovascular : Complaining of chronic Chest Pain, unchanged since left against medical advice, complaining of worsening shortness of breath Respiratory : Has chronic Cough, chronic dyspnea Gastrointestinal : No Nausea, No Vomiting, No Diarrhea, No Constipation, No ab dominal Pain, No Hematochezia, No Melena Genitourinary : no irregular bleeding, No Dysuria, No Urinary Frequency, No Hematuria, No Urinary Incontinence, No Urgency, No Flank Pain, No Urinary Flow Changes, No Hesitancy Musculoskeletal : No joint pain, complaining of generalized myalgias, No Joint Swelling Skin : No Skin Lesions, No rash Neuro : No Weakness, No Numbness, No Paresthesias, No Loss of Consciousness, No Dizziness, No Headache Psych : No SI/HI/AH/VH, No Social Issues, Heme/Lymph: No Bruising, No Bleeding,No Lymphadenopathy Endocrine : No Polyuria, No Polydipsia, No Temperature Intolerance PMFSH Past Medical History Medical History Chronic respiratory failure with hypoxia History of interstitial lung disease Oxygen dependent Pulmonary fibrosis Seizures Social History Social History Household Members: Spouse Housing: House Do you presently have visiting nurse or other home services: Yes (palliative care) Alcohol intake: never Patient Tobacco Use Status: Never used Tobacco Advance Directives: Yes Advance Directives on File: Yes Advance Directives Date on File: 01/12/21 Patient : No service: No Current occupational status: unemployed and disabled Physical Exam Vital Signs: Vital Signs: Last Vital Signs Temp 102.2 F H 04/07/21 07:20 Pulse 130 H 04/07/21 07:20 Resp 18 04/07/21 09:38 BP 120/57 L 04/07/21 07:20 Pulse Ox 94 04/07/21 07:20 Body Mass Index 25.3 Const: Other: Appearance: Alert. Oriented X3. Mild distress, very anxious, Eyes: Pupils equal, round and reactive to light. ENT: Pharynx normal. Neck: Normal inspection. Neck supple. No lymph nodes noted. No crepitus CVS: Tachycardic Pulses normal. Normal S1 and S2 Respiratory: Moderate respiratory distress, on 15 L, bilateral crackles and rales, decreased breath sounds bilaterally Abdomen: Soft and nontender. No rigidity. No distention. good BS x4 Skin: Skin warm and dry. Normal skin color. Normal skin turgor. Extremities: No lower extremity edema. No lower extremity edema. No Lacerations. No Rash Neuro: Oriented X 3. No motor deficit. No sensory deficit. Moving all extermities. No slurred speech. Course Course Course Narrative: Patient usually uses 6 L of oxygen at home, however this was not enough for the patient since her oxygen dropped to the mid 70s at 6 L. patient was started on high-flow, no oxygen saturation ranging between 89% to 91%. I discussed the patient with Dr. Tillman, patient being treated for pneumonia , patient did have a documented fever of 102.2 here in the emergency room. Patient's lactic acid is chronically elevated. I discussed the patient with Dr. Tillman, on her previous admission, they spoke to the patient about hospice. Likely to continue this conversation during this admission Medical Decision Making Lab Data Result diagrams: 04/07/21 09:45 04/07/21 09:45 Labs: Lab Results 04/07/21 04/07/21 04/07/21 Range/Units 08:05 09:34 09:45 WBC 22.9 H (4.8-10.8) X10*3/uL RBC 3.37 L (4.20-5.50) X10*6/uL Hgb 8.8 L (12.0-16.0) g/dl Hct 28.3 L (37-47) % MCV 84.0 (80-98) fL MCH 26.1 L (27.0-33.0) pg MCHC 31.1 (31.0-35.0) g/dl RDW 16.0 (11.0-16.0) % Plt Count 374 (160-400) X10*3/uL MPV 8.2 L (9.4-12.3) fL Immature Gran % (Auto) 0.9 H (0.0-0.4) % Neut % (Auto) 90.8 H (45-73) % Lymph % (Auto) 3.1 L (20-40) % [place] % (Auto) 5.1 (2-11) % Eos % (Auto) 0.0 (0-4) % Baso % (Auto) 0.1 (0-2) % Lymph # (Auto) 0.7 L (1.2-4.9) X10*3/uL [place] # (Auto) 1.2 (0.1-1.2) X10*3/uL Eos # (Auto) 0.0 (0.0-0.4) X10*3/uL Baso # (Auto) 0.0 (0.0-0.2) X10*3/uL Abs Immat Gran (auto) 0.21 H (0.00-0.03) X10*3/uL Absolute Neuts (auto) 20.8 H (2.0-8.3) X10*3/uL Absolute Nucleated RBC 0.000 (0.0-0.012) X10*3/uL Nucleated RBC % (auto) 0.0 (0.0-0.2) /100WBC Smear Tech's Comments VERIFIED PT (9.9-13.0) SEC INR (0.9-1.1) VBG pH (7.32-7.43) VBG pCO2 mmHg VBG pO2 mmHg VBG HCO3 (22-26) mmol/L VBG O2 Saturation % VBG Base Excess mmol/L Sodium (135-145) mmol/L Potassium (3.3-5.1) mmol/L Chloride (96-108) mmol/L Carbon Dioxide (22-29) mmol/L Anion Gap (12-20) BUN (9-16) mg/dL Creatinine (0.5-1.4) mg/dL Estim Creat Clear Calc Estimated GFR Random Glucose (60-115) mg/dL Lactic Acid (0.5-2.0) mmol/L Calcium (8.4-10.2) mg/dL Total Bilirubin (0.0-1.0) mg/dL Direct Bilirubin (0.0-0.5) mg/dL AST (5-31) U/L ALT (0-31) U/L Alkaline Phosphatase (39-117) U/L Troponin I High Sens (<3.5-17.0) ng/L B-Natriuretic Peptide (<100) pg/mL Total Protein (6.5-8.0) g/dL Albumin (3.5-5.0) g/dL Beta HCG, Quant mIU/mL Urine Opiates Screen Not Detected (Not Detect) Urine Fentanyl Screen Not Detected (Not Detect) Ur Barbiturates Screen Not Detected (Not Detect) Ur Phencyclidine Scrn Not Detected (Not Detect) Ur Amphetamines Screen Not Detected (Not Detect) U Benzodiazepines Scrn Not Detected (Not Detect) Urine Cocaine Screen Not Detected (Not Detect) U Marijuana (THC) Screen POSITIVE H (Not Detect) Coronavirus (PCR) NEGATIVE (Negative) Influenza Type A (PCR) NEGATIVE (Negative) Influenza Type B (PCR) NEGATIVE (Negative) RSV RNA Qual (PCR) NEGATIVE (Negative) 04/07/21 04/07/21 04/07/21 Range/Units 09:45 09:45 09:45 WBC (4.8-10.8) X10*3/uL RBC (4.20-5.50) X10*6/uL Hgb (12.0-16.0) g/dl Hct (37-47) % MCV (80-98) fL MCH (27.0-33.0) pg MCHC (31.0-35.0) g/dl RDW (11.0-16.0) % Plt Count (160-400) X10*3/uL MPV (9.4-12.3) fL Immature Gran % (Auto) (0.0-0.4) % Neut % (Auto) (45-73) % Lymph % (Auto) (20-40) % [place] % (Auto) (2-11) % Eos % (Auto) (0-4) % Baso % (Auto) (0-2) % Lymph # (Auto) (1.2-4.9) X10*3/uL [place] # (Auto) (0.1-1.2) X10*3/uL Eos # (Auto) (0.0-0.4) X10*3/uL Baso # (Auto) (0.0-0.2) X10*3/uL Abs Immat Gran (auto) (0.00-0.03) X10*3/uL Absolute Neuts (auto) (2.0-8.3) X10*3/uL Absolute Nucleated RBC (0.0-0.012) X10*3/uL Nucleated RBC % (auto) (0.0-0.2) /100WBC Smear Tech's Comments PT 13.3 H (9.9-13.0) SEC INR 1.2 H (0.9-1.1) VBG pH (7.32-7.43) VBG pCO2 mmHg VBG pO2 mmHg VBG HCO3 (22-26) mmol/L VBG O2 Saturation % VBG Base Excess mmol/L Sodium 143 (135-145) mmol/L Potassium 3.7 (3.3-5.1) mmol/L Chloride 105 (96-108) mmol/L Carbon Dioxide 24 (22-29) mmol/L Anion Gap 18 (12-20) BUN 4 L (9-16) mg/dL Creatinine 0.69 (0.5-1.4) mg/dL Estim Creat Clear Calc 96.9 Estimated GFR > 60 Random Glucose 113 (60-115) mg/dL Lactic Acid 5.0 H* (0.5-2.0) mmol/L Calcium 8.6 (8.4-10.2) mg/dL Total Bilirubin 0.4 (0.0-1.0) mg/dL Direct Bilirubin 0.2 (0.0-0.5) mg/dL AST 29 (5-31) U/L ALT 15 (0-31) U/L Alkaline Phosphatase 71 (39-117) U/L Troponin I High Sens (<3.5-17.0) ng/L B-Natriuretic Peptide (<100) pg/mL Total Protein 6.0 L (6.5-8.0) g/dL Albumin 3.6 (3.5-5.0) g/dL Beta HCG, Quant < 2 mIU/mL Urine Opiates Screen (Not Detect) Urine Fentanyl Screen (Not Detect) Ur Barbiturates Screen (Not Detect) Ur Phencyclidine Scrn (Not Detect) Ur Amphetamines Screen (Not Detect) U Benzodiazepines Scrn (Not Detect) Urine Cocaine Screen (Not Detect) U Marijuana (THC) Screen (Not Detect) Coronavirus (PCR) (Negative) Influenza Type A (PCR) (Negative) Influenza Type B (PCR) (Negative) RSV RNA Qual (PCR) (Negative) 04/07/21 04/07/21 Range/Units 09:45 09:53 WBC (4.8-10.8) X10*3/uL RBC (4.20-5.50) X10*6/uL Hgb (12.0-16.0) g/dl Hct (37-47) % MCV (80-98) fL MCH (27.0-33.0) pg MCHC (31.0-35.0) g/dl RDW (11.0-16.0) % Plt Count (160-400) X10*3/uL MPV (9.4-12.3) fL Immature Gran % (Auto) (0.0-0.4) % Neut % (Auto) (45-73) % Lymph % (Auto) (20-40) % [place] % (Auto) (2-11) % Eos % (Auto) (0-4) % Baso % (Auto) (0-2) % Lymph # (Auto) (1.2-4.9) X10*3/uL [place] # (Auto) (0.1-1.2) X10*3/uL Eos # (Auto) (0.0-0.4) X10*3/uL Baso # (Auto) (0.0-0.2) X10*3/uL Abs Immat Gran (auto) (0.00-0.03) X10*3/uL Absolute Neuts (auto) (2.0-8.3) X10*3/uL Absolute Nucleated RBC (0.0-0.012) X10*3/uL Nucleated RBC % (auto) (0.0-0.2) /100WBC Smear Tech's Comments PT (9.9-13.0) SEC INR (0.9-1.1) VBG pH 7.43 (7.32-7.43) VBG pCO2 40 mmHg VBG pO2 50 mmHg VBG HCO3 27 H (22-26) mmol/L VBG O2 Saturation 79.0 % VBG Base Excess 3.4 mmol/L Sodium (135-145) mmol/L Potassium (3.3-5.1) mmol/L Chloride (96-108) mmol/L Carbon Dioxide (22-29) mmol/L Anion Gap (12-20) BUN (9-16) mg/dL Creatinine (0.5-1.4) mg/dL Estim Creat Clear Calc Estimated GFR Random Glucose (60-115) mg/dL Lactic Acid (0.5-2.0) mmol/L Calcium (8.4-10.2) mg/dL Total Bilirubin (0.0-1.0) mg/dL Direct Bilirubin (0.0-0.5) mg/dL AST (5-31) U/L ALT (0-31) U/L Alkaline Phosphatase (39-117) U/L Troponin I High Sens 3.8 (<3.5-17.0) ng/L B-Natriuretic Peptide 88 (<100) pg/mL Total Protein (6.5-8.0) g/dL Albumin (3.5-5.0) g/dL Beta HCG, Quant mIU/mL Urine Opiates Screen (Not Detect) Urine Fentanyl Screen (Not Detect) Ur Barbiturates Screen (Not Detect) Ur Phencyclidine Scrn (Not Detect) Ur Amphetamines Screen (Not Detect) U Benzodiazepines Scrn (Not Detect) Urine Cocaine Screen (Not Detect) U Marijuana (THC) Screen (Not Detect) Coronavirus (PCR) (Negative) Influenza Type A (PCR) (Negative) Influenza Type B (PCR) (Negative) RSV RNA Qual (PCR) (Negative) Imaging Data Chest x-ray: Radiologist's impression: There are low lung volumes. Patchy bilateral airspace consolidation is present predominantly perihilar on the right with sparing of the right apex and right lateral base. Left consolidation is more diffuse and scattered, upper and lower zones. There is no overt effusion. Mild elevation right hemidiaphragm is a chronic finding. The heart is within normal size. No acute bony abnormality. XR/XR chest 1V IMPRESSION: Diffuse bilateral patchy airspace consolidation. Low lung volumes. ECG Data Attestation: I personally reviewed and interpreted this ECG as follows: (Sinus rhythm 131, nonspecific ST changes in leads V3 through V6, no acute pathology, QTC 301) Critical Care Time Critical Care Time Critical Care Time: Yes Total Critical Care Time: 60 Attestation: 60 minutes were spent with the patient in direct care and stabilization Discharge Plan Discharge Clinical Impression: Chronic respiratory failure with hypoxia, Pneumonia Patient Disposition: Admitted As Inpatient
[2021-04-07] MEDS: 0.9 % Sodium Chloride 1,000 ML 999 ML IVCONT ×2 (07:44→07:45)
[2021-04-07] MEDS: HYDROmorphone HCl 1 MG/ML SYRINGE IVPUSH (08:32)
[2021-04-07 09:00] LABS: Influenza A PCR NEGATIVE (Negative); Influenza B PCR NEGATIVE (Negative); Resp Syncy Virus RNA Qual PCR NEGATIVE (Negative); SARS COV2 PCR INHOUSE NEGATIVE (Negative)
--- NOTE | 2021-04-07 09:05 | PC.NURSE ---
DIFFICULT TO OBTAIN LABS, PHLEBOTOMY HAS BEEN CALLED TWICE, WILL CONTINUE TO TRY TO OBTAIN LAB WORK. IV ACCESS ESTABLISHED. PT CONTINUES TO DESAT, RESP CURRENTLY AT BEDSIDE TO START HIGH FLOW. PROVIDER GEORGIA DOMINGUEZ
--- NOTE | 2021-04-07 09:08 | ECG_ITS ---
Test Reason : SOB Blood Pressure : / mmHG Vent. Rate : 131 BPM Atrial Rate : 131 BPM P-R Int : 150 ms QRS Dur : 072 ms QT Int : 204 ms P-R-T Axes : 041 001 193 degrees QTc Int : 301 ms Sinus tachycardia Left ventricular hypertrophy with repolarization abnormality ; cannot exclude ischemia Abnormal ECG When compared with ECG of 04-APR-2021 17:22, No significant changes seen Referred By: Ling Baig Electronically Signed By:MARINA PACHECO
[2021-04-07 10:00] LABS: Basophils Percent Auto 0.1 % (0-2); Hematocrit 28.3 % (37-47); Hemoglobin 8.8 g/dl (12.0-16.0); Imm Gran Abs Auto 0.21 X10*3/uL (0.00-0.03); Imm Gran Pct Auto 0.9 % (0.0-0.4); Lymphocytes Absolute Auto 0.7 X10*3/uL (1.2-4.9); Lymphocytes Percent Auto 3.1 % (20-40); MANUAL DIFF FLAG SCAN; Mean Corpuscular HGB Conc 31.1 g/dl (31.0-35.0); Mean Corpuscular Hemoglobin 26.1 pg (27.0-33.0); Mean Platelet Volume 8.2 fL (9.4-12.3); Monocytes Absolute Auto 1.2 X10*3/uL (0.1-1.2); Monocytes Percent Auto 5.1 % (2-11); Neutrophils Absolute Auto 20.8 X10*3/uL (2.0-8.3); Neutrophils Percent Auto 90.8 % (45-73); Platelet Count 374 X10*3/uL (160-400); Red Blood Count 3.37 X10*6/uL (4.20-5.50); SCAN SMEAR FLAG 1; White Blood Count 22.9 X10*3/uL (4.8-10.8)
[2021-04-07 10:01] LABS: Venous Blood Gas Refer to POC result
[2021-04-07 10:02] LABS: VBG Base Excess 3.4 mmol/L; VBG HCO3 27 mmol/L (22-26); VBG pCO2 40 mmHg; VBG pH 7.43 (7.32-7.43); VBG pO2 50 mmHg
[2021-04-07 10:02] LABS: Amphetamine Screen Urine Not Detected (Not Detect); Barbiturates, Urine Not Detected (Not Detect); Benzodiazepines Screen Urine Not Detected (Not Detect); Cannabinoid Screen Urine POSITIVE (Not Detect); Cocaine Screen Urine Not Detected (Not Detect); Fentanyl, urine Not Detected (Not Detect); Opiate Screen Urine Not Detected (Not Detect); Phencyclidine Screen Urine Not Detected (Not Detect)
[2021-04-07 10:05] LABS: INTERNATIONAL NORM RATIO 1.2 (0.9-1.1); Prothrombin Time 13.3 SEC (9.9-13.0)
[2021-04-07 10:22] LABS: SLIDE REVIEW VERIFIED
[2021-04-07 10:30] LABS: B Type Natriuretic Peptide 88 pg/mL (<100); Troponin-I High Sensitivity 3.8 ng/L (<3.5-17.0)
[2021-04-07 10:32] LABS: HCG Quantitative < 2 mIU/mL
[2021-04-07 10:36] LABS: Alanine Aminotransferase 15 U/L (0-31); Albumin Level 3.6 g/dL (3.5-5.0); Alkaline Phosphatase 71 U/L (39-117); Anion Gap 18 (12-20); Aspartate Amino Transferase 29 U/L (5-31); Bilirubin Direct 0.2 mg/dL (0.0-0.5); Bilirubin Total 0.4 mg/dL (0.0-1.0); Blood Urea Nitrogen 4 mg/dL (9-16); Calcium 8.6 mg/dL (8.4-10.2); Carbon Dioxide 24 mmol/L (22-29); Chloride 105 mmol/L (96-108); Creatinine Clr Calc Pharmacy 96.9; Estimated Glomerular Filt Rate > 60; Glucose Random 113 mg/dL (60-115); Potassium 3.7 mmol/L (3.3-5.1); Sodium 143 mmol/L (135-145)
--- NOTE | 2021-04-07 10:50 | PC.NURSE ---
pt very difficut to obtain labs, second set of cultures sent at 0945
[2021-04-07] MEDS: Acetaminophen 325 MG TABLET 650 MG PO ×2 (10:53→18:09)
[2021-04-07] MEDS: levoFLOXacin/D5W 500 MG/100 ML PIGGYBACK 100 MG IV (10:53)
[2021-04-07 11:53] LABS: Reflex Lactate? Lactic Acid Added
[2021-04-07 12:40] LABS: ~Lactic Acid-LAB USE ONLY 4.2 mmol/L (0.5-2.0)
--- NOTE | 2021-04-07 13:33 | PHA.MEDREC ---
Pharmacy Consult ? Medication Reconciliation Pharmacy has completed the medication reconciliation. Reports not taking Keppra. it was filled yesterday 04/06/2021 for the first time so patient most likely hasn't started it yet. Patient reports taking Olanzapine 5mg daily however the claim history says Olanzapine 10mg daily 03/31/2021. Patient was previously of 2.5mg of Olanzapine. Carola Isbell, PharmD
[2021-04-07] MEDS: Enoxaparin Sodium 40 MG/0.4 ML SYRINGE SUBCUT (14:15)
[2021-04-07] MEDS: methylPREDNISolone Sod Succ 40 MG/ML VIAL IV ×2 (14:15→20:15)
[2021-04-07 14:19] LABS: Reflex Lactate? 2 Y
--- NOTE | 2021-04-07 14:32 | PC.NURSE ---
PT PLAN FOR ADMISSION, CURRENTLY ON HFNC. SEEN BY HOSPITALIST. WAITING ON BED ASSIGNMENT.
[2021-04-07 15:01] LABS: ~Lactic Acid-LAB USE ONLY 3.7 mmol/L (0.5-2.0)
--- NOTE | 2021-04-07 16:57 | HP_ITS ---
DATE OF SERVICE: 04/07/2021 CHIEF COMPLAINT: Shortness of breath and fever. HISTORY OF PRESENTING ILLNESS: This is a 45-year-old female patient with past medical history significant for chronic respiratory failure, on 6 L of home oxygen with underlying history of interstitial lung disease; pulmonary fibrosis; history of multiple lung nodules and history of substance abuse, who left [facility] against medical advice yesterday after being admitted for pneumonia and chest pain with deep breathing. The patient during the hospitalization was also noted to have tonic-clonic seizures and was started on antiepileptic medication. However, the patient returned back to [facility] today due to symptoms of shortness of breath, fever of 102, and significant chest pain with deep breathing. The patient is on palliative care at home and plan is to transition to hospice care. In the emergency room, the patient was noted to be febrile with a temperature of 102.2. She was hypoxic with finger oximetry of 70s on 6 L as per EMS. The patient was placed on nonrebreather, oxygen improved to low 90s. The patient subsequently placed on high-flow oxygen, currently oxygenating well, but the patient complaining of significant chest pain with deep breathing, asking for Dilaudid. The patient complaining of persistent nausea, no vomiting. Also complaining of dry cough, no sputum production. Denies any sick contacts. Denies using any illicit drugs besides her Dilaudid. A chest x-ray today showed diffuse bilateral patchy airspace consolidation and low lung volumes. The patient's recent CT chest on April 04, showed right upper lobe new ground-glass opacity concerning for pneumonia. The patient is being admitted to [facility] due to acute on chronic hypoxic respiratory failure, hospital-acquired pneumonia, and intractable pain. PAST MEDICAL HISTORY: Significant for, 1. History of degenerative joint disease, history of depression. 2. History of esophageal reflux. 3. History of hyperlipidemia and hypokalemia. 4. Insomnia. 5. Interstitial lung disease. 6. Irritable bowel syndrome. 7. Lumbago. 8. Posttraumatic stress disorder. 9. Seizure disorder. 10. History of syncope and collapse. 11. History of substance abuse, last in 2016. 12. History of abdominal pain. PAST SURGICAL HISTORY: Status post esophagogastroduodenoscopy in July of 2019. ALLERGIES: SHE IS ALLERGIC TO PENICILLIN THAT CAUSE HIVES AND ANGIOEDEMA. GARLIC AND MUSTARD CAUSE ANAPHYLAXIS. NAPROSYN AND PAROXETINE CAUSE UNKNOWN ALLERGY. ASPIRIN CAUSES HIVES AND LIP SWELLING. SUN EXPOSURE CAUSES BLISTERS AND ABDOMINAL PAIN DUE TO PORPHYRIA. FENTANYL, UNKNOWN ALLERGY. MEDICATIONS ON ADMISSION: Hydromorphone 2 mg q.i.d.; loratadine 10 mg daily; clonazepam 1 mg t.i.d. as needed; cyclobenzaprine 10 mg t.i.d. as needed; fluoxetine 20 mg tablet, the patient takes 80 mg daily; hydroxyzine 25 at bedtime; metoprolol 25 mg daily; olanzapine 5 mg daily; prednisone 20 mg daily; Bactrim 1 tablet Sunday, Sunday, and Sunday; and trazodone 50 mg at bedtime. SOCIAL HISTORY: The patient lives with her . No history of smoking or alcohol abuse. FAMILY HISTORY: There is no family history of premature coronary artery disease. REVIEW OF SYSTEMS: CONSTITUTIONAL: She denies weight loss. Complaining of fever and chills. SKIN: She denies any rashes or itching. CARDIOVASCULAR: She denies palpitations. She has chest pain with deep breathing only. RESPIRATORY: Complaining of shortness of breath, dry cough, no sputum production. GASTROINTESTINAL: She complains of nausea. No vomiting. No diarrhea. No abdominal pain. : She denies any urinary burning or frequency. MUSCULOSKELETAL: She denies any back pain or stiffness. Rest of all other systems are reviewed and are negative. LABORATORY DATA: WBC 22.9, hematocrit 28.3, platelets of 374. Sodium 143, potassium 3.7, BUN 4, creatinine of 0.6. Lactic acid 4.2. Normal LFTs. ABGs showed a pH of 7.4, oxygenation 79%, and pCO2 of 40. Chest x-ray as mentioned earlier. PHYSICAL EXAMINATION: GENERAL: The patient is sitting comfortably on bed, talking in full sentences, constantly asking for pain medication. HEENT: Pupils equal, round, and reactive to light and accommodation. Extraocular muscles are intact. Anicteric sclerae. NECK: Supple. No JVD. No lymphadenopathy. LUNGS: Bilateral coarse breath sounds. Diminished air movement. No wheeze. No rhonchi. ABDOMEN: Soft and nontender. Bowel sounds are audible. No guarding. No rigidity. EXTREMITIES: No clubbing or cyanosis. Mild edema. NEUROLOGIC: Nonfocal. SKIN: No rashes. ASSESSMENT AND PLAN: A 45-year-old female patient with past medical history significant for pulmonary fibrosis/interstitial lung disease, currently under palliative care, just left [facility] against medical advice yesterday after a brief stay in the hospital with diagnoses of community-acquired pneumonia, intractable nausea, vomiting and breakthrough seizures. 1. Hospital-acquired pneumonia. The patient noted to be febrile with leukocytosis. The patient will be placed on IV Levaquin has allergy to penicillin,will follow blood cultures, will add cough medications. Supportive care. 2. Acute on chronic hypoxic respiratory failure, likely due to superimposed pneumonia with underlying interstitial lung disease and pulmonary fibrosis. The patient will be treated with IV antibiotic as above. We will place on IV steroids, updraft treatment, cough medication, encourage incentive spirometry and out of bed to chair. We will obtain Pulmonary consultation. 3. Sepsis due to pneumonia. The patient meets sepsis criteria due to leukocytosis, tachypnea, tachycardia, and lactic acidosis. The patient will be treated with IV antibiotics, supportive care. Follow blood cultures, adjust antibiotics. 4. Intractable pain with deep breathing. The patient is under palliative care, is being giving weekly narcotic medications by primary care due to underlying history of substance abuse. The patient will be continued on Dilaudid. Tried to reach the patient's primary care physician, Brittany Augustine NP/Dr Lopez not available spoke with the nurse and left message,will discuss discharge planning and narcotic dose adjustment with PCP. 5. History of seizures. The patient was noted to have seizures during her recent hospitalization and was started on Keppra 500 mg twice daily. we will continue Keppra 500 b.i.d., takeseizure precautions. She has an outpatient neurologist at [facility]. Recommend to have close followup with Neurology upon discharge. MD BANDAR Martinez/DEE / [phone] MTDJodi
[2021-04-07] MEDS: 0.9 % Sodium Chloride Flush 3 ML SYRINGE IVFLUSH ×2 (17:58→20:16)
[2021-04-07] MEDS: HYDROmorphone HCl 2 MG TABLET PO ×2 (17:58→21:49)
[2021-04-07] MEDS: clonazePAM 1 MG TABLET PO (22:29)
[2021-04-08] VITALS (15 sets, daily range): BP systolic 102–135; BP diastolic 59–96; PULSE 97–117; RESP 18–22; TEMP 36.4–37.7; O2SAT 90–98; BMI 25.3
[2021-04-08] MEDS: HYDROmorphone HCl 2 MG TABLET PO ×5 (03:03→22:39)
[2021-04-08] MEDS: Acetaminophen 325 MG TABLET 650 MG PO ×2 (03:07→12:56)
[2021-04-08] MEDS: methylPREDNISolone Sod Succ 40 MG/ML VIAL IV ×3 (04:38→20:47)
[2021-04-08] MEDS: OLANZapine 5 MG TABLET PO (08:48)
[2021-04-08] MEDS: levoFLOXacin/D5W 500 MG/100 ML PIGGYBACK 100 MG IV (08:49)
[2021-04-08] MEDS: Metoprolol Succinate ER 25 MG TAB.ER.24H PO (08:49)
[2021-04-08] MEDS: 0.9 % Sodium Chloride Flush 3 ML SYRINGE IVFLUSH ×3 (08:49→20:47)
[2021-04-08] MEDS: FLUoxetine HCl 20 MG CAPSULE 60 MG PO (08:49)
--- NOTE | 2021-04-08 10:00 | MHC.CM.PN ---
CM MET WITH PT WHO IS A READMISSION AFTER LEAVING [facility] ON 04/06/21. PT CONFIRMS NOTHING IN HER DEMOGRAPHICS HAS CHANGED AND SHE IS STILL ACTIVE WITH [facility] FOR PALLIATIVE CARE. PT REPORTS SHE HAS HOME OXYGEN PROVIDED BY [facility]. HCP IS ON FILE AND PCP IS [facility] LL[facility]AS CURRENT DC PLAN IS HOME WITH RESUMPTION OF SERVICES S/O TO TRANSPORT
--- NOTE | 2021-04-08 10:16 | PM.CNPUL ---
History of Present Illness History of Present Illness Consult date: 04/08/21 Chief complaint: acute respiratory failure Narrative: I WAS REQUESTED TO SEE THIS PATIENT FOR PULMONARY CONSULTATION. I DID HAVE GOOD CONVERSATION WITH THE PATIENT, REVIEWED THE ELECTRONIC RECORDS, LAB AND IMAGING. THIS 45 YEARS OLD FEMALE IS A KNOWN CASE OF EXTENSIVE PULMONARY FIBROSIS, SECONDARY TO SCLERODERMA, SHE IS NORMALLY BEING FOLLOWED BY PULMONARY DEPARTMENT AT [facility]. HAS BEEN ON PREDNISONE 20 MG A DAY, AND BACTRIM DS FOR LONG TIME. CURRENTLY SHE WAS ADMITTED ON 04/04 AND LEFT AGAINST MEDICAL ADVICE ON 04/06. DURING THAT BRIEF STAY IN THE HOSPITAL SHE WAS AFEBRILE, AND BLOOD CULTURES WERE NEGATIVE. SHE RETURNS TO THE HOSPITAL ON 04/07, BECAUSE OF INCREASED RESPIRATORY DISTRESS AND NONSPECIFIC CHEST DISCOMFORT, NOT COMPLETELY RELIEVED BY HER PAIN MEDS. THIS TIME ON ADMISSION SHE IS NOTED TO BE FEBRILE WITH TEMPERATURE 102 F . SHE DENIES FEELING FEVERISH OR HAVING ANY CHILLS. SHE CONTINUES TO HAVE MILD TO MODERATE DEGREE OF COUGH WHICH IS NOT VERY PRODUCTIVE. SHE WAS ON HER OXYGEN BY NASAL CANNULA AT 6 L/MINUTE AND WITH THAT HER RESPIRATORY DISTRESS WAS NOT CONTROLLED. THIS PATIENT IS ON PALLIATIVE CARE, WHICH INCLUDES THE OXYGEN BY NASAL CANNULA TO 6 L/MINUTE, PREDNISONE 20 MG A DAY, BACTRIM DS, PAIN MEDS WE HAVE DILAUDID 2 MG Q 4-6 HOURS. PATIENT IS CONSIDERING TO TRANSITION TO HOSPICE CARE. Review of Systems Review of Systems: Yes all other systems are reviewed and are negative PMFSH Past Medical History Medical History (Updated 04/08/21 @ 10:26 by Bull Tadeo MD) Chronic respiratory failure with hypoxia History of interstitial lung disease Oxygen dependent Pulmonary fibrosis Respiratory failure, acute and chronic Seizures Social History Social History Household Members: Spouse Housing: House Do you presently have visiting nurse or other home services: Yes (Palliative care) Alcohol intake: never Patient Tobacco Use Status: Never used Tobacco Use of substances other than those prescribed or required for medical reasons: Yes Substance Use Type: Marijuana Substance Use Type Other:: edibles Substance Use Frequency: Monthly Last Used Substance: Weeks (ago) Currently Displaying Signs/Symptoms of Drug Intoxication Withdrawal: No Any prior treatment program specific to substance use: No Have you been hit, kicked, punched, or otherwise hurt by someone within the past year? If so, by whom?: No Do you feel safe in your current relationship?: Yes Is there a partner from a previous relationship who is making you feel unsafe now?: No Are you made to feel afraid or neglected: No Advance Directives: Yes Advance Directives on File: Yes Advance Directives Date on File: 01/12/21 Do you have thoughts of harming others: None Do you have a plan to hurt others: No Plan Recently lost weight without trying: No How much weight loss: 14-23 pounds Eating poorly because of decreased appetite: No Nutrition screen score: 2 Nutrition Risks: No Nutritional Risk Patient : No : No Poor oral hygiene: No service: No Current occupational status: unemployed and disabled Meds Allergies Allergy/AdvReac Type Severity Reaction Status Date / Time Penicillins [PCN] Allergy Severe HIVES, Verified 04/04/21 16:54 ANGIOEDEMA fentanyl [FENTANYL] Allergy Intermediate UNKNOWN Verified 04/04/21 16:54 garlic [GARLIC] Allergy Unknown ANAPHYLAXIS Verified 04/04/21 16:54 mustard [MUSTARDS] Allergy Unknown ANAPHYLAXIS Verified 04/04/21 16:54 naproxen [NAPROXEN] Allergy Unknown UNKNOWN Verified 04/04/21 16:54 paroxetine [Paxil] Allergy Unknown Unknown Verified 04/04/21 16:54 penicillin V Allergy Unknown Unknown Verified 04/04/21 16:54 aspirin [ASA] AdvReac Intermediate HIVES, LIP Verified 04/04/21 16:54 SWELLING SUN Allergy Severe BLISTERS, Uncoded 01/12/21 00:15 ABD PAIN, DUE TO PORPHYRIA Active Medications: Current Medications Generic Name Dose Route Start Last Admin Trade Name Columba PRN Reason Stop Dose Admin Acetaminophen 650 mg 04/07/21 12:53 04/08/21 03:07 Acetaminophen 325 Mg Tablet PO 650 mg Q6H PRN Administration Pain, Mild (Pain Scale 1-3) Clonazepam 1 mg 04/08/21 08:00 Clonazepam 1 Mg Tablet PO TID PRN Anxiety Cyclobenzaprine HCl 10 mg 04/08/21 08:00 Cyclobenzaprine Hcl 10 Mg Tablet PO TID PRN Muscle Spasm Enoxaparin Sodium 40 mg 04/07/21 13:00 04/07/21 14:15 Enoxaparin Sodium 40 Mg/0.4 Ml Syringe SUBCUT 40 mg Q24H GOLDY Administration Fluoxetine HCl 60 mg 04/08/21 09:00 04/08/21 08:49 Fluoxetine Hcl 20 Mg Capsule PO 60 mg DAILY GOLDY Administration Guaifenesin/Dextromethorphan 10 ml 04/07/21 13:03 Guaifenesin Dm 200/20/10 Ml 10 Ml Syrup PO Q6H PRN cough Hydromorphone HCl 2 mg 04/07/21 13:01 04/08/21 08:42 Hydromorphone Hcl 2 Mg Tablet PO 2 mg Q4H PRN Administration Pain, Severe (Pain Scale 7-10) Hydroxyzine HCl 25 mg 04/08/21 21:00 Hydroxyzine Hcl 25 Mg Tablet PO BEDTIME GOLDY Levofloxacin 500 mg in 100 mls @ 100 mls/hr 04/08/21 09:00 04/08/21 09:57 Levaquin IV Infused Q24H GOLDY Infusion Levalbuterol HCl 1.25 mg 04/07/21 16:00 04/08/21 08:01 Levalbuterol Hcl 1.25 Mg/0.5 Ml Vial.Neb INHALE 1.25 mg RQ4H WHILE AWAKE GOLDY Administration Methylprednisolone Sodium Succinate 40 mg 04/07/21 13:00 04/08/21 04:38 Methylprednisolone Sod Succ 40 Mg/Ml Vial IV 40 mg Q8H GOLDY Administration Metoprolol Succinate 25 mg 04/08/21 09:00 04/08/21 08:49 Metoprolol Succinate Er 25 Mg Tab.Er.24h PO 25 mg DAILY GOLDY Administration Protocol Olanzapine 5 mg 04/08/21 09:00 04/08/21 08:48 Olanzapine 5 Mg Tablet PO 5 mg DAILY GOLDY Administration Ondansetron HCl 4 mg 04/07/21 12:53 Ondansetron Hcl 4 Mg/2 Ml Vial IVPUSH Q8H PRN Nausea and Vomiting Pharmacy Consult 1 each 04/07/21 12:58 Consult Rx Perform Med Rec MISCELLANE ONCE PRN Consult order Sodium Chloride 3 ml 04/07/21 16:00 04/08/21 08:49 0.9 % Sodium Chloride Flush 3 Ml Syringe IVFLUSH 3 ml QSHIFT GOLDY Administration Trazodone HCl 50 mg 04/08/21 21:00 Trazodone Hcl 50 Mg Tablet PO BEDTIME [facility] Home Medications Medication Instructions Recorded Confirmed Last Taken Type clonazepam 1 mg tablet 1 mg PO TID PRN 01/12/21 04/07/21 04/04/21 History cyclobenzaprine 10 mg tablet 10 mg PO TID PRN 01/12/21 04/07/21 04/04/21 History fluoxetine 20 mg capsule 60 mg PO DAILY 01/12/21 04/08/21 04/07/21 History hydroxyzine HCl 25 mg tablet 25 mg PO BEDTIME 01/12/21 04/07/21 04/07/21 History metoprolol succinate 25 mg 25 mg PO DAILY 01/12/21 04/07/21 04/07/21 History tablet,extended release 24 hr prednisone 20 mg tablet 20 mg PO DAILY 01/12/21 04/07/21 04/07/21 History sulfamethoxazole 800 1 tab PO MOWEFR 01/12/21 04/07/21 04/06/21 History mg-trimethoprim 160 mg tablet trazodone 50 mg tablet 50 mg PO BEDTIME 01/12/21 04/07/21 04/07/21 History hydromorphone 2 mg tablet 2 mg PO QID 04/04/21 04/07/21 04/07/21 History olanzapine 10 mg tablet 5 mg PO DAILY 04/04/21 04/07/21 04/07/21 History doxycycline hyclate 100 mg capsule 100 mg PO BID 04/07/21 04/07/21 04/07/21 History loratadine 10 mg tablet 10 mg PO DAILY 04/07/21 04/07/21 04/07/21 History Physical Exam Vital Signs: Vital Signs: Last Vital Signs Temp 97.8 F 04/08/21 07:53 Pulse 103 H 04/08/21 08:49 Resp 19 04/08/21 08:01 BP 133/96 H 04/08/21 08:49 Pulse Ox 98 04/08/21 07:53 Body Mass Index 25.3 Const: General: comfortable, no acute distress, alert and awake Orientation/consciousness: patient oriented x3 HENMT: Head: Yes normal to inspection General nose exam: No nasal polyps present and No nasal discharge present Face and sinus: Yes sinuses nontender Mouth: oropharynx normal Throat: Yes posterior oropharynx normal Eyes: General: appearance normal, both eyes and all related structures Neck: Neck: Yes normal visual inspection, Yes no lymphadenopathy, Yes trachea midline and Yes no JVD Thyroid: Thyroid normal Chest: Chest palpation & inspection: normal inspection of the chest, normal palpation of entire chest wall and no tenderness Resp: Other: BREATH SOUNDS ARE SOMEWHAT DISTANT ESPECIALLY OVER THE LOWER LOBE AREAS, NO WHEEZES. SHE DOES HAVE INSPIRATORY CREPITATIONS OVER THE LOWER LOBE AREAS, AND ALSO AT MID CHEST LEVEL. Cardio: Palpation: normal PMI Rate: regular rate and tachycardic Rhythm: regular rhythm Heart sounds: no gallops and no murmurs Peripheral pulses: Peripheral pulses 2+ throughout GI: Palpation (GI): Soft to palpation, nontender, No hepatosplenomegaly present and no masses Auscultation: normal bowel sounds Back/Spine/Pelvis: Thoracic/Lumbar Spine: thoracic and lumbar spine normal to inspection Skin: General skin exam: no rashes or lesions noted Neuro: General: patient oriented x3, no focal motor deficits and other (GENERAL MUSCULAR WEAKNESS IS PRESENT) Cranial nerves: Yes CN's II-XII intact bilaterally Extrem: General: Yes normal to inspection, Yes no clubbing, cyanosis or edema and Yes no calf tenderness Psych: Speech and movement: Normal speech and movement present Results Laboratory Findings CBC and BMP: 04/07/21 09:45 04/07/21 09:45 ABG, PT/INR, D-dimer: PT/INR, D-dimer PT 13.3 SEC (9.9-13.0) H 04/07/21 09:45 INR 1.2 (0.9-1.1) H 04/07/21 09:45 Abnormal lab findings: Abnormal Labs 04/07/21 04/07/21 04/07/21 09:34 09:45 09:45 WBC 22.9 H RBC 3.37 L Hgb 8.8 L Hct 28.3 L MCH 26.1 L MPV 8.2 L Immature Gran % (Auto) 0.9 H Neut % (Auto) 90.8 H Lymph % (Auto) 3.1 L Lymph # (Auto) 0.7 L Abs Immat Gran (auto) 0.21 H Absolute Neuts (auto) 20.8 H PT 13.3 H INR 1.2 H VBG HCO3 BUN Lactic Acid Lactic Acid Fup @ 2Hr Lactic Acid Fup @ 4Hr Total Protein U Marijuana (THC) Screen POSITIVE H 04/07/21 04/07/21 04/07/21 09:45 09:45 09:53 WBC RBC Hgb Hct MCH MPV Immature Gran % (Auto) Neut % (Auto) Lymph % (Auto) Lymph # (Auto) Abs Immat Gran (auto) Absolute Neuts (auto) PT INR VBG HCO3 27 H BUN 4 L Lactic Acid 5.0 H* Lactic Acid Fup @ 2Hr Lactic Acid Fup @ 4Hr Total Protein 6.0 L U Marijuana (THC) Screen 04/07/21 04/07/21 12:17 14:35 WBC RBC Hgb Hct MCH MPV Immature Gran % (Auto) Neut % (Auto) Lymph % (Auto) Lymph # (Auto) Abs Immat Gran (auto) Absolute Neuts (auto) PT INR VBG HCO3 BUN Lactic Acid Lactic Acid Fup @ 2Hr 4.2 H* Lactic Acid Fup @ 4Hr 3.7 H* Total Protein U Marijuana (THC) Screen Microbiology: Microbiology 04/07/21 08:00 Blood - Venous Blood Culture - Preliminary No growth after 24 hours. Diagnostic Findings Chest x-ray: image reviewed CT scan - chest: image reviewed Additional studies: I REVIEWED HER CHEST X-RAY AND CT SCAN, SHE HAS LOW LUNG VOLUMES, WITH MARKED CROWDING OF THE BRONCHOVASCULAR MARKINGS IN THE LOWER LOBES, AND BILATERAL FIBROTIC CHANGES. CT SCAN IS CONSISTENT WITH EXTENSIVE BILATERAL PULMONARY FIBROSIS WITH SUPER ADDED AREAS OF PNEUMONITIS. Assessment and Plan (1) Pulmonary fibrosis: Status: Acute PATIENT HAS ADVANCED BILATERAL PULMONARY FIBROSIS, PER HISTORY SECONDARY TO SCLERODERMA. CURRENTLY PATIENT ON PALLIATIVE CARE. KEEP HER ON IV SOLU-MEDROL 40 MG Q 8 HOURS FOR THE NEXT FEW DAYS AND THEN CHANGE TO PREDNISONE 40 MG A DAY. (2) Pneumonia: Status: Acute MOST LIKELY PATIENT HAS SUPER ADDED ACUTE PNEUMONITIS/PNEUMONIA, MAY BE SECONDARY TO RESPIRATORY INFECTION. I CONCUR WITH THE CURRENT TREATMENT WITH THE IV LEVAQUIN, FOR A FEW DAYS THEN MAY CHANGE TO ORAL, AND COMPLETE FOR ABOUT 10 DAYS. (3) Respiratory failure, acute and chronic: Status: Acute HIGH-FLOW O2 TO KEEP O2 SAT ABOVE 90%, SHE SHOWS CLINICAL IMPROVEMENT THIS MAY BE GRADUALLY WEANED DOWN AND GOAL SHOULD BE TO HAVE PATIENT ON NASAL CANNULA S 6 L/MINUTE. Procedures Date of Service Date of Service: 04/08/21
[2021-04-08] MEDS: Enoxaparin Sodium 40 MG/0.4 ML SYRINGE SUBCUT (12:56)
--- NOTE | 2021-04-08 13:17 | MHC.CLN ---
RE: CONSULT SEE CLINICAL NUTRITION ASSESSMENT
--- NOTE | 2021-04-08 16:04 | HO.PM.IMPN ---
Subjective Subjective Date of Service: 04/08/21 Interval History: Feeling better this a.m. less chest pain and shortness of breath, dry cough no other acute issues overnight. Review of Systems General no headache, no dizziness no fever chills. CVS no chest pain, no palpitation. Respiratory dry cough, no sputum production Gastrointestinal no nausea, no vomiting, no abdominal pain Physical Exam Vital Signs: Vital Signs: Last Vital Signs Temp 99.3 F 04/08/21 15:06 Pulse 106 H 04/08/21 15:06 Resp 19 04/08/21 15:06 BP 103/70 04/08/21 15:06 Pulse Ox 95 04/08/21 15:06 Body Mass Index 25.3 General no acute distress , talking in full sentences Neck supple no JVD. CVS? regular rate rhythm, Respiratory lungs coarse breath sounds, no respiratory distress, no wheeze, no rhonchi, no use of accessory muscles Gastrointestinal abdomen soft, nontender, bowel sounds audible,no guarding , no rigidity. Extremities no edema. Neuro nonfocal ,speech clear. Skin no rash Objective Data Current Medications Generic Name Dose Route Start Last Admin Trade Name Freq PRN Reason Stop Dose Admin Acetaminophen 650 mg 04/07/21 12:53 04/08/21 12:56 Acetaminophen 325 Mg Tablet PO 650 mg Q6H PRN Administration Pain, Mild (Pain Scale 1-3) Clonazepam 1 mg 04/08/21 08:00 Clonazepam 1 Mg Tablet PO TID PRN Anxiety Cyclobenzaprine HCl 10 mg 04/08/21 08:00 Cyclobenzaprine Hcl 10 Mg Tablet PO TID PRN Muscle Spasm Enoxaparin Sodium 40 mg 04/07/21 13:00 04/08/21 12:56 Enoxaparin Sodium 40 Mg/0.4 Ml Syringe SUBCUT 40 mg Q24H GOLDY Administration Fluoxetine HCl 60 mg 04/08/21 09:00 04/08/21 08:49 Fluoxetine Hcl 20 Mg Capsule PO 60 mg DAILY GOLDY Administration Guaifenesin/Dextromethorphan 10 ml 04/07/21 13:03 Guaifenesin Dm 200/20/10 Ml 10 Ml Syrup PO Q6H PRN cough Hydromorphone HCl 2 mg 04/07/21 13:01 04/08/21 12:55 Hydromorphone Hcl 2 Mg Tablet PO 2 mg Q4H PRN Administration Pain, Severe (Pain Scale 7-10) Hydroxyzine HCl 25 mg 04/08/21 21:00 Hydroxyzine Hcl 25 Mg Tablet PO BEDTIME COUNT INCLUDES THE [facility] Levofloxacin 500 mg in 100 mls @ 100 mls/hr 04/08/21 09:00 04/08/21 09:57 Levaquin IV Infused Q24H GOLDY Infusion Levalbuterol HCl 1.25 mg 04/07/21 16:00 04/08/21 14:55 Levalbuterol Hcl 1.25 Mg/0.5 Ml Vial.Neb INHALE 1.25 mg RQ4H WHILE AWAKE GOLDY Administration Methylprednisolone Sodium Succinate 40 mg 04/07/21 13:00 04/08/21 12:56 Methylprednisolone Sod Succ 40 Mg/Ml Vial IV 40 mg Q8H GOLDY Administration Metoprolol Succinate 25 mg 04/08/21 09:00 04/08/21 08:49 Metoprolol Succinate Er 25 Mg Tab.Er.24h PO 25 mg DAILY GOLDY Administration Protocol Olanzapine 5 mg 04/08/21 09:00 04/08/21 08:48 Olanzapine 5 Mg Tablet PO 5 mg DAILY COUNT INCLUDES THE [facility] Administration Ondansetron HCl 4 mg 04/07/21 12:53 Ondansetron Hcl 4 Mg/2 Ml Vial IVPUSH Q8H PRN Nausea and Vomiting Pharmacy Consult 1 each 04/07/21 12:58 Consult Rx Perform Med Rec MISCELLANE ONCE PRN Consult order Sodium Chloride 3 ml 04/07/21 16:00 04/08/21 08:49 0.9 % Sodium Chloride Flush 3 Ml Syringe IVFLUSH 3 ml QSHIFT COUNT INCLUDES THE [facility] Administration Trazodone HCl 50 mg 04/08/21 21:00 Trazodone Hcl 50 Mg Tablet PO BEDTIME COUNT INCLUDES THE [facility] Labs CBC & Chem 7: 04/07/21 09:45 04/07/21 09:45 Microbiology Microbiology Results: Microbiology 04/07/21 09:45 Blood Culture - Preliminary Blood - Venous No growth after 24 hours. 04/07/21 08:00 Blood Culture - Preliminary Blood - Venous No growth after 24 hours. Assessment and Plan (1) Respiratory failure, acute and chronic: Status: Acute (2) Pneumonia: Status: Acute (3) Seizure disorder: Status: Acute (4) History of interstitial lung disease: Status: Acute (5) Pulmonary fibrosis: Status: Acute (6) Chronic respiratory failure with hypoxia: Status: Acute Assessment and Plan: 45-year-old female with past medical history of pulmonary fibrosis/interstitial lung disease who is currently on palliative care and possibly going to hospice although she has not made a decision yet presents with fever, shortness of breath, cough, and intractable chest pain. # acute on chronic respiratory failure due to hosp. acquired pneumonia/ pulmonary fibrosis/ interstitial lung disease with hx of scleroderma ?? No recurrent bout of fever, worsening WBC due to steroids, clinically patient doing better less shortness of breath and less chest pain Continue high-flow oxygen and gradually wean to home dose of 6 L of oxygen Will continue IV Levaquin day 2, continue IV steroids and gradually wean to by mouth steroid, updraft treatment as needed and supportive care Blood cultures x2 are negative, COVID-19 negative Patient seen by Dr. Tadeo he agrees with above treatment. #. Sepsis due to pneumonia.? Resolving sepsis, leukocytosis secondary to steroid, lactic acid trending down continue IV antibiotic and supportive care #. Intractable pain with deep breathing.? Good pain control, patient use 2 mg of Dilaudid every 6 hours at home, will gradually wean down to home dose and recommend outpatient PCP follow up. Patient receives 1 week of narcotics by PCP. #. History of seizures.? Continue Keppra 500 mg b.i.d. take seizure precautions ? # PTSD - continue home medications DVT prophylaxis:? On Lovenox Quality Stroke Does the patient have a stroke diagnosis?: No VTE Prior VTE?: No VTE Risk Level:: Medical - moderate - high VTE Device Contraindication: Treatment Not Indicated VTE Drug Contraindication: N/A - Med Ordered
[2021-04-08] MEDS: clonazePAM 1 MG TABLET PO (18:02)
[2021-04-08] MEDS: hydrOXYzine HCL 25 MG TABLET PO (20:47)
[2021-04-08] MEDS: traZODone HCL 50 MG TABLET PO (20:47)
[2021-04-09] VITALS (14 sets, daily range): BP systolic 116–153; BP diastolic 65–73; PULSE 96–116; RESP 15–24; TEMP 36.1–38.2; O2SAT 89–96
[2021-04-09] MEDS: methylPREDNISolone Sod Succ 40 MG/ML VIAL IV (05:19)
[2021-04-09] MEDS: Omeprazole 20 MG CAPSULE.DR PO (05:19)
[2021-04-09] MEDS: HYDROmorphone HCl 2 MG TABLET PO ×4 (05:19→22:07)
[2021-04-09] MEDS: OLANZapine 5 MG TABLET PO (09:12)
[2021-04-09] MEDS: levoFLOXacin/D5W 500 MG/100 ML PIGGYBACK 100 MG IV (09:12)
[2021-04-09] MEDS: Metoprolol Succinate ER 25 MG TAB.ER.24H PO (09:12)
[2021-04-09] MEDS: clonazePAM 1 MG TABLET PO ×3 (09:12→23:09)
[2021-04-09] MEDS: FLUoxetine HCl 20 MG CAPSULE 60 MG PO (09:12)
[2021-04-09] MEDS: 0.9 % Sodium Chloride Flush 3 ML SYRINGE IVFLUSH ×3 (09:13→20:33)
--- NOTE | 2021-04-09 15:06 | HO.PM.IMPN ---
Subjective Subjective Date of Service: 04/09/21 Interval History: No acute complaints, complaining of persistent chest pain, no worsening shortness of breath, started her periods last night , no abdominal cramps. Review of Systems General no headache, no dizziness no fever chills.? CVS chronic persistent chest pain, no palpitation.? Respiratory dry cough, no sputum production , no worsening shortness of breath Gastrointestinal no nausea, no vomiting, no abdominal pain Physical Exam Vital Signs: Vital Signs: Last Vital Signs Temp 99.2 F 04/09/21 12:00 Pulse 102 H 04/09/21 14:38 Resp 18 04/09/21 14:38 BP 135/72 04/09/21 12:00 Pulse Ox 95 04/09/21 12:00 Body Mass Index 25.3 General awake alert no lethargy, Neck supple no JVD. CVS? regular rate rhythm, Respiratory lungs coarse breath sounds, mild respiratory distress with talking no wheeze, no rhonchi, no use of accessory muscles Gastrointestinal abdomen soft, nontender, bowel sounds audible,no guarding , no rigidity. Extremities no edema. Neuro nonfocal ,speech clear. Skin no rash Objective Data Current Medications Generic Name Dose Route Start Last Admin Trade Name Freq PRN Reason Stop Dose Admin Acetaminophen 650 mg 04/07/21 12:53 04/08/21 12:56 Acetaminophen 325 Mg Tablet PO 650 mg Q6H PRN Administration Pain, Mild (Pain Scale 1-3) Clonazepam 1 mg 04/08/21 08:00 04/09/21 09:12 Clonazepam 1 Mg Tablet PO 1 mg TID PRN Administration Anxiety Cyclobenzaprine HCl 10 mg 04/08/21 08:00 Cyclobenzaprine Hcl 10 Mg Tablet PO TID PRN Muscle Spasm Enoxaparin Sodium 40 mg 04/07/21 13:00 04/08/21 12:56 Enoxaparin Sodium 40 Mg/0.4 Ml Syringe SUBCUT 40 mg Q24H GOLDY Administration Fluoxetine HCl 60 mg 04/08/21 09:00 04/09/21 09:12 Fluoxetine Hcl 20 Mg Capsule PO 60 mg DAILY GOLDY Administration Guaifenesin/Dextromethorphan 10 ml 04/07/21 13:03 Guaifenesin Dm 200/20/10 Ml 10 Ml Syrup PO Q6H PRN cough Hydromorphone HCl 2 mg 04/08/21 16:05 04/09/21 11:08 Hydromorphone Hcl 2 Mg Tablet PO 2 mg Q5H PRN Administration Pain, Severe (Pain Scale 7-10) Hydroxyzine HCl 25 mg 04/08/21 21:00 04/08/21 20:47 Hydroxyzine Hcl 25 Mg Tablet PO 25 mg BEDTIME GOLDY Administration Levofloxacin 500 mg in 100 mls @ 100 mls/hr 04/08/21 09:00 04/09/21 12:05 Levaquin IV Infused Q24H GOLDY Infusion Levalbuterol HCl 1.25 mg 04/07/21 16:00 04/09/21 14:38 Levalbuterol Hcl 1.25 Mg/0.5 Ml Vial.Neb INHALE 1.25 mg RQ4H WHILE AWAKE GOLDY Administration Levetiracetam 500 mg 04/08/21 21:00 04/09/21 09:14 Levetiracetam 500 Mg Tablet PO Not Given BID GOLDY Methylprednisolone Sodium Succinate 40 mg 04/07/21 13:00 04/09/21 05:19 Methylprednisolone Sod Succ 40 Mg/Ml Vial IV 40 mg Q8H GOLDY Administration Metoprolol Succinate 25 mg 04/08/21 09:00 04/09/21 09:12 Metoprolol Succinate Er 25 Mg Tab.Er.24h PO 25 mg DAILY GOLDY Administration Protocol Olanzapine 5 mg 04/08/21 09:00 04/09/21 09:12 Olanzapine 5 Mg Tablet PO 5 mg DAILY GOLDY Administration Omeprazole 20 mg 04/09/21 06:30 04/09/21 05:19 Omeprazole 20 Mg Capsule.Dr PO 20 mg DAILY@0630 GOLDY Administration Ondansetron HCl 4 mg 04/07/21 12:53 Ondansetron Hcl 4 Mg/2 Ml Vial IVPUSH Q8H PRN Nausea and Vomiting Pharmacy Consult 1 each 04/07/21 12:58 Consult Rx Perform Med Rec MISCELLANE ONCE PRN Consult order Sodium Chloride 3 ml 04/07/21 16:00 04/09/21 09:13 0.9 % Sodium Chloride Flush 3 Ml Syringe IVFLUSH 3 ml QSHIFT GOLDY Administration Trazodone HCl 50 mg 04/08/21 21:00 04/08/21 20:47 Trazodone Hcl 50 Mg Tablet PO 50 mg BEDTIME GOLDY Administration Labs CBC & Chem 7: 04/07/21 09:45 04/07/21 09:45 Microbiology Microbiology Results: Microbiology 04/07/21 09:45 Blood Culture - Preliminary Blood - Venous No growth after 48 hours. 04/07/21 08:00 Blood Culture - Preliminary Blood - Venous No growth after 48 hours. Assessment and Plan (1) Respiratory failure, acute and chronic: Status: Acute (2) Pneumonia: Status: Acute (3) Seizure disorder: Status: Acute (4) History of interstitial lung disease: Status: Acute (5) Pulmonary fibrosis: Status: Acute (6) Chronic respiratory failure with hypoxia: Status: Acute Assessment and Plan: 45-year-old female with past medical history of pulmonary fibrosis/interstitial lung disease who is currently on palliative care and possibly going to hospice although she has not made a decision yet presents with fever, shortness of breath, cough, and intractable chest pain. # acute on chronic respiratory failure due to hosp. acquired pneumonia/ pulmonary fibrosis/ interstitial lung disease with hx of scleroderma ?? No recurrent bout of fever, worsening WBC due to steroids, clinically patient doing better less shortness of breath and less chest pain Continue high-flow oxygen and gradually wean to home dose of 6 L of oxygen ?? Will continue IV Levaquin day 3, continue IV steroids and gradually wean to by mouth steroid, updraft treatment as needed and supportive care ?? Blood cultures x2 are negative, COVID-19 negative ?? No significant change in last 24 hours. Continue current treatment and follow clinical course. #. Sepsis due to pneumonia.? ? ? Resolving sepsis, leukocytosis secondary to steroid, lactic acid trending down, continue IV antibiotic and supportive care #. Intractable pain with deep breathing.? Good pain control, patient use 2 mg of Dilaudid every 6 hours at home, will gradually wean down to home dose and recommend outpatient PCP follow up. ?? #. History of seizures.? Continue Keppra 500 mg b.i.d. take seizure precautions ? # PTSD - continue home medications DVT prophylaxis:? On Lovenox Quality Stroke Does the patient have a stroke diagnosis?: No VTE Prior VTE?: No VTE Risk Level:: Medical - moderate - high VTE Device Contraindication: Treatment Not Indicated VTE Drug Contraindication: N/A - Med Ordered
[2021-04-09] MEDS: Acetaminophen 325 MG TABLET 650 MG PO (15:46)
[2021-04-09] MEDS: methylPREDNISolone Sod Succ 40 MG/ML VIAL 60 MG IV ×2 (15:47→22:07)
[2021-04-09] MEDS: Enoxaparin Sodium 40 MG/0.4 ML SYRINGE SUBCUT (15:47)
[2021-04-09] MEDS: guaiFENesin DM 200/20/10 ML 10 ML SYRUP PO (15:49)
[2021-04-09] MEDS: ondansetron HCL 4 MG/2 ML VIAL IVPUSH (20:32)
[2021-04-09] MEDS: hydrOXYzine HCL 25 MG TABLET PO (20:33)
[2021-04-09] MEDS: traZODone HCL 50 MG TABLET PO (20:33)
[2021-04-10] VITALS (13 sets, daily range): BP systolic 135–160; BP diastolic 65–84; PULSE 84–100; RESP 15–24; TEMP 36.6–37.2; O2SAT 82–99
[2021-04-10 00:06] LABS: Glucose, Whole Blood 181 mg/dL (60-115)
[2021-04-10 00:15] LABS: ABG Base Excess 8.7 mmol/L; ABG HCO3 32 mmol/L (22-26); ABG pCO2 39 mmHg (32-45); ABG pCO2 TC 39 mmHg (32-45); ABG pH 7.51 (7.35-7.45); ABG pH TC 7.51 (7.35-7.45); ABG pO2 64 mmHg (83-108); ABG pO2 TC 65 (83-108)
--- NOTE | 2021-04-10 00:25 | PC.NURSE ---
patient rang call perales at approx 2350, this RN went into assess patient when she stated something is wrong. When asked what was wrong she went unresponsive. Patient was not responsive to sternal rub or calling of name. vitals taken: 146/84 RR24 P110 T98.9 o2 96% 50L 70%. POC 181. RESAW FEEDER was called. MD to bedside, ordered ABG, 0.4mg narcan IVP. Pt started to regain consciousness, continued somnolence. unable to remember where she was, the date, or what happened. Over the course of the next few minutes pt became orientedx4. Narcan to be held unless RR<12. 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 Dr. Tian spoke to patient about wishes and will speak to her again after pt speaks with Taran. [facility] is allowing to visit with patient after hours. This RN called and spoke to Taran regarding the situation and he agrees to come in. Pt said this episode has happened before, prior to this admission. She states it feels like the sandy are closing in on my and my eyelids get heavy and I can't breathe.
--- NOTE | 2021-04-10 01:32 | PC.NURSE ---
pt spoke with , she has made decision to become comfort measures. Dr. 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
[2021-04-10] MEDS: HYDROmorphone HCl 1 MG/ML SYRINGE IVPUSH ×5 (02:07→23:34)
--- NOTE | 2021-04-10 02:50 | PC.NURSE ---
Addendum entered by Cheyenne Guo RN 04/10/21 02:56: 4mg morphine IVP ordered q4hr Original Note: pt c/o 06/05 pain despite receiving 1mg prn dilauded at 0207. notified. Waiting for new orders.
[2021-04-10] MEDS: Morphine Sulfate 4 MG/ML CARTRIDGE IVPUSH ×2 (03:18→05:11)
--- NOTE | 2021-04-10 04:49 | PC.NURSE ---
Addendum entered by Cheyenne Guo RN 04/10/21 04:50: pt Taran (primary contact and HCP) reachable at [phone]. Phone listed on contacts unavailable with busy tone. Original Note: pt has given permission for her mother to be given information regarding her care. Sandy Vidal [phone].
--- NOTE | 2021-04-10 06:55 | P.EN_ITS ---
Event Note Date of Service: 04/10/21 Event Note: a rapid response was called on the patient for becoming unrespon sive. Patient hemodynamically stable. She was lethargic but arousable on sternal rub. After few minutes patient became more alert and oriented and immediately wanted to become comfortable. Patient denies feeling any chest pain, no change in her respiratory status, denies any numbness weakness, no abdominal pain nausea or vomiting. 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 I explained to her once again what it means to be comfort measures only and patient understands completely. her was called, he was seen with the patient at bedside, both Patient and her want patient to be comfort measures. patient will be started on pain medications to make her comfortable.
[2021-04-10] MEDS: ondansetron HCL 4 MG/2 ML VIAL IVPUSH ×2 (07:12→12:34)
--- NOTE | 2021-04-10 11:25 | MHC.CM.PN ---
Per MD's request, [facility] has reached out to [facility] and requested a Hospice Informational Session be conducted with Patient/;CINTIA awaits response.
[2021-04-10] MEDS: levoFLOXacin/D5W 500 MG/100 ML PIGGYBACK 100 MG IV (11:34)
[2021-04-10] MEDS: methylPREDNISolone Sod Succ 40 MG/ML VIAL 60 MG IV ×2 (11:34→19:44)
--- NOTE | 2021-04-10 11:54 | HO.PM.IMPN ---
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 Review of Systems General no headache, no dizziness no fever chills.? CVS chronic persistent chest pain, no palpitation.? Respiratory dry cough, persistent shortness of breath Gastrointestinal nausea, no abdominal pain Physical Exam Vital Signs: Vital Signs: Last Vital Signs Temp 98.9 F 04/10/21 00:13 Pulse 100 04/10/21 00:13 Resp 20 04/10/21 07:30 BP 146/84 H 04/10/21 00:13 Pulse Ox 96 04/10/21 00:13 Oxygen Flow Rate 50 04/10/21 00:13 Body Mass Index 25.3 General awake aler t, short of breath , no lethargy, Nec k supple no JVD. C VS? regular rate r hythm, Respiratory lungs coarse benjamin th sounds, diminis hed mild respirato ry distress with t alking no wheeze, no rhonchi, no use of accessory musc les Gastrointestin al abdomen soft, n ontender, bowel so unds audible,no gu arding , no rigidi ty. Extremities no edema. Neuro nonf ocal ,speech clear . Skin no rash Objective Data Current Medications Generic Name Dose Route Start Last Admin Trade Name Freq PRN Reason Stop Dose Admin Acetaminophen 650 mg 04/07/21 12:53 04/09/21 15:46 Acetaminophen 325 Mg Tablet PO 650 mg Q6H PRN Administration Pain, Mild (Pain Scale 1-3) Clonazepam 1 mg 04/08/21 08:00 04/09/21 23:09 Clonazepam 1 Mg Tablet PO 1 mg TID PRN Administration Anxiety Cyclobenzaprine HCl 10 mg 04/08/21 08:00 Cyclobenzaprine Hcl 10 Mg Tablet PO TID PRN Muscle Spasm Enoxaparin Sodium 40 mg 04/07/21 13:00 04/09/21 15:47 Enoxaparin Sodium 40 Mg/0.4 Ml Syringe SUBCUT 40 mg Q24H GOLDY Administration Fluoxetine HCl 60 mg 04/08/21 09:00 04/09/21 09:12 Fluoxetine Hcl 20 Mg Capsule PO 60 mg DAILY GOLDY Administration Guaifenesin/Dextromethorphan 10 ml 04/09/21 15:30 04/10/21 04:38 Guaifenesin Dm 200/20/10 Ml 10 Ml Syrup PO Not Given Q6H GOLDY Hydromorphone HCl 1 mg 04/10/21 01:30 04/10/21 11:09 Hydromorphone Hcl 1 Mg/Ml Syringe IVPUSH 1 mg Q4H PRN Administration Discomfort/Shortness of breath Hydroxyzine HCl 25 mg 04/08/21 21:00 04/09/21 20:33 Hydroxyzine Hcl 25 Mg Tablet PO 25 mg BEDTIME GOLDY Administration Levofloxacin 500 mg in 100 mls @ 100 mls/hr 04/08/21 09:00 04/10/21 11:34 Levaquin IV 100 mls/hr Q24H GOLDY Administration Levalbuterol HCl 1.25 mg 04/07/21 16:00 04/10/21 10:47 Levalbuterol Hcl 1.25 Mg/0.5 Ml Vial.Neb INHALE 1.25 mg RQ4H WHILE AWAKE GOLDY Administration Levetiracetam 500 mg 04/08/21 21:00 04/09/21 20:33 Levetiracetam 500 Mg Tablet PO Not Given BID GOLDY Lorazepam 0.5 mg 04/10/21 01:30 Lorazepam 0.5 Mg Tablet SUBLINGUAL Q4H PRN anxiety/restlessness Methylprednisolone Sodium Succinate 60 mg 04/09/21 15:17 04/10/21 11:34 Methylprednisolone Sod Succ 40 Mg/Ml Vial IV 60 mg Q8H GOLDY Administration Metoprolol Succinate 25 mg 04/08/21 09:00 04/09/21 09:12 Metoprolol Succinate Er 25 Mg Tab.Er.24h PO 25 mg DAILY GOLDY Administration Protocol Olanzapine 5 mg 04/08/21 09:00 04/09/21 09:12 Olanzapine 5 Mg Tablet PO 5 mg DAILY GOLDY Administration Omeprazole 20 mg 04/09/21 06:30 04/10/21 04:56 Omeprazole 20 Mg Capsule.Dr PO Not Given DAILY@0630 [facility] Ondansetron HCl 4 mg 04/07/21 12:53 04/10/21 07:12 Ondansetron Hcl 4 Mg/2 Ml Vial IVPUSH 4 mg Q8H PRN Administration Nausea and Vomiting Pharmacy Consult 1 each 04/07/21 12:58 Consult Rx Perform Med Rec MISCELLANE ONCE PRN Consult order Sodium Chloride 3 ml 04/07/21 16:00 04/09/21 20:33 0.9 % Sodium Chloride Flush 3 Ml Syringe IVFLUSH 3 ml QSHIFT GOLDY Administration Trazodone HCl 50 mg 04/08/21 21:00 04/09/21 20:33 Trazodone Hcl 50 Mg Tablet PO 50 mg BEDTIME GOLDY Administration Labs CBC & Chem 7: 04/07/21 09:45 04/07/21 09:45 Labs: Laboratory Results - last 24 hr 04/10/21 04/10/21 00:02 00:06 O2 Saturation 90.0 ABG pH at Pt Temp 7.51 H ABG pH (Temp Correct) 7.51 H ABG pCO2 at Pt Temp 39 ABG pCO2 (Temp Corrct 39 ABG pO2 at Pt Temp 64 L ABG pO2 (Temp Correct 65 L ABG HCO3 32 H ABG Base Excess (Actual) 8.7 POC Glucose 181 H Microbiology Microbiology Results: Microbiology 04/07/21 09:45 Blood Culture - Preliminary Blood - Venous No growth after 48 hours. 04/07/21 08:00 Blood Culture - Preliminary Blood - Venous No growth after 48 hours. Assessment and Plan (1) Respiratory failure, acute and chronic: Status: Acute (2) Pneumonia: Status: Acute (3) Seizure disorder: Status: Acute (4) Intractable pain: Status: Acute (5) History of interstitial lung disease: Status: Acute (6) Pulmonary fibrosis: Status: Acute (7) Chronic respiratory failure with hypoxia: Status: Acute Assessment and Plan: 45-year-old female with past medical history of pulmonary fibrosis/interstitial lung disease who is currently on palliative care and possibly going to hospice although she has not made a decision yet presents with fever, shortness of breath, cough, and intractable chest pain. # acute on chronic respiratory failure due to hosp. acquired pneumonia/ pulmonary fibrosis/ interstitial lung disease with hx of scleroderma. Persistent shortness of breath and chest pain, feels nauseous this a.m. likely due to narcotic ?? No recurrent bout of fever, worsening WBC due to steroids, ?? Continue high-flow oxygen and gradually wean to home dose of 6 L of oxygen ?? continue IV Levaquin day 12/04, continue IV steroids lower dose today and gradually wean to by mouth prednisone 40 mg daily, updraft treatment as needed and supportive care ?? Blood cultures x2 are negative, COVID-19 negative ?? Continue current treatment and follow clinical course. Patient seen by Dr. Tadeo he agrees with above treatment. Discuss code status with patient and her at bedside, last night patient had an episode of unresponsiveness likely due to narcotics, after that episode patient and decided her to be CLINICAL MENTAL HEALTH COUNSELOR, but this morning said he did not understand clearly about CLINICAL MENTAL HEALTH COUNSELOR he would like her under hospice care patient also agreed with the , explained to them that CLINICAL MENTAL HEALTH COUNSELOR means completely stopping all treatment and being only on medications for comfort including morphine and Ativan and under hospice care will continue the updraft treatment and steroid Spoke with caseworker and will obtain hospice consult, patient under care of [facility] services/palliative care Will resume cardiac rehab nurse and oximetry Patient follows by almond grinder neurologist and primary care physician from [facility], patient receives 1 week worth of Dilaudid 2 mg 4 times per day from primary care physician Spoke with patient's siter Rachel [phone] at request of patient and her , and updated her about patient's clinical condition. #. Sepsis due to pneumonia.? ? ? Resolving sepsis, leukocytosis secondary to steroid, lactic acid trending down, continue IV antibiotic and supportive care #. Intractable pain with deep breathing.? Good pain control, patient use 2 mg of Dilaudid every 6 hours at home, will gradually wean down to home dose and recommend outpatient PCP follow up. ?? #. History of seizures.? Continue Keppra 500 mg b.i.d. take seizure precautions ? # PTSD - continue home medications DVT prophylaxis:? On Lovenox Quality Stroke Does the patient have a stroke diagnosis?: No VTE Prior VTE?: No VTE Risk Level:: Medical - moderate - high VTE Device Contraindication: Treatment Not Indicated VTE Drug Contraindication: N/A - Med Ordered
[2021-04-10] MEDS: FLUoxetine HCl 20 MG CAPSULE 60 MG PO (12:09)
[2021-04-10] MEDS: Metoprolol Succinate ER 25 MG TAB.ER.24H PO (12:09)
[2021-04-10] MEDS: Enoxaparin Sodium 40 MG/0.4 ML SYRINGE SUBCUT (12:09)
[2021-04-10] MEDS: OLANZapine 5 MG TABLET PO (12:09)
[2021-04-10] MEDS: Acetaminophen 325 MG TABLET 650 MG PO ×2 (12:09→20:56)
[2021-04-10] MEDS: 0.9 % Sodium Chloride Flush 3 ML SYRINGE IVFLUSH ×3 (12:10→23:34)
[2021-04-10] MEDS: traZODone HCL 50 MG TABLET PO (20:56)
[2021-04-10] MEDS: clonazePAM 1 MG TABLET PO (20:56)
[2021-04-10] MEDS: hydrOXYzine HCL 25 MG TABLET PO (20:56)
[2021-04-11] VITALS (15 sets, daily range): BP systolic 124–158; BP diastolic 60–73; PULSE 72–112; RESP 15–20; TEMP 36.6–37.3; O2SAT 87–99
--- NOTE | 2021-04-11 05:03 | PC.NURSE ---
Pt A&O x3. Maintained on high flow O2. Currently at 90%/50L. Desats quickly to as low as 82% if canulla out of nose. Taking dilaudid prn for pleuritic pain with good effect. . Bp stable. Refusing keppra. Sleeping in naps.
[2021-04-11] MEDS: Omeprazole 20 MG CAPSULE.DR PO (05:26)
[2021-04-11] MEDS: HYDROmorphone HCl 1 MG/ML SYRINGE IVPUSH ×5 (05:27→22:26)
[2021-04-11] MEDS: methylPREDNISolone Sod Succ 40 MG/ML VIAL 60 MG IV (05:31)
[2021-04-11] MEDS: 0.9 % Sodium Chloride Flush 3 ML SYRINGE IVFLUSH ×2 (09:55→16:46)
[2021-04-11] MEDS: levoFLOXacin/D5W 500 MG/100 ML PIGGYBACK 100 MG IV (09:57)
[2021-04-11] MEDS: FLUoxetine HCl 20 MG CAPSULE 60 MG PO (09:59)
[2021-04-11] MEDS: OLANZapine 5 MG TABLET PO (09:59)
[2021-04-11] MEDS: Metoprolol Succinate ER 25 MG TAB.ER.24H PO (10:00)
[2021-04-11] MEDS: clonazePAM 1 MG TABLET PO ×2 (10:06→20:34)
--- NOTE | 2021-04-11 10:06 | P.PNPL_ITS ---
Subjective Subjective Date of Service: 04/11/21 Interval history: The patient was seen and examined. Currently on high-flow 80% oxygen on 50 L. after this long bout illness the patient has requested to go on hospice. She does not want to consider lung transplant. We did talk about medications such as OFEV, but the patient at this point is adamant that she wants to go on hospice. She is willing to try the Oxymizer pendant although not sure if we have 1 available as the may be on back order. The other option is try high-flow. Will continue to titrate her down as possible. Although may be difficult to get her to a reasonable dose to be able to do hospice at. Patient also can consider noninvasive ventilation to BiPAP that could also be set up with hospice. Objective Data Labs CBC & Chem 7: 04/07/21 09:45 04/07/21 09:45 Microbiology Microbiology Results: Microbiology 04/07/21 09:45 Blood - Venous Blood Culture - Preliminary No growth after 48 hours. 04/07/21 08:00 Blood - Venous Blood Culture - Preliminary No growth after 48 hours. Review of Systems Review of Systems Constitutional : No Weight loss complaining of fever and chills, No Night Sweats, complaining of chronic fatigue, malaise ENT/Mouth : No Hearing loss, No Ear Pain, No Nasal Congestion, No Sinus Pain, No Hoarseness, No sore throat, No Rhinorrhea, No Swallowing Difficulty Eyes: No Eye Pain, No Swelling, No Redness, No Foreign Body, No Discharge, No Vi precious Changes Cardiovascular : Complaining of chronic Chest Pain, unchanged since left against medical advice, complaining of worsening shortness of breath Respiratory : Has chronic Cough, chronic dyspnea Gastrointestinal : No Nausea, No Vomiting, No Diarrhea, No Constipation, No abdominal Pain, No Hematochezia, No Melena Genitourinary : no irregular bleeding, No Dysuria, No Urinary Frequency, No Hematuria, No Urinary Incontinence, No Urgency, No Flank Pain, No Urinary Flow Changes, No Hesitancy Musculoskeletal : No joint pain, complaining of generalized myalgias, No Joint Swelling Skin : No Skin Lesions, No rash Neuro : No Weakness, No Numbness, No Paresthesias, No Loss of Consciousness, No Dizziness, No Headache Psych : No SI/HI/AH/VH, No Social Issues, Heme/Lymph: No Bruising, No Bleeding,No Lymphadenopathy Endocrine : No Polyuria, No Polydipsia, No Temperature Intolerance Physical Exam Vital Signs: Vital Signs: Last Vital Signs Temp 99.2 F 04/11/21 07:44 Pulse 88 04/11/21 10:00 Resp 20 04/11/21 08:12 BP 140/68 H 04/11/21 10:00 Pulse Ox 99 04/11/21 07:44 Oxygen Flow Rate 50 04/10/21 00:13 Body Mass Index 25.3 Const: General: alert Neck: Neck: Yes normal visual inspection, Yes full ROM and Yes no lymphadenopathy Chest: Chest palpation & inspection: normal inspection of the chest Resp: Auscultation: crackles and diminished lung sounds Cardio: Rate: regular rate Rhythm: regular rhythm Heart sounds: S1 normal heart sound present and S2 normal heart sound present GI: Palpation (GI): Soft to palpation and nontender Auscultation: normal bowel sounds Skin: General skin exam: rashes and/or lesions noted Procedures Date of Service Date of Service: 04/11/21 Assessment and Plan Assessment and plan (1) Respiratory failure, acute and chronic: Status: Acute (2) Pneumonia: Status: Acute (3) Pulmonary fibrosis: Status: Acute (4) Scleroderma involving lung: Status: Acute Assessment and Plan: I am meeting the patient for the 1st time. She does have extensive pulmonary involvement due to her scleroderma and potentially could also be having super imposed pneumonitis due to a recent viral illness. Patient is adamant about going on hospice. She does not want to struggle with his her medical illness any longer. At the same time the patient is not able to make it to hospice in view of the high oxygen demand. Patient can also consider inpatient comfort measures only if were not able to decrease her oxygen therapy. Recommendations: -pulse dose steroids to try to improve her respiratory status -continue to wean down oxygen supplementation as tolerated to maintain a pulse ox above 90% -patient could consider BiPAP at for comfort if it comes to needing additional respiratory therapies Time Spent With Patient Time: Total time spent is greater than 50% in coordination of care (as documented) at patient's floor/unit and/or counseling patient: Time with patient: 25 - 35 minutes Progress Note: Quality Stroke Does the patient have a stroke diagnosis?: No
--- NOTE | 2021-04-11 11:26 | MHC.CLN ---
F/U PO INTAKE 50/100% DIET RX: REGULAR-APPROPRIATE PT POSSIBLY SWITCHING TO HOSPICE SERVICES FOLLOWING WITH TEAM
[2021-04-11] MEDS: methylPREDNISolone Sod Succ 1,000 MG in 0.9 % Sodium Chloride 50 ML 66 MG IV (11:33)
--- NOTE | 2021-04-11 12:54 | PM.IMPN ---
Progress Note: A&P (1) Scleroderma involving lung: Status: Acute (2) Respiratory failure, acute and chronic: Status: Acute Assessment and Plan: 45-year-old female with past medical history of pulmonary fibrosis/interstitial lung disease who is currently on palliative care and possibly going to hospice although she has not made a decision yet presents with fever, shortness of breath, cough, and intractable chest pain. # acute on chronic respiratory failure due to hosp. acquired pneumonia/ pulmonary fibrosis/ interstitial lung disease with hx of scleroderma. ?? Persistent shortness of breath and chest pain, feels nauseous this a.m. likely due to narcotic ?? No recurrent bout of fever, worsening WBC due to steroids, ?? Continue high-flow oxygen and gradually wean to home dose of 6 L of oxygen ?? continue IV Levaquin continue IV steroids lower dose today and gradually wean to by mouth prednisone 40 mg daily, updraft treatment as needed and supportive care ?? Blood cultures x2 are negative, COVID-19 negative ?? Continue current treatment and follow clinical course. ?? Patient [facility] by Dr. Tadeo [facility] ?? #. Sepsis due to pneumonia.? ? ? Resolving sepsis, leukocytosis secondary to steroid, lactic acid trending down, continue IV antibiotic and supportive care #. Intractable pain with deep breathing.? Good pain control, patient use 2 mg of Dilaudid every 6 hours at home will gradually wean down to home dose and recommend outpatient PCP follow up. ?? #. History of seizures.? Continue Keppra 500 mg b.i.d. take seizure precautions ? # PTSD continue home medications DVT prophylaxis:? On Lovenox Subjective Subjective Date of Service: 04/11/21 Interval History: no events overnight still requiring high flow no pain Physical Exam Vital Signs: Vital Signs: Last Vital Signs Temp 99.2 F 04/11/21 07:44 Pulse 88 04/11/21 10:00 Resp 20 04/11/21 11:55 BP 140/68 H 04/11/21 10:00 Pulse Ox 99 04/11/21 07:44 Oxygen Flow Rate 50 04/10/21 00:13 Body Mass Index 25.3 Appearing in no acute distress lungs normal expansion heart regular rate rhythm, clear S1, S2 positive bowel sounds, abdomen is soft, nontender neuro patient is alert x3, no focal deficits Objective Data Current Medications Generic Name Dose Route Start Last Admin Trade Name Basilioq PRN Reason Stop Dose Admin Acetaminophen 650 mg 04/07/21 12:53 04/10/21 20:56 Acetaminophen 325 Mg Tablet PO 650 mg Q6H PRN Administration Pain, Mild (Pain Scale 1-3) Clonazepam 1 mg 04/08/21 08:00 04/11/21 10:06 Clonazepam 1 Mg Tablet PO 1 mg TID PRN Administration Anxiety Cyclobenzaprine HCl 10 mg 04/08/21 08:00 Cyclobenzaprine Hcl 10 Mg Tablet PO TID PRN Muscle Spasm Enoxaparin Sodium 40 mg 04/07/21 13:00 04/10/21 12:09 Enoxaparin Sodium 40 Mg/0.4 Ml Syringe SUBCUT 40 mg Q24H GOLDY Administration Fluoxetine HCl 60 mg 04/08/21 09:00 04/11/21 09:59 Fluoxetine Hcl 20 Mg Capsule PO 60 mg DAILY GOLDY Administration Guaifenesin/Dextromethorphan 10 ml 04/09/21 15:30 04/11/21 10:00 Guaifenesin Dm 200/20/10 Ml 10 Ml Syrup PO Not Given Q6H GOLDY Hydromorphone HCl 1 mg 04/10/21 01:30 04/11/21 09:54 Hydromorphone Hcl 1 Mg/Ml Syringe IVPUSH 1 mg Q4H PRN Administration Discomfort/Shortness of breath Hydroxyzine HCl 25 mg 04/08/21 21:00 04/10/21 20:56 Hydroxyzine Hcl 25 Mg Tablet PO 25 mg BEDTIME GOLDY Administration Levofloxacin 500 mg in 100 mls @ 100 mls/hr 04/08/21 09:00 04/11/21 11:00 Levaquin IV Infused Q24H GOLDY Infusion Methylprednisolone Sodium 66 mls @ 66 mls/hr 04/11/21 11:00 04/11/21 11:33 Succinate 1,000 mg/ Sodium IV 66 mls/hr Chloride Q24H GOLDY Administration Levalbuterol HCl 1.25 mg 04/07/21 16:00 04/11/21 11:51 Levalbuterol Hcl 1.25 Mg/0.5 Ml Vial.Neb INHALE 1.25 mg RQ4H WHILE AWAKE GOLDY Administration Levetiracetam 500 mg 04/08/21 21:00 04/11/21 09:59 Levetiracetam 500 Mg Tablet PO Not Given BID [facility] Lorazepam 0.5 mg 04/10/21 01:30 Lorazepam 0.5 Mg Tablet SUBLINGUAL Q4H PRN anxiety/restlessness Metoprolol Succinate 25 mg 04/08/21 09:00 04/11/21 10:00 Metoprolol Succinate Er 25 Mg Tab.Er.24h PO 25 mg DAILY GOLDY Administration Protocol Olanzapine 5 mg 04/08/21 09:00 04/11/21 09:59 Olanzapine 5 Mg Tablet PO 5 mg DAILY GOLDY Administration Omeprazole 20 mg 04/09/21 06:30 04/11/21 05:26 Omeprazole 20 Mg Capsule.Dr PO 20 mg DAILY@0630 [facility] Administration Ondansetron HCl 4 mg 04/10/21 12:23 04/10/21 12:34 Ondansetron Hcl 4 Mg/2 Ml Vial IVPUSH 4 mg Q6H PRN Administration Nausea and Vomiting Pharmacy Consult 1 each 04/07/21 12:58 Consult Rx Perform Med Rec MISCELLANE ONCE PRN Consult order Sodium Chloride 3 ml 04/07/21 16:00 04/11/21 09:55 0.9 % Sodium Chloride Flush 3 Ml Syringe IVFLUSH 3 ml QSHIFT [facility] Administration Trazodone HCl 50 mg 04/08/21 21:00 04/10/21 20:56 Trazodone Hcl 50 Mg Tablet PO 50 mg BEDTIME GOLDY Administration Labs CBC & Chem 7: 04/07/21 09:45 04/07/21 09:45 Microbiology Microbiology Results: Microbiology 04/07/21 09:45 Blood - Venous Blood Culture - Preliminary No growth after 48 hours. 04/07/21 08:00 Blood - Venous Blood Culture - Preliminary No growth after 48 hours. Quality Stroke Does the patient have a stroke diagnosis?: No VTE Prior VTE?: No VTE Risk Level:: Medical - moderate - high VTE Device Contraindication: Treatment Not Indicated VTE Drug Contraindication: N/A - Med Ordered
[2021-04-11] MEDS: Enoxaparin Sodium 40 MG/0.4 ML SYRINGE SUBCUT (14:21)
[2021-04-11] MEDS: hydrOXYzine HCL 25 MG TABLET PO (20:32)
[2021-04-11] MEDS: traZODone HCL 50 MG TABLET PO (20:32)
[2021-04-12] VITALS (10 sets, daily range): BP systolic 125–136; BP diastolic 67–71; PULSE 70–82; RESP 18–22; TEMP 35.9–36.3; O2SAT 89–98
[2021-04-12] MEDS: 0.9 % Sodium Chloride Flush 3 ML SYRINGE IVFLUSH ×2 (00:54→09:32)
[2021-04-12] MEDS: Cyclobenzaprine HCl 10 MG TABLET PO ×2 (04:15→17:58)
[2021-04-12] MEDS: HYDROmorphone HCl 1 MG/ML SYRINGE IVPUSH ×3 (06:42→15:41)
[2021-04-12] MEDS: Omeprazole 20 MG CAPSULE.DR PO (06:43)
[2021-04-12 08:32] LABS: Hematocrit 28.6 % (37-47); Hemoglobin 8.6 g/dl (12.0-16.0); Mean Corpuscular HGB Conc 30.1 g/dl (31.0-35.0); Mean Corpuscular Hemoglobin 25.4 pg (27.0-33.0); Mean Corpuscular Volume 84.4 fL (80-98); Mean Platelet Volume 8.4 fL (9.4-12.3); NRBC Pct Auto 0.2 /100WBC (0.0-0.2); Platelet Count 418 X10*3/uL (160-400); Red Blood Count 3.39 X10*6/uL (4.20-5.50); Red Cell Distribution Width 15.6 % (11.0-16.0); White Blood Count 18.5 X10*3/uL (4.8-10.8)
[2021-04-12 08:56] LABS: Anion Gap 13 (12-20); Blood Urea Nitrogen 18 mg/dL (9-16); Calcium 8.9 mg/dL (8.4-10.2); Carbon Dioxide 35 mmol/L (22-29); Chloride 95 mmol/L (96-108); Creatinine Clr Calc Pharmacy 101.2; Estimated Glomerular Filt Rate > 60; Glucose Random 158 mg/dL (60-115); Potassium 4.2 mmol/L (3.3-5.1); Sodium 139 mmol/L (135-145)
[2021-04-12] MEDS: OLANZapine 5 MG TABLET PO (09:32)
[2021-04-12] MEDS: FLUoxetine HCl 20 MG CAPSULE 60 MG PO (09:32)
[2021-04-12] MEDS: levETIRAcetam 500 MG TABLET PO (09:32)
[2021-04-12] MEDS: Metoprolol Succinate ER 25 MG TAB.ER.24H PO (09:33)
[2021-04-12] MEDS: levoFLOXacin/D5W 500 MG/100 ML PIGGYBACK 100 MG IV (09:50)
[2021-04-12] MEDS: clonazePAM 1 MG TABLET PO ×2 (10:31→22:28)
--- NOTE | 2021-04-12 11:20 | PM.IMPN ---
Progress Note: A&P Assessment and Plan: 45-year-old female with past medical history of pulmonary fibrosis/interstitial lung disease who is currently on palliative care and possibly going to hospice although she has not made a decision yet presents with fever, shortness of breath, cough, and intractable chest pain. # acute on chronic respiratory failure due to hosp. acquired pneumonia/ pulmonary fibrosis/ interstitial lung disease with hx of scleroderma. ?? Continue high-flow oxygen, NRB mask added over night due to hypoxia ?? continue IV Levaquin Solumedrol 1g for 3 days check echo for pulm htn exacerbating symptoms ?? Blood cultures x2 are negative, COVID-19 negative ?? [facility] services/palliative care/hospice referral, does not qualify at this time d/t high oxygen demand ?? #. Sepsis due to pneumonia.? ? ? Resolving sepsis, leukocytosis secondary to steroid, lactic acid trending down, continue IV antibiotic and supportive care #. Intractable pain with deep breathing.? Good pain control, patient use 2 mg of Dilaudid every 6 hours at home ?will gradually wean down to home dose and recommend outpatient PCP follow up. ?? #. History of seizures.?No seizures Continue Keppra 500 mg b.i.d. take seizure precautions ? # PTSD continue home medications DVT prophylaxis:? On Lovenox <Lanie Ayala NP - Last Filed: 04/12/21 11:24> Subjective Subjective Date of Service: 04/12/21 <Lanie Ayala NP - Last Filed: 04/12/21 11:24> 04/15/21 <Paul Richards MD - Last Filed: 04/15/21 16:10> Interval History: Follow up resp failure still requiring high flow and now NRB <Lanie Ayala NP - Last Filed: 04/12/21 11:24> Physical Exam Vital Signs: Vital Signs: Last Vital Signs Temp 97.0 F 04/12/21 07:56 Pulse 77 04/12/21 07:56 Resp 20 04/12/21 10:52 BP 132/70 04/12/21 09:33 Pulse Ox 96 04/12/21 07:56 Oxygen Flow Rate 50 04/10/21 00:13 Body Mass Index 25.3 <Lanie Ayala NP - Last Filed: 04/12/21 11:24> Appearing in no acute distress, high flow and NRB lungs normal expansion heart regular rate rhythm, clear S1, S2 positive bowel sounds, abdomen is soft, nontender neuro patient is alert x3, no focal deficits <Lanie Ayala NP - Last Filed: 04/12/21 11:24> Objective Data Current Medications Generic Name Dose Route Start Last Admin Trade Name Freq PRN Reason Stop Dose Admin Acetaminophen 650 mg 04/07/21 12:53 04/10/21 20:56 Acetaminophen 325 Mg Tablet PO 650 mg Q6H PRN Administration Pain, Mild (Pain Scale 1-3) Clonazepam 1 mg 04/08/21 08:00 04/12/21 10:31 Clonazepam 1 Mg Tablet PO 1 mg TID PRN Administration Anxiety Cyclobenzaprine HCl 10 mg 04/08/21 08:00 04/12/21 04:15 Cyclobenzaprine Hcl 10 Mg Tablet PO 10 mg TID PRN Administration Muscle Spasm Enoxaparin Sodium 40 mg 04/07/21 13:00 04/11/21 14:21 Enoxaparin Sodium 40 Mg/0.4 Ml Syringe SUBCUT 40 mg Q24H GOLDY Administration Fluoxetine HCl 60 mg 04/08/21 09:00 04/12/21 09:32 Fluoxetine Hcl 20 Mg Capsule PO 60 mg DAILY GOLDY Administration Guaifenesin/Dextromethorphan 10 ml 04/09/21 15:30 04/12/21 09:56 Guaifenesin Dm 200/20/10 Ml 10 Ml Syrup PO Not Given Q6H GOLDY Hydromorphone HCl 1 mg 04/10/21 01:30 04/12/21 10:31 Hydromorphone Hcl 1 Mg/Ml Syringe IVPUSH 1 mg Q4H PRN Administration Discomfort/Shortness of breath Hydroxyzine HCl 25 mg 04/08/21 21:00 04/11/21 20:32 Hydroxyzine Hcl 25 Mg Tablet PO 25 mg BEDTIME GOLDY Administration Levofloxacin 500 mg in 100 mls @ 100 mls/hr 04/08/21 09:00 04/12/21 10:57 Levaquin IV Infused Q24H GOLDY Infusion Methylprednisolone Sodium 66 mls @ 66 mls/hr 04/11/21 11:00 04/11/21 13:05 Succinate 1,000 mg/ Sodium IV Infused Chloride Q24H GOLDY Infusion Levalbuterol HCl 1.25 mg 04/07/21 16:00 04/12/21 10:50 Levalbuterol Hcl 1.25 Mg/0.5 Ml Vial.Neb INHALE 1.25 mg RQ4H WHILE AWAKE GOLDY Administration Levetiracetam 500 mg 04/08/21 21:00 04/12/21 09:32 Levetiracetam 500 Mg Tablet PO 500 mg BID GOLDY Administration Lorazepam 0.5 mg 04/10/21 01:30 Lorazepam 0.5 Mg Tablet SUBLINGUAL Q4H PRN anxiety/restlessness Metoprolol Succinate 25 mg 04/08/21 09:00 04/12/21 09:33 Metoprolol Succinate Er 25 Mg Tab.Er.24h PO 25 mg DAILY GOLDY Administration Protocol Olanzapine 5 mg 04/08/21 09:00 04/12/21 09:32 Olanzapine 5 Mg Tablet PO 5 mg DAILY GOLDY Administration Omeprazole 20 mg 04/09/21 06:30 04/12/21 06:43 Omeprazole 20 Mg Capsule.Dr PO 20 mg DAILY@0630 GOLDY Administration Ondansetron HCl 4 mg 04/10/21 12:23 04/10/21 12:34 Ondansetron Hcl 4 Mg/2 Ml Vial IVPUSH 4 mg Q6H PRN Administration Nausea and Vomiting Pharmacy Consult 1 each 04/07/21 12:58 Consult Rx Perform Med Rec MISCELLANE ONCE PRN Consult order Sodium Chloride 3 ml 04/07/21 16:00 04/12/21 09:32 0.9 % Sodium Chloride Flush 3 Ml Syringe IVFLUSH 3 ml QSHIFT GOLDY Administration Trazodone HCl 50 mg 04/08/21 21:00 04/11/21 20:32 Trazodone Hcl 50 Mg Tablet PO 50 mg BEDTIME GOLDY Administration <Lanie Ayala NP - Last Filed: 04/12/21 11:24> Labs CBC & Chem 7: : 04/13/21 13:58 04/13/21 13:57 <Lanie Ayala NP - Last Filed: 04/12/21 11:24> Labs: Laboratory Results - last 24 hr 04/12/21 04/12/21 08:15 08:15 MCV 84.4 MCH 25.4 L MCHC 30.1 L RDW 15.6 Plt Count 418 H MPV 8.4 L Absolute Nucleated RBC 0.040 H Nucleated RBC % (auto) 0.2 Anion Gap 13 Estim Creat Clear Calc 101.2 Estimated GFR > 60 Random Glucose 158 H D Calcium 8.9 <Lanie Ayala NP - Last Filed: 04/12/21 11:24> Microbiology Microbiology Results: Microbiology 04/07/21 08:00 Blood - Venous Blood Culture - Final No growth after 5 days. 04/07/21 09:45 Blood - Venous Blood Culture - Preliminary No growth after 48 hours. <Lanie Ayala NP - Last Filed: 04/12/21 11:24> Quality Stroke Does the patient have a stroke diagnosis?: No <Lanie Ayala NP - Last Filed: 04/12/21 11:24> VTE Prior VTE?: No <Lanie Ayala NP - Last Filed: 04/12/21 11:24> VTE Risk Level:: Medical - moderate - high <Lanie Ayala NP - Last Filed: 04/12/21 11:24> VTE Device Contraindication: Treatment Not Indicated <Lanie Ayala NP - Last Filed: 04/12/21 11:24> VTE Drug Contraindication: N/A - Med Ordered <Lanie Ayala NP - Last Filed: 04/12/21 11:24>
--- NOTE | 2021-04-12 13:00 | CA_ITS ---
Transthoracic Echocardiogram Patient (Last, First, Middle): Elba Sheriff, Gender: Female Date of : 1975 Age: 45 Procedure Date: 04/12/2021 Procedure Type: Transthoracic Echocardiogram Location: [facility] [place] Height: 162.56 cm Weight: 66.68 kg BSA: 1.72 m2 Heart Rate: bpm BP: 125 / 67 mmHg Sider Mechanic: ARA Referring MD: Lanie Ayala NP Symptoms: ? pulm htn Study Quality: Fair ECG Rhythm: Sinus Conclusions: - The left ventricular systolic function is normal. The visually estimated ejection fraction is between 60-65%. - The right ventricle was not well visualized. TAPSE measurement is suboptimal but possibly moderate reduction in RV systolic function. - Mild pulmonary hypertension is present. Findings Left Ventricle Normal left ventricular cavity size. There is normal left ventricular wall thickness. The left ventricular systolic function is normal. The visually estimated ejection fraction is between 60-65%. There is no evidence of regional wall motion abnormalities. Diastolic function is likely normal for age. Right Ventricle The right ventricle was not well visualized. TAPSE measurement is suboptimal but possibly moderate reduction in RV systolic function. Atria The left atrium is normal in size. The right atrium was not well visualized. Aortic Valve There is a normal trileaflet aortic valve. There is no aortic valve stenosis. There is trace (trivial) aortic valve regurgitation. Mitral Valve The mitral valve appears normal. There is mild mitral valve regurgitation. There is no mitral valve stenosis. Pulmonic Valve The pulmonic valve was not well visualized. Tricuspid Valve Normal tricuspid valve structure. There is trace tricuspid valve regurgitation. The right ventricular systolic pressure is 41 mmHg. Mild pulmonary hypertension is present. Great Vessels The aortic annulus, sinuses of valsalva, asc aorta, and aortic arch are normal in size. Venous The inferior vena cava was not well visualized. Pericardium/Pleural There is no evidence of pericardial effusion. Prior Study Comparison No prior study available for comparison. Measurements 2D Linear Measurements RVIDd: 2.97 RVIDd Index: 1.73 IVSd: 0.90 0.6-0.9/0.6-1.0 cm LVIDd: 4.47 3.9-5.3/4.2-5.9 cm LVIDd Index: 2.60 2.4-3.2/2.2-3.1 cm/m2 LVIDs: 2.80 2.0-3.6 cm LVPWd: 0.84 0.7-1.1 cm Ao Root: 3.30 2.1-3.5 cm LA Diam: 2.90 2.7-3.8/3.0-4.0 cm LAIDs Index: 1.69 1.5-2.3 cm/m2 LV Mass: 156.30 67-162/88-224 g LV Mass Index: 90.87 43-95/49-115 g/m2 Tricuspid Valve TR Pk Glenn: 2.89 TR Pk Grad: 33.00 RA Press: 8.00 RVSP: 41.00 Great Vessels Aorta Ao Root-2D: 3.30 2.0-3.7 cm Ao Asc: 3.10 2.1-3.4 cm Ao Arch: 2.60 Updated in Other Vendor System with Status of Final Ellis Long MD electronically signed on 04/12/2021 4:19:20 PM with status of Final
[2021-04-12] MEDS: Enoxaparin Sodium 40 MG/0.4 ML SYRINGE SUBCUT (13:06)
--- NOTE | 2021-04-12 13:20 | MHC.CM.PN ---
per respomse from [facility] pt not eligible for hospice ,dc plan home in 1 to 2 days with [facility] /pallative
--- NOTE | 2021-04-12 17:23 | P.EN_ITS ---
Midline was attempted twice with access of basilic vein ( [id number]) but could not advance the midline into place. Pt refused to have us try the 3rd attempt. Lanie Ayala NUCLEAR ENGINEERING TECHNICIAN aware via [employer] connect.at 521pm.
--- NOTE | 2021-04-12 17:23 | PM.EVENT ---
Midline was attempted twice with access of basilic vein ( [id number]) but could not advance the midline into place. Pt refused to have us try the 3rd attempt. Lanie Ayala GROCERY SHOPPER aware via [employer] connect.at 521pm.
[2021-04-12] MEDS: LORazepam 0.5 MG TABLET SUBLINGUAL (17:59)
[2021-04-12] MEDS: Acetaminophen 325 MG TABLET 650 MG PO (17:59)
--- NOTE | 2021-04-12 19:00 | PC.NURSE ---
IV Access patient lost IV access after receiving her schedule dose of abx. RN, remedial project manager attempted and was unsuccessful as pt has poor vein patency. Provider was made aware of the situation and ordered placement of a midline. IR attempted the midline and was unsuccessful and the same dilemma flat vein dilemma continue. They wanted another attempt, however the pt became agitated and anxious and refused the process. Provider was notified and ask about the possibility of an EJ. ER Physicians came to assess pt of the possibility of a EJ, however it was another validation of poor veins and doubting chance. He consulted with Hospitals at the present time of the idea o a central line which they decided against. Pain Management Pt has been adamant on the need of wanting to remain comfortable with her pain med, however due to loss of IV access alternative measure were approved by MD and pharmacy. Pt is allowed to receive her Dilaudid IM or sub-Q. Pt c/o of breakthrough pain and MD agreed to have in between doses to help relieve her pain. This was communicated with pt and and he agreed that it is ideal. AUTO HIKER/Hospice request Pt would like to have a meeting tomorrow with entertainment manager, RN on schedule, Nurse Screen Print Operator and MD as she would like to be on comfort measures only, pt has refused her seizure medication and her afternoon vitals. She is sick and tired and wants to be on comfort care only. Her will be coming in at 1100 hoping to have this decision set in stone.
[2021-04-12] MEDS: hydrOXYzine HCL 25 MG TABLET PO (22:28)
[2021-04-12] MEDS: traZODone HCL 50 MG TABLET PO (22:28)
[2021-04-12] MEDS: HYDROmorphone HCl 1 MG/ML SYRINGE SUBCUT (22:28)
--- NOTE | 2021-04-12 22:44 | PC.NURSE ---
Pt a&ox4, reports generalized vague pain, sub q dilaudid given as ordered, pt reports moderate effect. Pt declines keppra this evening. Remains on high flow and nrb to maintain O2 sats. IV access lost early today, unsuccessful attempts to replace access by IR team, providers aware, no access at this time, see notes. Pt is resting in bed at this time, declines vital signs this shift. See flow sheet for assessment.
[2021-04-13] VITALS (14 sets, daily range): BP systolic 115–128; BP diastolic 54–59; PULSE 86–124; RESP 18–24; TEMP 36.2–37.1; O2SAT 92–98
[2021-04-13] MEDS: Omeprazole 20 MG CAPSULE.DR PO (06:21)
[2021-04-13] MEDS: HYDROmorphone HCl 1 MG/ML SYRINGE SUBCUT ×4 (06:22→20:27)
[2021-04-13] MEDS: FLUoxetine HCl 20 MG CAPSULE 60 MG PO (09:04)
[2021-04-13] MEDS: Cyclobenzaprine HCl 10 MG TABLET PO (09:04)
[2021-04-13] MEDS: OLANZapine 5 MG TABLET PO (09:04)
[2021-04-13] MEDS: LORazepam 0.5 MG TABLET SUBLINGUAL (09:05)
[2021-04-13] MEDS: Metoprolol Succinate ER 25 MG TAB.ER.24H PO (09:22)
--- NOTE | 2021-04-13 09:33 | MHC.CLN ---
F/U PO INTAKE VARIABLE DIET RX: REGULAR-APPROPRIATE PT POSSIBLY SWITCHING TO HOSPICE/PALLIATIVE SERVICES FOLLOWING WITH TEAM
--- NOTE | 2021-04-13 12:53 | P.PNIM_ITS ---
Progress Note: A&P (1) Scleroderma involving lung: Status: Acute (2) Respiratory failure, acute and chronic: Status: Acute Assessment and Plan: 45-year-old female with past medical history of pulmonary fibrosis/interstitial lung disease who is currently on palliative care and possibly going to hospice although she has not made a decision yet presents with fever, shortness of breath, cough, and intractable chest pain. # acute on chronic respiratory failure due to hosp. acquired pneumonia/ pulmonary fibrosis/ interstitial lung disease with hx of scleroderma. ?? Continue high-flow oxygen, NRB Increasing oxygen demand ?? continue IV Levaquin ?? Solumedrol 1g for 3 days ?? echo showed only mild pulm htn ? Increasing lethargy, recheck covid, check UA, ABG ?? #. Sepsis due to pneumonia.? ? ? Resolving sepsis, leukocytosis secondary to steroid, lactic acid trending down, continue IV antibiotic and supportive care #. Intractable pain with deep breathing.? Good pain control, patient use 2 mg of Dilaudid every 6 hours at home ?will gradually wean down to home dose and recommend outpatient PCP follow up. ?? #. History of seizures.?No seizures Continue Keppra 500 mg b.i.d. take seizure precautions ? # PTSD continue home medications DVT prophylaxis:? On Lovenox 04/13 meeting with patient, her and patients RN. 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 It was explained to both of them that NUISANCE WILDLIFE CONTROL OPERATOR meant that she will no longer be treated for infections, high flow and NRB would come off and patient would have oxygen for comfort and pain medication for comfort. At this time the patient and do not want NUISANCE WILDLIFE CONTROL OPERATOR but are hoping to qualify at some time for hospice. We lenny continue to monitor patients condition and assess daily. Subjective Subjective Date of Service: 04/13/21 Interval History: Follow up Pneumonia Increasing oxygen demand diffuse body pain more lethargy today Physical Exam Vital Signs: Vital Signs: Last Vital Signs Temp 97.8 F 04/13/21 11:47 Pulse 112 H 04/13/21 11:47 Resp 20 04/13/21 11:47 BP 119/59 L 04/13/21 11:47 Pulse Ox 95 04/13/21 11:47 Oxygen Flow Rate 50 04/10/21 00:13 Body Mass Index 25.3 sleeping lungs normal expansion heart regular rate rhythm, tachy positive bowel sounds, abdomen is soft, nontender neuro patient is very sleepy, no focal deficits Objective Data Current Medications Generic Name Dose Route Start Last Admin Trade Name Basilioq PRN Reason Stop Dose Admin Acetaminophen 650 mg 04/07/21 12:53 04/12/21 17:59 Acetaminophen 325 Mg Tablet PO 650 mg Q6H PRN Administration Pain, Mild (Pain Scale 1-3) Clonazepam 1 mg 04/13/21 09:55 Clonazepam 1 Mg Tablet PO TID PRN anxiety Cyclobenzaprine HCl 10 mg 04/08/21 08:00 04/13/21 09:04 Cyclobenzaprine Hcl 10 Mg Tablet PO 10 mg TID PRN Administration Muscle Spasm Enoxaparin Sodium 40 mg 04/07/21 13:00 04/12/21 13:06 Enoxaparin Sodium 40 Mg/0.4 Ml Syringe SUBCUT 40 mg Q24H GOLDY Administration Fluoxetine HCl 60 mg 04/08/21 09:00 04/13/21 09:04 Fluoxetine Hcl 20 Mg Capsule PO 60 mg DAILY GOLDY Administration Guaifenesin/Dextromethorphan 10 ml 04/09/21 15:30 04/13/21 09:23 Guaifenesin Dm 200/20/10 Ml 10 Ml Syrup PO Not Given Q6H GOLDY Hydromorphone HCl 1 mg 04/12/21 17:54 04/13/21 11:23 Hydromorphone Hcl 1 Mg/Ml Syringe SUBCUT 1 mg Q4H PRN Administration Discomfort/Shortness of breath Hydromorphone HCl 1 mg 04/12/21 19:12 04/13/21 06:22 Hydromorphone Hcl 1 Mg/Ml Syringe SUBCUT 1 mg Q12H PRN Administration Pain, Severe (Pain Scale 7-10) Protocol Hydroxyzine HCl 25 mg 04/08/21 21:00 04/12/21 22:28 Hydroxyzine Hcl 25 Mg Tablet PO 25 mg BEDTIME GOLDY Administration Levofloxacin 500 mg in 100 mls @ 100 mls/hr 04/08/21 09:00 04/13/21 09:16 Levaquin IV Not Given Q24H GOLDY Methylprednisolone Sodium 66 mls @ 66 mls/hr 04/11/21 11:00 04/13/21 11:39 Succinate 1,000 mg/ Sodium IV Not Given Chloride Q24H GOLDY Levalbuterol HCl 1.25 mg 04/07/21 16:00 04/13/21 10:51 Levalbuterol Hcl 1.25 Mg/0.5 Ml Vial.Neb INHALE 1.25 mg RQ4H WHILE AWAKE GOLDY Administration Levetiracetam 500 mg 04/08/21 21:00 04/13/21 09:15 Levetiracetam 500 Mg Tablet PO Not Given BID GOLDY Lorazepam 0.5 mg 04/10/21 01:30 04/13/21 09:05 Lorazepam 0.5 Mg Tablet SUBLINGUAL 0.5 mg Q4H PRN Administration anxiety/restlessness Metoprolol Succinate 25 mg 04/08/21 09:00 04/13/21 09:22 Metoprolol Succinate Er 25 Mg Tab.Er.24h PO 25 mg DAILY GOLDY Administration Protocol Olanzapine 5 mg 04/08/21 09:00 04/13/21 09:04 Olanzapine 5 Mg Tablet PO 5 mg DAILY GOLDY Administration Omeprazole 20 mg 04/09/21 06:30 04/13/21 06:21 Omeprazole 20 Mg Capsule.Dr PO 20 mg DAILY@0630 GOLDY Administration Ondansetron HCl 4 mg 04/10/21 12:23 04/10/21 12:34 Ondansetron Hcl 4 Mg/2 Ml Vial IVPUSH 4 mg Q6H PRN Administration Nausea and Vomiting Oxycodone HCl 10 mg 04/13/21 09:25 Oxycodone Hcl Immed Release 5 Mg Tablet PO Q4H PRN Pain, Mild (Pain Scale 1-3) Pharmacy Consult 1 each 04/07/21 12:58 Consult Rx Perform Med Rec MISCELLANE ONCE PRN Consult order Sodium Chloride 3 ml 04/07/21 16:00 04/13/21 09:05 0.9 % Sodium Chloride Flush 3 Ml Syringe IVFLUSH Not Given QSHIFT GOLDY Trazodone HCl 50 mg 04/08/21 21:00 04/12/21 22:28 Trazodone Hcl 50 Mg Tablet PO 50 mg BEDTIME GOLDY Administration Labs CBC & Chem 7: 04/12/21 08:15 04/12/21 08:15 Microbiology Microbiology Results: Microbiology 04/07/21 09:45 Blood - Venous Blood Culture - Final No growth after 5 days. 04/07/21 08:00 Blood - Venous Blood Culture - Final No growth after 5 days. Quality Stroke Does the patient have a stroke diagnosis?: No VTE Prior VTE?: No VTE Risk Level:: Medical - moderate - high VTE Device Contraindication: Treatment Not Indicated VTE Drug Contraindication: N/A - Med Ordered
[2021-04-13] MEDS: Enoxaparin Sodium 40 MG/0.4 ML SYRINGE SUBCUT (13:44)
[2021-04-13 14:15] LABS: ABG Base Excess 15.4 mmol/L; ABG HCO3 39 mmol/L (22-26); ABG pCO2 46 mmHg (32-45); ABG pCO2 TC 46 mmHg (32-45); ABG pH 7.53 (7.35-7.45); ABG pH TC 7.54 (7.35-7.45); ABG pO2 79 mmHg (83-108); ABG pO2 TC 77 (83-108)
[2021-04-13 14:16] LABS: ABG Refer to POC result
[2021-04-13 14:16] LABS: D Dimer 1012 NG/ML
[2021-04-13 14:21] LABS: Hematocrit 29.8 % (37-47); Hemoglobin 9.2 g/dl (12.0-16.0); Mean Corpuscular HGB Conc 30.9 g/dl (31.0-35.0); Mean Corpuscular Hemoglobin 25.8 pg (27.0-33.0); Mean Corpuscular Volume 83.7 fL (80-98); NRBC Pct Auto 0.2 /100WBC (0.0-0.2); Platelet Count 346 X10*3/uL (160-400); Red Blood Count 3.56 X10*6/uL (4.20-5.50); Red Cell Distribution Width 15.4 % (11.0-16.0); White Blood Count 17.3 X10*3/uL (4.8-10.8)
[2021-04-13 14:29] LABS: COVID-19 Test Negative (Negative); IDNOW Serial# 9DD0AD1C
[2021-04-13 14:30] LABS: Lactic Acid 1.7 mmol/L (0.5-2.0)
[2021-04-13 14:33] LABS: Anion Gap 13 (12-20); Blood Urea Nitrogen 16 mg/dL (9-16); Calcium 8.3 mg/dL (8.4-10.2); Carbon Dioxide 33 mmol/L (22-29); Chloride 95 mmol/L (96-108); Creatinine Clr Calc Pharmacy 111.4; Estimated Glomerular Filt Rate > 60; Glucose Random 94 mg/dL (60-115); Potassium 4.1 mmol/L (3.3-5.1); Sodium 137 mmol/L (135-145)
[2021-04-13 14:37] LABS: B Type Natriuretic Peptide < 10 pg/mL (<100)
[2021-04-13 14:38] LABS: Troponin-I High Sensitivity < 3.5 ng/L (<3.5-17.0)
--- NOTE | 2021-04-13 15:20 | MHC.CM.PN ---
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
[2021-04-13 15:58] LABS: Glucose Urine UA NEG (NEG); Leukocyte Esterase Urine NEG (NEG); Nitrite Urine NEG (NEG); Specific Gravity - Urine 1.015 (1.005-1.025); UACC Culture Trigger NO; Urine Blood 3+ (NEG); Urine Ketones NEG (NEG); Urine Protein 1+ MG/DL (NEG-TRACE)
[2021-04-13 15:59] LABS: Appearance Urine HAZY; Color Urine YELLOW
[2021-04-13 16:13] LABS: RBC Urine 50-75 /HPF (0); Squamous Epithelial Cell Urine 1+ /LPF; WBC Urine 0-2 /HPF (0-4)
[2021-04-13] MEDS: clonazePAM 1 MG TABLET PO (20:28)
[2021-04-13] MEDS: hydrOXYzine HCL 25 MG TABLET PO (20:28)
[2021-04-13] MEDS: traZODone HCL 50 MG TABLET PO (20:28)
[2021-04-14] VITALS (22 sets, daily range): BP systolic 118–145; BP diastolic 57–69; PULSE 115–135; RESP 16–34; TEMP 36.4–38.2; O2SAT 88–100
[2021-04-14] MEDS: HYDROmorphone HCl 1 MG/ML SYRINGE SUBCUT ×4 (00:48→13:02)
[2021-04-14] MEDS: oxyCODONE HCl Immed Release 5 MG TABLET 10 MG PO (03:38)
[2021-04-14] MEDS: Cyclobenzaprine HCl 10 MG TABLET PO ×2 (05:06→19:59)
[2021-04-14] MEDS: Omeprazole 20 MG CAPSULE.DR PO (05:06)
[2021-04-14 13:00] LABS: ABG Base Excess 7.3 mmol/L; ABG HCO3 30 mmol/L (22-26); ABG pCO2 39 mmHg (32-45); ABG pCO2 TC 38 mmHg (32-45); ABG pO2 69 mmHg (83-108); ABG pO2 TC 66 (83-108)
--- NOTE | 2021-04-14 13:03 | P.PNPL_ITS ---
Subjective Subjective Date of Service: 04/14/21 Interval history: Patient was seen on exam. The patient has had a very event full feed days. She finished the pulse dose steroids x3 days. Did not make significant improvement her respiratory status. Her oxygen requirements increased now on 100% non-rebreather and also 100% high-flow 50 L. she did have a blood gas demonstrating decreased PaO2 better to use okay. She has been requiring additional opiates to improve her respiratory status. Additional details status the patient this morning explained that she wanted to be comfort measures only and she wanted to peacefully. She had mentioned that she spoke her has been and also spoke to her sister and that were all in the same page. However, when the has been came in he was not in agreement. Currently she is under the influence of opiates and her mentation is waxing waning. He would like to be treated aggressively. He wants to maintain the DNR DNI. Explained to the patient that even with the best efforts to her condition is so advanced so guarded that she still may survive. Therefore, he will also let the family know. She has been having worsening cough which appears to be congested in nature. She has had multiple IV axis a times including midline central lying multiple IV peripherally. Also attempted to do a pedal IV axis. 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 She has been on oral anti the biotic for her significant bronchopneumonia. She needs broad-spectrum antibiotics therefore needs with axis. Will request a PICC line to be done at the bedside if possible. The patient also is not mentating well non concerned that her CO2 building up specially due to the opiate medication that she requires maintain her respiratory status. Explained to the that is difficult to do both keep her comfortable and treat her aggressive over the would will try to do our best. At this point will switch over to BiPAP and will get an ABG prior to that. Once we have IV access we can start broad-spectrum IV antibiotics. The patient is doing a very cardiac condition. Objective Data Labs CBC & Chem 7: 04/13/21 13:58 04/13/21 13:57 Labs: Laboratory Results - last 24 hr 04/13/21 04/13/21 04/13/21 13:15 13:17 13:57 WBC RBC Hgb Hct MCV MCH MCHC RDW Plt Count MPV Absolute Nucleated RBC Nucleated RBC % (auto) D-Dimer 1012 O2 Saturation ABG pH at Pt Temp ABG pH (Temp Correct) ABG pCO2 at Pt Temp ABG pCO2 (Temp Corrct ABG pO2 at Pt Temp ABG pO2 (Temp Correct ABG HCO3 ABG Base Excess (Actual) Sodium Potassium Chloride Carbon Dioxide Anion Gap BUN Creatinine Estim Creat Clear Calc Estimated GFR Random Glucose Lactic Acid Calcium Troponin I High Sens B-Natriuretic Peptide Urine Color YELLOW Urine Appearance HAZY Urine pH 7.0 Ur Specific [place] 1.015 Urine Protein 1+ H Urine Glucose (UA) NEG Urine Ketones NEG Urine Blood 3+ H Urine Nitrite NEG Ur Leukocyte Esterase NEG Urine RBC 50-75 H Urine WBC 0-2 Ur Squamous Epith Cells 1+ Urine Bacteria NONE COVID-19 (VAN) Negative COVID-19 Clin Com See Note 04/13/21 04/13/21 04/13/21 13:57 13:57 13:57 WBC RBC Hgb Hct MCV MCH MCHC RDW Plt Count MPV Absolute Nucleated RBC Nucleated RBC % (auto) D-Dimer O2 Saturation ABG pH at Pt Temp ABG pH (Temp Correct) ABG pCO2 at Pt Temp ABG pCO2 (Temp Corrct ABG pO2 at Pt Temp ABG pO2 (Temp Correct ABG HCO3 ABG Base Excess (Actual) Sodium 137 Potassium 4.1 Chloride 95 L Carbon Dioxide 33 H Anion Gap 13 BUN 16 Creatinine 0.60 Estim Creat Clear Calc 111.4 Estimated GFR > 60 Random Glucose 94 D Lactic Acid 1.7 Calcium 8.3 L D Troponin I High Sens < 3.5 B-Natriuretic Peptide Urine Color Urine Appearance Urine pH Ur Specific [place] Urine Protein Urine Glucose (UA) Urine Ketones Urine Blood Urine Nitrite Ur Leukocyte Esterase Urine RBC Urine WBC Ur Squamous Epith Cells Urine Bacteria COVID-19 (VAN) COVID-19 Global Value [employer] Com 04/13/21 04/13/21 04/13/21 13:57 13:58 14:07 WBC 17.3 H RBC 3.56 L Hgb 9.2 L Hct 29.8 L MCV 83.7 MCH 25.8 L MCHC 30.9 L RDW 15.4 Plt Count 346 MPV 8.0 L Absolute Nucleated RBC 0.040 H Nucleated RBC % (auto) 0.2 D-Dimer O2 Saturation 95.0 ABG pH at Pt Temp 7.53 H ABG pH (Temp Correct) 7.54 H ABG pCO2 at Pt Temp 46 H ABG pCO2 (Temp Corrct 46 H ABG pO2 at Pt Temp 79 L ABG pO2 (Temp Correct 77 L ABG HCO3 39 H ABG Base Excess (Actual) 15.4 Sodium Potassium Chloride Carbon Dioxide Anion Gap BUN Creatinine Estim Creat Clear Calc Estimated GFR Random Glucose Lactic Acid Calcium Troponin I High Sens B-Natriuretic Peptide < 10 Urine Color Urine Appearance Urine pH Ur Specific [place] Urine Protein Urine Glucose (UA) Urine Ketones Urine Blood Urine Nitrite Ur Leukocyte Esterase Urine RBC Urine WBC Ur Squamous Epith Cells Urine Bacteria COVID-19 (VAN) COVID-19 Global Value [employer] Com 04/14/21 12:52 WBC RBC Hgb Hct MCV MCH MCHC RDW Plt Count MPV Absolute Nucleated RBC Nucleated RBC % (auto) D-Dimer O2 Saturation 91.0 ABG pH at Pt Temp 7.50 H ABG pH (Temp Correct) 7.50 H ABG pCO2 at Pt Temp 39 ABG pCO2 (Temp Corrct 38 ABG pO2 at Pt Temp 69 L ABG pO2 (Temp Correct 66 L ABG HCO3 30 H ABG Base Excess (Actual) 7.3 Sodium Potassium Chloride Carbon Dioxide Anion Gap BUN Creatinine Estim Creat Clear Calc Estimated GFR Random Glucose Lactic Acid Calcium Troponin I High Sens B-Natriuretic Peptide Urine Color Urine Appearance Urine pH Ur Specific [place] Urine Protein Urine Glucose (UA) Urine Ketones Urine Blood Urine Nitrite Ur Leukocyte Esterase Urine RBC Urine WBC Ur Squamous Epith Cells Urine Bacteria COVID-19 (VAN) COVID-19 Clin Com Microbiology Microbiology Results: Microbiology 04/07/21 09:45 Blood - Venous Blood Culture - Final No growth after 5 days. 04/07/21 08:00 Blood - Venous Blood Culture - Final No growth after 5 days. Review of Systems Review of Systems Constitutional : +malaise ENT/Mouth : No Hearing loss, No Ear Pain, No Nasal Congestion, No Sinus Pain, No Hoarseness, No sore throat, No Rhinorrhea, No Swallowing Difficulty Eyes: No Eye Pain, No Swelling, No Redness, No Foreign Body, No Discharge, No Vision Changes Cardiovascular : Complaining of chronic Chest Pain, unchanged since left against medical advice, complaining of worsening shortness of breath Respiratory : +Cough, dyspnea Gastrointestinal : No Nausea, No Vomiting, No Diarrhea, No Constipation, No abdominal Pain, No Hematochezia, No Melena Genitourinary : no irregular bleeding, No Dysuria, No Urinary Frequency, No Hematuria, No Urinary Incontinence, No Urgency, No Flank Pain, No Urinary Flow Changes, No Hesitancy Musculoskeletal : No joint pain, complaining of generalized myalgias, No Joint Swelling Skin : No Skin Lesions, No rash Neuro : No Weakness, No Numbness, No Paresthesias, No Loss of Consciousness, No Dizziness, No Headache Physical Exam Vital Signs: Vital Signs: Last Vital Signs Temp 97.5 F 04/14/21 07:59 Pulse 121 H 04/14/21 11:36 Resp 16 04/14/21 10:33 BP 118/57 L 04/14/21 07:59 Pulse Ox 91 L 04/14/21 11:36 Oxygen Flow Rate 50 04/10/21 00:13 Body Mass Index 25.3 Const: General: in distress mild Neck: Neck: Yes normal visual inspection, Yes full ROM and Yes no lymphadenopathy Chest: Chest palpation & inspection: normal inspection of the chest Resp: Auscultation: crackles, rales, rhonchi and diminished lung sounds Cardio: Rate: regular rate Rhythm: regular rhythm Heart sounds: S1 normal heart sound present and S2 normal heart sound present GI: Palpation (GI): Soft to palpation and nontender Auscultation: normal bowel sounds Skin: General skin exam: rashes and/or lesions noted Procedures Date of Service Date of Service: 04/14/21 Assessment and Plan Assessment and plan (1) Scleroderma involving lung: Status: Acute (2) Respiratory failure, acute and chronic: Status: Acute (3) Pneumonia: Status: Acute Assessment and Plan: Needs IV access start Vanco/Zosyn ABG Start BIPAP repeat CXR Guarded condition. She is DNR/DNI Time Spent With Patient Time: Total time spent is greater than 50% in coordination of care (as documented) at patient's floor/unit and/or counseling patient: Time with patient: Greater than 35 minutes Progress Note: Quality Stroke Does the patient have a stroke diagnosis?: No
[2021-04-14 13:20] LABS: ABG Refer to POC result
[2021-04-14] MEDS: LORazepam 0.5 MG TABLET SUBLINGUAL (15:27)
--- NOTE | 2021-04-14 15:50 | HO.PM.IMPN ---
Subjective Subjective Date of Service: 04/15/21 Interval History: Complaining of chest pain, cough, requesting for comfort care only. Review of Systems General no headache, no dizziness. no fever chills. CVS chest pain no change with coughing or shortness of breath Respiratory congested cough, shortness of breath Gastrointestinal nausea , no abdominal pain Physical Exam Vital Signs: Vital Signs: Last Vital Signs Temp 97.8 F 04/14/21 15:28 Pulse 130 H 04/14/21 15:28 Resp 19 04/14/21 15:28 BP 129/57 L 04/14/21 15:28 Pulse Ox 94 04/14/21 15:28 Oxygen Flow Rate 50 04/10/21 00:13 Body Mass Index 25.3 General in mild respiratory distress Neck no JVD. CVS regular rate rhythm, Respiratory lungs coarse breath sounds with bilateral rhonchi, diminished breath sounds. Gastrointestinal abdomen soft, nontender, bowel sounds audible, no no guarding , no rigidity. Extremities no clubbing cyanosis or edema. Neuro nonfocal patient moving all 4 extremity speech clear. Skin no rash Objective Data Current Medications Generic Name Dose Route Start Last Admin Trade Name Freq PRN Reason Stop Dose Admin Acetaminophen 650 mg 04/07/21 12:53 04/12/21 17:59 Acetaminophen 325 Mg Tablet PO 650 mg Q6H PRN Administration Pain, Mild (Pain Scale 1-3) Clonazepam 1 mg 04/13/21 09:55 04/13/21 20:28 Clonazepam 1 Mg Tablet PO 1 mg TID PRN Administration anxiety Cyclobenzaprine HCl 10 mg 04/08/21 08:00 04/14/21 05:06 Cyclobenzaprine Hcl 10 Mg Tablet PO 10 mg TID PRN Administration Muscle Spasm Enoxaparin Sodium 40 mg 04/07/21 13:00 04/14/21 14:10 Enoxaparin Sodium 40 Mg/0.4 Ml Syringe SUBCUT Not Given Q24H GOLDY Fluoxetine HCl 60 mg 04/08/21 09:00 04/14/21 11:01 Fluoxetine Hcl 20 Mg Capsule PO Not Given DAILY GOLDY Guaifenesin/Dextromethorphan 10 ml 04/09/21 15:30 04/14/21 14:10 Guaifenesin Dm 200/20/10 Ml 10 Ml Syrup PO Not Given Q6H GOLDY Hydromorphone HCl 1 mg 04/12/21 17:54 04/14/21 13:02 Hydromorphone Hcl 1 Mg/Ml Syringe SUBCUT 1 mg Q4H PRN Administration Discomfort/Shortness of breath Hydromorphone HCl 1 mg 04/12/21 19:12 04/14/21 10:33 Hydromorphone Hcl 1 Mg/Ml Syringe SUBCUT 1 mg Q12H PRN Administration Pain, Severe (Pain Scale 7-10) Protocol Hydroxyzine HCl 25 mg 04/08/21 21:00 04/13/21 20:28 Hydroxyzine Hcl 25 Mg Tablet PO 25 mg BEDTIME GOLDY Administration Levofloxacin 500 mg in 100 mls @ 100 mls/hr 04/08/21 09:00 04/14/21 11:01 Levaquin IV Not Given Q24H GOLDY Methylprednisolone Sodium 66 mls @ 66 mls/hr 04/11/21 11:00 04/14/21 13:10 Succinate 1,000 mg/ Sodium IV Not Given Chloride Q24H GOLDY Levalbuterol HCl 1.25 mg 04/07/21 16:00 04/14/21 11:22 Levalbuterol Hcl 1.25 Mg/0.5 Ml Vial.Neb INHALE 1.25 mg RQ4H WHILE AWAKE GOLDY Administration Levetiracetam 500 mg 04/08/21 21:00 04/14/21 11:01 Levetiracetam 500 Mg Tablet PO Not Given BID GOLDY Lorazepam 0.5 mg 04/10/21 01:30 04/14/21 15:27 Lorazepam 0.5 Mg Tablet SUBLINGUAL 0.5 mg Q4H PRN Administration anxiety/restlessness Metoprolol Succinate 25 mg 04/08/21 09:00 04/14/21 11:01 Metoprolol Succinate Er 25 Mg Tab.Er.24h PO Not Given DAILY GOLDY Protocol Olanzapine 5 mg 04/08/21 09:00 04/14/21 11:02 Olanzapine 5 Mg Tablet PO Not Given DAILY GOLDY Omeprazole 20 mg 04/09/21 06:30 04/14/21 05:06 Omeprazole 20 Mg Capsule.Dr PO 20 mg DAILY@0630 GOLDY Administration Ondansetron HCl 4 mg 04/10/21 12:23 04/10/21 12:34 Ondansetron Hcl 4 Mg/2 Ml Vial IVPUSH 4 mg Q6H PRN Administration Nausea and Vomiting Oxycodone HCl 10 mg 04/13/21 09:25 04/14/21 03:38 Oxycodone Hcl Immed Release 5 Mg Tablet PO 10 mg Q4H PRN Administration Pain, Mild (Pain Scale 1-3) Pharmacy Consult 1 each 04/07/21 12:58 Consult Rx Perform Med Rec MISCELLANE ONCE PRN Consult order Sodium Chloride 3 ml 04/07/21 16:00 04/14/21 11:01 0.9 % Sodium Chloride Flush 3 Ml Syringe IVFLUSH Not Given QSHIFT GOLDY Trazodone HCl 50 mg 04/08/21 21:00 04/13/21 20:28 Trazodone Hcl 50 Mg Tablet PO 50 mg BEDTIME GOLDY Administration Labs CBC & Chem 7: 04/13/21 13:58 04/13/21 13:57 Labs: Laboratory Results - last 24 hr 04/13/21 04/14/21 13:17 12:52 O2 Saturation 91.0 ABG pH at Pt Temp 7.50 H ABG pH (Temp Correct) 7.50 H ABG pCO2 at Pt Temp 39 ABG pCO2 (Temp Corrct 38 ABG pO2 at Pt Temp 69 L ABG pO2 (Temp Correct 66 L ABG HCO3 30 H ABG Base Excess (Actual) 7.3 Urine Color YELLOW Urine Appearance HAZY Urine pH 7.0 Ur Specific [place] 1.015 Urine Protein 1+ H Urine Glucose (UA) NEG Urine Ketones NEG Urine Blood 3+ H Urine Nitrite NEG Ur Leukocyte Esterase NEG Urine RBC 50-75 H Urine WBC 0-2 Ur Squamous Epith Cells 1+ Urine Bacteria NONE Assessment and Plan (1) Scleroderma involving lung: Status: Acute (2) Respiratory failure, acute and chronic: Status: Acute (3) Pneumonia: Status: Acute (4) Seizure disorder: Status: Acute (5) Intractable pain: Status: Acute (6) Pneumonia: Status: Acute Assessment and Plan: 45-year-old female with past medical history of pulmonary fibrosis/interstitial lung disease who is currently on palliative care and possibly going to hospice although she has not made a decision yet presents with fever, shortness of breath, cough, and intractable chest pain. # acute on chronic respiratory failure due to hosp. acquired pneumonia/ pulmonary fibrosis/ interstitial lung disease with hx of scleroderma. ?? Persistent shortness of breath and chest pain, patient spoke with forging machine operator this morning and wished to be DIRECTOR TALENT, but later discussing with patient with the presence of They decided to proceed with treatment including rescue BiPAP, patient and has been made aware of guarded prognosis and not a candidate for intubation on 100% non-rebreather and high-flow oxygen ABG showed hypoxia, patient placed on BiPAP Will continue IV Levaquin and add doxycyclin patient has allergy to penicillin ?? Continue IV steroids, updraft treatment, cough medication, will add Pepcid for GI prophylaxis ?? Blood cultures x2 are negative, COVID-19 negative Poor IV access, IR unable to place midline, consulted ICU for placement of triple-lumen catheter. Case discussed with Dr. Ayala, he agrees with above treatment plan. #. Sepsis due to pneumonia.? ? ? Resolving sepsis, leukocytosis secondary to steroid, lactic acid normalized,, continue IV antibiotic and supportive care #. Intractable pain with deep breathing.? Poor pain control, continue IV Dilaudid change dose to 1.5 mg Q 4 hour due to persistent pain ?? #. History of seizures.? Continue Keppra 500 mg b.i.d. take seizure precautions, patient is refusing by mouth medications, once IV line placed will switch to IV keppra. ? # PTSD - continue home medications DVT prophylaxis:? On Lovenox Quality Stroke Does the patient have a stroke diagnosis?: No VTE Prior VTE?: No VTE Risk Level:: Medical - moderate - high VTE Device Contraindication: Treatment Not Indicated VTE Drug Contraindication: N/A - Med Ordered
[2021-04-14] MEDS: HYDROmorphone HCl 1 MG/ML SYRINGE 1.5 MG SUBCUT ×2 (16:21→20:00)
--- NOTE | 2021-04-14 17:33 | W.PM.CCHP ---
Procedures Date of Service Date of Service: 04/14/21 Central Line Placement Right Femoral: Central Line Comments: There is no IV access and therefore after sterile preparation and draping and utilizing the right common femoral vein retrograde with Seldinger technique triple-lumen central venous catheter 20 centimetre length was placed without complication Under ultrasound guidance I was able to locate the common femoral vein below the inguinal ligament gained easy needle access passed a J tipped guidewire retrograde with Seldinger technique up to the in iliac vein and the 1st dilator and then the 20 cm triple-lumen catheter without complication all lines were irrigated excellent blood return the line was then sewn and tethered into place sterilely dressed and covered Consent for Procedure: Elective - informed consent obtained Time out performed: Yes Sterile Technique Used: Yes Patient placed on monitor/pulse ox: No MD prep: mask, gown and gloves Central line prep: Chlorhexidine scrub Local anesthesia used: lidocaine 1% Ultrasound used for placement: Yes Central line lumen inserted: triple Post procedure: sutured in place, good blood return, all ports aspirated, flushed, capped and sterile dressing applied Patient tolerated procedure: well and no complications Complications: none
--- NOTE | 2021-04-14 18:37 | PC.NURSE ---
Pt refused all am PO medications. Rn explained importance for example her lopressor as her HR 120-130s and pt did not care continued to refuse. Pt refuses repo at times states shes comfortable. Did not let aide change her pad & sheets today. Educated on risk of skin breakdown - pt not up for education at this point. Complained of pain throughout day, gave prn meds. In afternoon pr crying out with pain and discomfort - MD assessed pt and changed prn dose. MD and pulmonary to room mult times today for assessment and education to on plan. Case management also following closely. Pt placed on bipap this afternoon - castro well at this time. Community Service Manager was able to get TLC in R groin this ealry evening flushing well at this time. Hospitalist aware of now IV access. Will cont to current plan
[2021-04-14] MEDS: clonazePAM 1 MG TABLET PO (19:58)
[2021-04-14] MEDS: hydrOXYzine HCL 25 MG TABLET PO (19:59)
[2021-04-14] MEDS: traZODone HCL 50 MG TABLET PO (20:01)
[2021-04-14] MEDS: Doxycycline Hyclate 100 MG in 0.9 % Sodium Chloride 250 ML 166.67 MG IV (20:01)
[2021-04-14] MEDS: 0.9 % Sodium Chloride Flush 3 ML SYRINGE IVFLUSH (20:08)
[2021-04-14] MEDS: methylPREDNISolone Sod Succ 125 MG/2 ML VIAL 60 MG IVPUSH (23:35)
[2021-04-15] VITALS (13 sets, daily range): BP systolic 114–143; BP diastolic 55–79; PULSE 98–129; RESP 18–35; TEMP 35.8–37.3; O2SAT 80–190
[2021-04-15] MEDS: HYDROmorphone HCl 1 MG/ML SYRINGE 1.5 MG SUBCUT (00:43)
[2021-04-15] MEDS: HYDROmorphone HCl 1 MG/ML SYRINGE SUBCUT (05:02)
[2021-04-15] MEDS: Omeprazole 20 MG CAPSULE.DR PO (05:02)
[2021-04-15] MEDS: clonazePAM 1 MG TABLET PO ×2 (05:02→21:20)
[2021-04-15] MEDS: Doxycycline Hyclate 100 MG in 0.9 % Sodium Chloride 250 ML 166.67 MG IV ×2 (07:51→19:59)
[2021-04-15] MEDS: levoFLOXacin/D5W 500 MG/100 ML PIGGYBACK 100 MG IV (07:51)
[2021-04-15] MEDS: 0.9 % Sodium Chloride Flush 3 ML SYRINGE IVFLUSH (07:52)
--- NOTE | 2021-04-15 08:13 | PC.NURSE ---
Addendum entered by Kathleen Lombardo RN 04/15/21 15:17: Patient very emotional through out the day with sudden outburst of yelling stating she only wants to be comfortable I do not want medication other than pain medication. Patient educated by MD on the importance of participating in care. Hospice Referral declined per MD. Family/care team meeting to be held tomorrow, patient aware. Patient still refusing medication except pain medication. Patient also refusing repositioning q2h but able to make independent positional changes. Patient refused CXR earlier until she was given her pain medication per patient statement. CXR completed. MD aware. Original Note: Patient refusing all by mouth medications including metoprolol and keppra. Patient educated on the risks of refusing medications including tachycardia, rhythm changes and seizures, patient still refusing. Agreeable to IV medication including IV antibiotics. Spoke to pharmacy to switch patient medication to IV route. Notified MD [place] aware.
[2021-04-15] MEDS: HYDROmorphone HCl 1 MG/ML SYRINGE IVPUSH (08:45)
--- NOTE | 2021-04-15 09:31 | MHC.CLN ---
F/U PT RESISTANT TO CARE AND MEDS PT WITH IV ABT AND RECEIVING MEDS VIA CENTRAL LINE PT USING BIPAP AND MAY INCREASE NUTRITION RISK PO INTAKE CONTINUES TO BE VARIABLE DIET RX: REGULAR-APPROPRIATE RECOMMEND ADDING ENSURE BID TO INCREASE KCALS SUPPLEMENT TO PROVIDE 700KCALS, 40G PROTEIN MONITOR PO INTAKE CLOSELY
--- NOTE | 2021-04-15 09:34 | P.PNPL_ITS ---
Subjective Subjective Date of Service: 04/15/21 Interval history: The patient was seen on exam. She did get IV access is start IV antibiotics. She has multiple allergies. Currently and I would be levofloxacin and IV doxycycline. Clinically seems like her cough is getting better. White count slightly coming down. She is afebrile. Awaiting her chest x-ray today. Her ABG yesterday was consistent with worsening hypoxemia but her CO2 was stable. She was switched over to BiPAP for the work of breathing and seems to be more effective for her. However, she continues to screen about her pain. She feels like she is not adequately medicated she still very uncomfortable. Explained to her that if she gets additional pain medications we can suppress respiratory drive and she can possibly . The patient is patient is upset that she wants to be made comfort measures only and she would like to because he knows her condition is only getting worse and she is tired of suffering with it. I did speak to her sister and we will also speak to her and will plan to do a family meeting tomorrow at 10:00 a.m. to discuss her goals of care as a family they can come together and support whatever decision data side in the meantime will request a psychiatric consultation for medical competence in view of her substance abuse and psychological issues. She already received pulse dose steroids therefore dose can be decreased. In the meantime were waiting for the chest x-ray an additional blood work requested. Objective Data Labs CBC & Chem 7: 04/13/21 13:58 04/13/21 13:57 Labs: Laboratory Results - last 24 hr 04/14/21 12:52 O2 Saturation 91.0 ABG pH at Pt Temp 7.50 H ABG pH (Temp Correct) 7.50 H ABG pCO2 at Pt Temp 39 ABG pCO2 (Temp Corrct 38 ABG pO2 at Pt Temp 69 L ABG pO2 (Temp Correct 66 L ABG HCO3 30 H ABG Base Excess (Actual) 7.3 Microbiology Microbiology Results: Microbiology 04/07/21 09:45 Blood - Venous Blood Culture - Final No growth after 5 days. 04/07/21 08:00 Blood - Venous Blood Culture - Final No growth after 5 days. Review of Systems Review of Systems Constitutional : +malaise ENT/Mouth : No Hearing loss, No Ear Pain, No Nasal Congestion, No Sinus Pain, No Hoarseness, No sore throat, No Rhinorrhea, No Swallowing Difficulty Eyes: No Eye Pain, No Swelling, No Redness, No Foreign Body, No Discharge, No Vision Changes Cardiovascular : Complaining of chronic Chest Pain, unchanged since left a gainst medical advice, complaining of worsening shortness of breath Respiratory : +Cough, dyspnea Gastrointestinal : No Nausea, No Vomiting, No Diarrhea, No Constipation, No abdominal Pain, No Hematochezia, No Melena Genitourinary : no irregular bleeding, No Dysuria, No Urinary Frequency, No Hematuria, No Urinary Incontinence, No Urgency, No Flank Pain, No Urinary Flow Changes, No Hesitancy Musculoskeletal : No joint pain, complaining of generalized myalgias, No Joint Swelling Skin : No Skin Lesions, No rash Neuro : +pain Dizziness, No Headache Physical Exam Vital Signs: Vital Signs: Last Vital Signs Temp 98.0 F 04/15/21 07:48 Pulse 120 H 04/15/21 07:48 Resp 20 04/15/21 07:48 BP 131/65 04/15/21 07:48 Pulse Ox 96 04/15/21 07:48 Oxygen Flow Rate 50 04/10/21 00:13 Body Mass Index 25.3 Const: General: alert Neck: Neck: Yes normal visual inspection, Yes full ROM and Yes no lymphadenopathy Chest: Chest palpation & inspection: normal inspection of the chest Resp: Auscultation: diminished lung sounds Cardio: Rate: regular rate Rhythm: regular rhythm Heart sounds: S1 normal heart sound present and S2 normal heart sound present GI: Palpation (GI): Soft to palpation and nontender Auscultation: normal bowel sounds Skin: General skin exam: rashes and/or lesions noted Procedures Date of Service Date of Service: 04/15/21 Assessment and Plan Assessment and plan (1) Scleroderma involving lung: Status: Acute (2) Respiratory failure, acute and chronic: Status: Acute (3) Pneumonia: Status: Acute (4) Intractable pain: Status: Acute Assessment and Plan: The patient does have a progressively worsening medical condition that is affecting her lungs. Her interstitial lung disease is very advanced in clinically had a flare up due to infectious etiology. At this point the patient is gravely ill requiring high levels of oxygen supplementation. She does carry a poor prognosis. The patient is not in lung transplant program and be very difficult to do so. Talking to the patient directly she would like not to pursue lung transplant. Actually without discussions she would like to pursue comfort measures only understand that this result in . However, there is a lot of complex in the family specially difficulty with her younger age. Currently she is DNR DNI and family meeting tomorrow at 10:00 a.m. to discuss her goals of care. Recommendations: Continue BiPAP therapy as tolerated during the daytime and at night. She can take breaks on high-flow in order to eat and drink Decrease Solu-Medrol to 60 mg daily Broad-spectrum IV antibiotics Chest x-ray today Pain management Family meeting tomorrow Time Spent With Patient Time: Total time spent is greater than 50% in coordination of care (as documented) at patient's floor/unit and/or counseling patient: Time with patient: 25 - 35 minutes Progress Note: Quality Stroke Does the patient have a stroke diagnosis?: No
[2021-04-15 11:19] LABS: Erythrocyte Sedimentation Rate 106 MM/HR (0-20)
[2021-04-15] MEDS: HYDROmorphone HCl 2 MG/ML VIAL 1.5 MG IVPUSH ×3 (13:06→23:42)
--- NOTE | 2021-04-15 13:47 | HO.PM.IMPN ---
Subjective Subjective Date of Service: 04/15/21 Interval History: Patient demanding for pain medication otherwise refusing to undergo imaging studies refusing by mouth medication, no significant change in patient's condition overnight Tolerating BiPAP. Review of Systems General no headache, no dizziness. no fever chills.? CVS chest pain continues, no change with coughing or shortness of breath Respiratory congested cough, shortness of breath Gastrointestinal? nausea , no abdominal pain Physical Exam Vital Signs: Vital Signs: Last Vital Signs Temp 97.7 F 04/15/21 11:49 Pulse 113 H 04/15/21 11:49 Resp 20 04/15/21 11:49 BP 120/71 04/15/21 11:49 Pulse Ox 95 04/15/21 11:49 Oxygen Flow Rate 50 04/10/21 00:13 Body Mass Index 25.3 General awake alert, talking in full sentences Neck no JVD. CVS? regular rate rhythm, Respiratory lungs coarse breath sounds with bilateral rhonchi, diminished breath sounds. Gastrointestinal abdomen soft, nontender, bowel sounds audible, no no guarding , no rigidity. Extremities no clubbing cyanosis or edema. Neuro nonfocal patient moving all 4 extremity speech clear. Skin no rash Objective Data Current Medications Generic Name Dose Route Start Last Admin Trade Name Freq PRN Reason Stop Dose Admin Acetaminophen 650 mg 04/07/21 12:53 04/12/21 17:59 Acetaminophen 325 Mg Tablet PO 650 mg Q6H PRN Administration Pain, Mild (Pain Scale 1-3) Clonazepam 1 mg 04/13/21 09:55 04/15/21 05:02 Clonazepam 1 Mg Tablet PO 1 mg TID PRN Administration anxiety Cyclobenzaprine HCl 10 mg 04/08/21 08:00 04/14/21 19:59 Cyclobenzaprine Hcl 10 Mg Tablet PO 10 mg TID PRN Administration Muscle Spasm Enoxaparin Sodium 40 mg 04/07/21 13:00 04/15/21 12:33 Enoxaparin Sodium 40 Mg/0.4 Ml Syringe SUBCUT Not Given Q24H GOLDY Famotidine 20 mg 04/15/21 09:00 04/15/21 11:01 Famotidine/Pf 20 Mg/2 Ml Vial IVPUSH Not Given BID GOLDY Fluoxetine HCl 60 mg 04/08/21 09:00 04/15/21 07:53 Fluoxetine Hcl 20 Mg Capsule PO Not Given DAILY GOLDY Guaifenesin/Dextromethorphan 10 ml 04/09/21 15:30 04/15/21 07:54 Guaifenesin Dm 200/20/10 Ml 10 Ml Syrup PO Not Given Q6H GOLDY Hydromorphone HCl 1 mg 04/15/21 09:30 Hydromorphone Hcl 2 Mg/Ml Vial IVPUSH Q12H PRN Pain, Severe (Pain Scale 7-10) Protocol Hydromorphone HCl 1.5 mg 04/15/21 09:16 04/15/21 13:06 Hydromorphone Hcl 2 Mg/Ml Vial IVPUSH 1.5 mg Q4H PRN Administration Discomfort/Shortness of breath Hydroxyzine HCl 25 mg 04/08/21 21:00 04/14/21 19:59 Hydroxyzine Hcl 25 Mg Tablet PO 25 mg BEDTIME GOLDY Administration Doxycycline Hyclate 100 mg/ 250 mls @ 166.67 mls/hr 04/14/21 20:00 04/15/21 09:25 Sodium Chloride IV Infused Q12H GOLDY Infusion Levetiracetam 500 mg in 100 mls @ 400 mls/hr 04/15/21 09:30 04/15/21 11:01 Keppra IV Not Given Q12H ON LICENSE OF [facility] Methylprednisolone Sodium Succinate 60 mg 04/14/21 23:00 04/14/21 23:35 Methylprednisolone Sod Succ 125 Mg/2 Ml Vial IVPUSH 60 mg Q24H GOLDY Administration Metoprolol Tartrate 5 mg 04/15/21 09:30 04/15/21 11:02 Metoprolol Tartrate 5 Mg/5 Ml Vial IVPUSH Not Given Q6H GOLDY Olanzapine 5 mg 04/08/21 09:00 04/15/21 07:54 Olanzapine 5 Mg Tablet PO Not Given DAILY GOLDY Ondansetron HCl 4 mg 04/10/21 12:23 04/10/21 12:34 Ondansetron Hcl 4 Mg/2 Ml Vial IVPUSH 4 mg Q6H PRN Administration Nausea and Vomiting Pharmacy Consult 1 each 04/07/21 12:58 Consult Rx Perform Med Rec MISCELLANE ONCE PRN Consult order Sodium Chloride 3 ml 04/07/21 16:00 04/15/21 07:52 0.9 % Sodium Chloride Flush 3 Ml Syringe IVFLUSH 3 ml QSHIFT GOLDY Administration Trazodone HCl 50 mg 04/08/21 21:00 04/14/21 20:01 Trazodone Hcl 50 Mg Tablet PO 50 mg BEDTIME GOLDY Administration Labs CBC & Chem 7: 04/13/21 13:58 04/13/21 13:57 Labs: Laboratory Results - last 24 hr 04/15/21 10:28 ESR 106 H Assessment and Plan (1) History of interstitial lung disease: Status: Acute (2) Scleroderma involving lung: Status: Acute (3) Respiratory failure, acute and chronic: Status: Acute (4) Pneumonia: Status: Acute (5) Seizure disorder: Status: Acute (6) Intractable pain: Status: Acute Assessment and Plan: 45-year-old female with past medical history of pulmonary fibrosis/interstitial lung disease who is currently on palliative care and possibly going to hospice although she has not made a decision yet presents with fever, shortness of breath, cough, and intractable chest pain. # acute on chronic respiratory failure due to hosp. acquired pneumonia/ pulmonary fibrosis/ interstitial lung disease with hx of scleroderma. ?? Persistent shortness of breath and chest pain ?? ABG showed hypoxia, tolerating BiPAP day 2, on 100% non-rebreather will try to wean oxygen as tolerated ?? Will continue IV Levaquin and iv doxycyclin day 2 patient has allergy to penicillin ?? Continue IV steroids, updraft treatment, cough medication, iv Pepcid for GI prophylaxis ?? Blood cultures x2 are negative, COVID-19 negative Will obtain psych consult for behavioral issues since patient refusing by mouth medications, refusing testing unless given pain medication and for competency. ?? Case discussed with Dr. Ayala family meeting arranged for tomorrow to discuss goal of care and code status #. Sepsis due to pneumonia.? ? ? Resolving sepsis, leukocytosis secondary to steroid, lactic acid normalized,, continue IV antibiotic and supportive care #. Intractable pain with deep breathing.? Poor pain control, continue IV Dilaudid 1.5 mg Q 4 hour due to persistent pain, patient keeps demanding for higher dose of narcotic history of substance abuse in the past #. History of seizures.? Continue Keppra 500 mg b.i.d. take seizure precautions,?patient is refusing by mouth medications, will switch to IV Keppra ? # PTSD - continue home medications DVT prophylaxis:? On Lovenox Quality Stroke Does the patient have a stroke diagnosis?: No VTE Prior VTE?: No VTE Risk Level:: Medical - moderate - high VTE Device Contraindication: Treatment Not Indicated VTE Drug Contraindication: N/A - Med Ordered
--- NOTE | 2021-04-15 15:34 | MHC.CM.PN ---
Home/resume [facility] Palliative Care remains the goal for dc.
--- NOTE | 2021-04-15 17:39 | P.CNPS_ITS ---
History of Present Illness Date of Service: 04/15/2021 Chief Complaint: acute respiratory failure Reason for Consult: Capacity consult Requesting physician: Niurka Tillman Discussed with referring provider: Yes Sources of Information: patient interviewed, chart reviewed and crisis/core team assessment reviewed HPI Narrative: 45 y.o. Female who presented to [facility] on 04/07/21 complaining of SOB, chest pain. She has a diagnosis of pulmonary fibrosis with chronic respiratory failure. She has presented with similar sx, i.e. SOB, chest pain, and breakthrough seizures on 04/03/21 but left AMA. She was diagnosed with hospital acquired pneumonia, febrile with leukocytosis on admission, hypoxic. Over the course of hospitalization, she was placed on high flow oxygen and given dilaudid for complaint of significant chest pain. Chest x-ray on 04/07 showed diffuse bilateral patchy airspace consolidation and low lung volumes.? Per chart, treatment plan was to treat with IV levaquin, IV steroids, updraft treatment as needed, cough medication, incentive spirometry. Pulmonary consultation obtained. She was prescribed IV keppra 500 mg BID for seizures. Per chart, on IV antibiotics and steroids her sepsis was resolving, seen to be cli nically doing better with less SOB and less chest pain.? 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 She asked for hospice care. Echo showed only mild pulmonary HTN. Had increasing lethargy over the course of hospitalization, complained of nausea secondary to narcotic use.? Per Dr. Tillman, she consulted with hospice and Elba has tried to get this level of care in the past but does not qualify due to high oxygen demand.?May have been associating CONTAINER MAKER with being comfortable and accessing pain meds, including morphine and ativan. On 04/13 it was re-explained what CONTAINER MAKER means, she then stated she does not want CONTAINER MAKER but is hoping to qualify for hospice, asks for DNR. Treatment was continued with rescue BiPAP. Central line was put in due to poor IV access. On 04/15 she refused imaging studies unless she had pain medication, refusing PO medications. A family meeting is scheduled for 04/16 due to patient?s insistence on hospice.? I evaluated the patient this afternoon for a capacity consult and upon interview she reports she is in the hospital because ?Im dying with a chronic disorder with no cure? and states she is going to ?very soon.? Says she believes she is dying because ?I cant breath,? ?im in so much pain in my chest,? and ?im barely eating anything.? She says she is making a choice to refuse PO medications, stating ?I dont want any extra medication.? I asked if she understood the risks and benefits of refusing medications i.e. her seizure medication, metoprolol and she stated she understands she will have seizures and ?heart failure, all kinds of stuff.? In assessing her rationale for her choices, she states the medications are ?not gonna help me? and that ?I have the right to and to in dignity.? She is unable to tell me who gave her this prognosis, but says ?many people? have told her this. Says ?a doctor came in yesterday and told me that i?m failing,? however says he didn?t tell her how soon, ?its something I feel.? I asked if she has outpatient psych treatment and she reported she has seen her therapist for ?a long time? but is unable to remember their name. Says she has spoken to her psych prescriber 6-7 times but also does not know her name. Then states ?I dont want to answer any more of your stupid questions.?? I reviewed her records. She has been evaluated by crisis multiple times, hx of psych inpatient admissions in 11/2018, 12/2018, and 08/2019. She was seen in 05/2020 due to psychotic symptoms, A/V hallucinations, and mood instability. Per crisis eval she was reporting she only had ?four months to live,? made allegations that hospital staff were in her room saying negative things to her. She has a history of presenting to crisis with depression, multiple suicide attempts by toxic ingestion of OTC Tylenol and prescribed medication, psychosis, and agitation. Her reports she has a significant trauma history. Per chart, history of substance use disorder, i.e. in 2016 she was prescribed oxycontin and began using heroin for one year without his knowledge. She self detoxed and has been abstinent since then.? I spoke with her his has a history of addiction to pain medication and has a significant trauma history. He states he has tried to talk to Elba about consenting to treatment, but she insists on needing hospice and that she is dying. Per Taran, ?once she is at this point, you can?t change her mind.? He expressed concern that Elba ?wants to get snowed so she doesn?t remember.? PPH: -Has OP psych provider, Brittany Augustine, and OP therapist at [facility]? PMH: -Has diagnosis of pulmonary fibrosis, esophageal reflux, hyperlipidemia, hypokalemia, IBS, lumbago, seizure disorder, abdominal pain, history of syncope and collapse, hx of scleroderma. -Has [facility]NA services through [facility], palliative care -S/p esophagogastroduodenoscopy in 07/2019 -Healthcare Proxy is , Taran Schwartz [facility] Medical History (Updated 04/16/21 @ 00:44 by Debi Reaves NP) Chronic respiratory failure with hypoxia History of interstitial lung disease Oxygen dependent Pulmonary fibrosis Respiratory failure, acute and chronic Scleroderma involving lung Seizures Diagnostics Vital Signs (24Hr): Vital Signs - 24 hr 04/14/21 19:30 04/14/21 19:55 04/15/21 00:00 Temperature 98.9 F 98.9 F Pulse Rate 134 H 129 H Respiratory Rate 20 34 H 18 Blood Pressure 145/69 H 124/66 Pulse Oximetry 95 92 04/15/21 00:10 04/15/21 03:42 04/15/21 05:00 Temperature 99.1 F Pulse Rate 116 H Respiratory Rate 32 H 24 H 35 H Blood Pressure 136/79 Pulse Oximetry 89 L 04/15/21 07:19 04/15/21 07:48 04/15/21 11:31 Temperature 98.0 F Pulse Rate 120 H Respiratory Rate 28 H 20 22 H Blood Pressure 131/65 Pulse Oximetry 96 04/15/21 11:49 04/15/21 15:20 04/15/21 15:34 Temperature 97.7 F 96.5 F L Pulse Rate 113 H 116 H Respiratory Rate 20 24 H 28 H Blood Pressure 120/71 143/65 H Pulse Oximetry 95 90 L Body Mass Index 25.3 Labs Results: 04/13/21 13:58 04/13/21 13:57 Labs: Laboratory Results - last 48 hr 04/14/21 04/15/21 12:52 10:28 ESR 106 H O2 Saturation 91.0 ABG pH at Pt Temp 7.50 H ABG pH (Temp Correct) 7.50 H ABG pCO2 at Pt Temp 39 ABG pCO2 (Temp Corrct 38 ABG pO2 at Pt Temp 69 L ABG pO2 (Temp Correct 66 L ABG HCO3 30 H ABG Base Excess (Actual) 7.3 Imaging Radiology Impressions: ITS Impressions Chest X-Ray 04/07/21 07:33 IMPRESSION: Diffuse bilateral patchy airspace consolidation. Low lung volumes. Chest X-Ray 04/12/21 02:10 IMPRESSION: Low lung volumes. Partially improved bilateral airspace opacities. Mental Status Exam Mental Status Exam Narrative: A&O. In hospital gown, unkempt, overweight. Poor eye contact, inattentive. No Tics or Tremors. No abnormal involuntary movements. Agitated, difficult to engage, uncooperative. Pressured speech, non-spontaneous. Mood is ?in pain,? affect is constricted. Denies SI/SIB/HI upon inquiry. Denies A/VH or delusional thought content. Thoughts are perseverative. No known cognitive or memory impairment. Insight/ Judgment is poor. Medications Medications Current Medications Generic Name Dose Route Start Last Admin Trade Name Freq PRN Reason Stop Dose Admin Acetaminophen 650 mg 04/07/21 12:53 04/12/21 17:59 Acetaminophen 325 Mg Tablet PO 650 mg Q6H PRN Administration Pain, Mild (Pain Scale 1-3) Clonazepam 1 mg 04/13/21 09:55 04/15/21 05:02 Clonazepam 1 Mg Tablet PO 1 mg TID PRN Administration anxiety Cyclobenzaprine HCl 10 mg 04/08/21 08:00 04/14/21 19:59 Cyclobenzaprine Hcl 10 Mg Tablet PO 10 mg TID PRN Administration Muscle Spasm Enoxaparin Sodium 40 mg 04/07/21 13:00 04/15/21 12:33 Enoxaparin Sodium 40 Mg/0.4 Ml Syringe SUBCUT Not Given Q24H GOLDY Famotidine 20 mg 04/15/21 09:00 04/15/21 11:01 Famotidine/Pf 20 Mg/2 Ml Vial IVPUSH Not Given BID GOLDY Fluoxetine HCl 60 mg 04/08/21 09:00 04/15/21 07:53 Fluoxetine Hcl 20 Mg Capsule PO Not Given DAILY GOLDY Guaifenesin/Dextromethorphan 10 ml 04/09/21 15:30 04/15/21 14:29 Guaifenesin Dm 200/20/10 Ml 10 Ml Syrup PO Not Given Q6H GOLDY Hydromorphone HCl 1 mg 04/15/21 09:30 Hydromorphone Hcl 2 Mg/Ml Vial IVPUSH Q12H PRN Pain, Severe (Pain Scale 7-10) Protocol Hydromorphone HCl 1.5 mg 04/15/21 09:16 04/15/21 17:02 Hydromorphone Hcl 2 Mg/Ml Vial IVPUSH 1.5 mg Q4H PRN Administration Discomfort/Shortness of breath Hydroxyzine HCl 25 mg 04/08/21 21:00 04/14/21 19:59 Hydroxyzine Hcl 25 Mg Tablet PO 25 mg BEDTIME GOLDY Administration Doxycycline Hyclate 100 mg/ 250 mls @ 166.67 mls/hr 04/14/21 20:00 04/15/21 09:25 Sodium Chloride IV Infused Q12H GOLDY Infusion Levetiracetam 500 mg in 100 mls @ 400 mls/hr 04/15/21 09:30 04/15/21 11:01 Keppra IV Not Given Q12H GOLDY Methylprednisolone Sodium Succinate 60 mg 04/14/21 23:00 04/14/21 23:35 Methylprednisolone Sod Succ 125 Mg/2 Ml Vial IVPUSH 60 mg Q24H GOLDY Administration Metoprolol Tartrate 5 mg 04/15/21 09:30 04/15/21 14:29 Metoprolol Tartrate 5 Mg/5 Ml Vial IVPUSH Not Given Q6H GOLDY Olanzapine 5 mg 04/08/21 09:00 04/15/21 07:54 Olanzapine 5 Mg Tablet PO Not Given DAILY GOLDY Ondansetron HCl 4 mg 04/10/21 12:23 04/10/21 12:34 Ondansetron Hcl 4 Mg/2 Ml Vial IVPUSH 4 mg Q6H PRN Administration Nausea and Vomiting Pharmacy Consult 1 each 04/07/21 12:58 Consult Rx Perform Med Rec MISCELLANE ONCE PRN Consult order Sodium Chloride 3 ml 04/07/21 16:00 04/15/21 15:24 0.9 % Sodium Chloride Flush 3 Ml Syringe IVFLUSH Not Given QSHIFT GOLDY Trazodone HCl 50 mg 04/08/21 21:00 04/14/21 20:01 Trazodone Hcl 50 Mg Tablet PO 50 mg BEDTIME GOLDY Administration Allergies Allergies Allergy/AdvReac Type Severity Reaction Status Date / Time Penicillins [PCN] Allergy Severe HIVES, Verified 04/04/21 16:54 ANGIOEDEMA fentanyl [FENTANYL] Allergy Intermediate UNKNOWN Verified 04/04/21 16:54 garlic [GARLIC] Allergy Unknown ANAPHYLAXIS Verified 04/04/21 16:54 mustard [MUSTARDS] Allergy Unknown ANAPHYLAXIS Verified 04/04/21 16:54 naproxen [NAPROXEN] Allergy Unknown UNKNOWN Verified 04/04/21 16:54 paroxetine [Paxil] Allergy Unknown Unknown Verified 04/04/21 16:54 penicillin V Allergy Unknown Unknown Verified 04/04/21 16:54 aspirin [ASA] AdvReac Intermediate HIVES, LIP Verified 04/04/21 16:54 SWELLING SUN Allergy Severe BLISTERS, Uncoded 01/12/21 00:15 ABD PAIN, DUE TO PORPHYRIA Assessment & Plan Assessment & Plan (1) Major depressive disorder with psychotic features: Status: Acute Code(s): F32.3 - Major depressive disorder, single episode, severe with psychotic features Assessment and Plan: 45 y.o. Female who presented to [facility] on 04/07/21 complaining of SOB, chest pa in. She has a diagnosis of pulmonary fibrosis with chronic respiratory failure. She is presenting with sx of agitation, disorganized and perseverative thought process, and paranoid delusional ideations. She is currently on prozac 60 mg QD, vistaril, zyprexa 5 mg, trazodone, and klonopin. She has a hx of psychotic sx, depression, and agitation, hx of psych IPLOC. I attempted to call her outpatient psych providers at [facility] for collateral info but they were out of office. -Continue monitoring medically. Patient is not medically cleared. -Patient cannot leave AGAINST MEDICAL ADVICE. -Elba does not have capacity to make medical decisions. She is not demonstrating that she can use the information presented to her about her illness in a rational fashion to reach a decision about her treatment options and she does not appear to have a factual understanding of the situation i.e. she is insisting she is imminently dying ?very soon.? -Elba's medical team will meet on 04/16/21 to discuss treatment options, I recommend implementing her healthcare proxy. ? Greater than 50% of the session was spent on counseling and/or coordination of care
[2021-04-15] MEDS: methylPREDNISolone Sod Succ 125 MG/2 ML VIAL 60 MG IVPUSH (21:19)
[2021-04-15] MEDS: traZODone HCL 50 MG TABLET PO (21:20)
[2021-04-15] MEDS: hydrOXYzine HCL 25 MG TABLET PO (21:20)
[2021-04-15] MEDS: HYDROmorphone HCl 2 MG/ML VIAL 1 MG IVPUSH (21:20)
[2021-04-16] VITALS (14 sets, daily range): BP systolic 91–137; BP diastolic 49–73; PULSE 89–126; RESP 18–28; TEMP 36.3–36.8; O2SAT 84–128
[2021-04-16] MEDS: 0.9 % Sodium Chloride Flush 3 ML SYRINGE IVFLUSH ×2 (01:33→09:10)
[2021-04-16] MEDS: HYDROmorphone HCl 2 MG/ML VIAL 1.5 MG IVPUSH ×5 (03:33→21:35)
[2021-04-16] MEDS: Metoprolol Tartrate 5 MG/5 ML VIAL IVPUSH ×4 (03:34→21:34)
[2021-04-16] MEDS: guaiFENesin DM 200/20/10 ML 10 ML SYRUP PO ×2 (03:34→21:34)
[2021-04-16] MEDS: Famotidine/PF 20 MG/2 ML VIAL IVPUSH ×2 (09:08→21:35)
[2021-04-16] MEDS: OLANZapine 5 MG TABLET PO (09:09)
[2021-04-16] MEDS: FLUoxetine HCl 20 MG CAPSULE 60 MG PO (09:10)
[2021-04-16] MEDS: clonazePAM 1 MG TABLET PO ×2 (09:25→21:34)
[2021-04-16] MEDS: Doxycycline Hyclate 100 MG in 0.9 % Sodium Chloride 250 ML 166.67 MG IV (10:41)
[2021-04-16] MEDS: Acetaminophen 325 MG TABLET 650 MG PO (10:53)
[2021-04-16] MEDS: Cyclobenzaprine HCl 10 MG TABLET PO (10:53)
--- NOTE | 2021-04-16 13:12 | P.PNIM_ITS ---
Subjective Subjective Date of Service: 04/16/21 Interval History: Awake alert this morning complaining of shortness of breath and cough, no acute issues overnight, no fevers, no chills, no headache no dizziness, Review of Systems General no headache, no dizziness. no fever chills.? CVS continues chest pain , Respiratory congested cough, shortness of breath. Gastrointestinal?no nausea , no abdominal pain Physical Exam Vital Signs: Vital Signs: Last Vital Signs Temp 98.0 F 04/16/21 08:00 Pulse 103 H 04/16/21 09:08 Resp 21 H 04/16/21 08:42 BP 108/63 04/16/21 09:08 Pulse Ox 94 04/16/21 08:00 Oxygen Flow Rate 50 04/10/21 00:13 Body Mass Index 25.3 General awake aler t, less short of b reath, talking in full sentences Nec k no JVD. CVS? reg ular rate rhythm, Respiratory lungs coarse breath soun ds bilateral rhonc hi, diminished toño ath sounds. Gastro intestinal abdomen soft, nontender, bowel sounds audib le, no guarding , no rigidity. Extre mities no edema. N euro nonfocal,spee ch clear. Skin no rash Objective Data Current Medications Generic Name Dose Route Start Last Admin Trade Name Freq PRN Reason Stop Dose Admin Acetaminophen 650 mg 04/07/21 12:53 04/16/21 10:53 Acetaminophen 325 Mg Tablet PO 650 mg Q6H PRN Administration Pain, Mild (Pain Scale 1-3) Clonazepam 1 mg 04/13/21 09:55 04/16/21 09:25 Clonazepam 1 Mg Tablet PO 1 mg TID PRN Administration anxiety Cyclobenzaprine HCl 10 mg 04/08/21 08:00 04/16/21 10:53 Cyclobenzaprine Hcl 10 Mg Tablet PO 10 mg TID PRN Administration Muscle Spasm Enoxaparin Sodium 40 mg 04/07/21 13:00 04/15/21 12:33 Enoxaparin Sodium 40 Mg/0.4 Ml Syringe SUBCUT Not Given Q24H GOLDY Famotidine 20 mg 04/15/21 09:00 04/16/21 09:08 Famotidine/Pf 20 Mg/2 Ml Vial IVPUSH 20 mg BID GOLDY Administration Fluoxetine HCl 60 mg 04/08/21 09:00 04/16/21 09:10 Fluoxetine Hcl 20 Mg Capsule PO 60 mg DAILY GOLDY Administration Guaifenesin/Dextromethorphan 10 ml 04/09/21 15:30 04/16/21 09:14 Guaifenesin Dm 200/20/10 Ml 10 Ml Syrup PO Not Given Q6H [facility]Y Hydromorphone HCl 1.5 mg 04/15/21 09:16 04/16/21 09:22 Hydromorphone Hcl 2 Mg/Ml Vial IVPUSH 1.5 mg Q4H PRN Administration Discomfort/Shortness of breath Hydroxyzine HCl 25 mg 04/08/21 21:00 04/15/21 21:20 Hydroxyzine Hcl 25 Mg Tablet PO 25 mg BEDTIME [facility] Administration Levetiracetam 500 mg in 100 mls @ 400 mls/hr 04/15/21 09:30 04/16/21 09:14 Keppra IV Not Given Q12H [facility]Y Vancomycin HCl 1,250 mg/ 250 mls @ 166.667 mls/hr 04/17/21 00:00 Sodium Chloride IV Q12H [facility]Y Methylprednisolone Sodium Succinate 60 mg 04/14/21 23:00 04/15/21 21:19 Methylprednisolone Sod Succ 125 Mg/2 Ml Vial IVPUSH 60 mg Q24H [facility] Administration Metoprolol Tartrate 5 mg 04/15/21 09:30 04/16/21 09:08 Metoprolol Tartrate 5 Mg/5 Ml Vial IVPUSH 5 mg Q6H [facility] Administration Olanzapine 5 mg 04/08/21 09:00 04/16/21 09:09 Olanzapine 5 Mg Tablet PO 5 mg DAILY GOLDY Administration Ondansetron HCl 4 mg 04/10/21 12:23 04/10/21 12:34 Ondansetron Hcl 4 Mg/2 Ml Vial IVPUSH 4 mg Q6H PRN Administration Nausea and Vomiting Pharmacy Consult 1 each 04/07/21 12:58 Consult Rx Perform Med Rec MISCELLANE ONCE PRN Consult order Pharmacy Consult 1 each 04/16/21 11:04 Consult Rx Vancomycin Dosing MISCELLANE DAILY PRN Consult order Sodium Chloride 3 ml 04/07/21 16:00 04/16/21 09:10 0.9 % Sodium Chloride Flush 3 Ml Syringe IVFLUSH 3 ml QSHIFT GOLDY Administration Trazodone HCl 50 mg 04/08/21 21:00 04/15/21 21:20 Trazodone Hcl 50 Mg Tablet PO 50 mg BEDTIME GOLDY Administration Labs CBC & Chem 7: 04/13/21 13:58 04/13/21 13:57 Assessment and Plan (1) Major depressive disorder with psychotic features: Status: Acute (2) History of interstitial lung disease: Status: Acute (3) Scleroderma involving lung: Status: Acute (4) Respiratory failure, acute and chronic: Status: Acute (5) Pneumonia: Status: Acute (6) Seizure disorder: Status: Acute (7) Intractable pain: Status: Acute Assessment and Plan: 45-year-old female with past medical history of pulmonary fibrosis/interstitial lung disease who is currently on palliative care and possibly going to hospice although she has not made a decision yet presents with fever, shortness of breath, cough, and intractable chest pain. # acute on chronic respiratory failure due to hosp. acquired pneumonia with underlying pulmonary fibrosis/ interstitial lung disease with hx of scleroderma. ?? Appears less short of breath more awake alert and cooperative this morning ?? On high-flow oxygen 94%, last night noted to have deep in oxygenation Will repeat CT chest today for follow-up ?? continue IV Levaquin and changed to IV vancomycin, has allergy to penicillin, DC doxycycline ?? Continue IV steroids 40 mg daily, status post pulse dose IV steroid, continue updraft treatment, cough medication, iv Pepcid for GI prophylaxis ?? Blood cultures x2 are negative, COVID-19 negative Patient continue to refuse medications, family has been made aware ?? Patient seen by psych and they deemed her incompetent, therefore will invoke healthcare proxy Had a family discussion with the presence Dr. Ayala from pulmonology, , sister, [id number] and discuss goal of care, is the healthcare proxy and will be making decisions, in consultation with other family members , they have been made aware of comfort care versus hospice, they have also been informed about patient's guarded condition. They all agreed upon continued DNR and DNI. #. Sepsis due to pneumonia.? ? ? Resolving sepsis, leukocytosis secondary to steroid, lactic acid normalized,, continue IV antibiotic and supportive care as above #. Intractable pain with deep breathing.? continue IV Dilaudid 1.5 mg Q 4 hour due to persistent pain, patient keeps demanding for higher dose of narcotic history of substance abuse in the past, will continue current dosage Cannot escalate pain medicine to avoid respiratory depression. ? ? #. History of seizures.? Continue Keppra 500 mg b.i.d. take seizure precautions, ?patient is refusing by mouth medications, will switch to IV Keppra ? # PTSD - continue home medications DVT prophylaxis:? On Lovenox Quality Stroke Does the patient have a stroke diagnosis?: No VTE Prior VTE?: No VTE Risk Level:: Medical - moderate - high VTE Device Contraindication: Treatment Not Indicated VTE Drug Contraindication: N/A - Med Ordered
[2021-04-16] MEDS: Enoxaparin Sodium 40 MG/0.4 ML SYRINGE SUBCUT (13:33)
[2021-04-16] MEDS: iohexoL 350 MG/ML 100 ML INFUS..BTL IV (14:40)
[2021-04-16] MEDS: vancomycin HCL 1,500 MG in 0.9 % Sodium Chloride 500 ML 333.33 MG IV (15:13)
--- NOTE | 2021-04-16 19:45 | PM.PNPUL ---
Subjective Subjective Date of Service: 04/16/21 Interval history: Seen and examined. MAintained on BIPAP over night. HF this am. Continue with dysnea and respiratory distress. Requiring high opiod use. On IV abx and IV somumedrol. Psych deemed her not compentent. Her family came in for a family meeting. They undersatnd the severity of her condition and the concern of not responding to aggressive medical care and or getting worse. She continues to be DNR/DNI. Objective Data Labs CBC & Chem 7: 04/13/21 13:58 04/13/21 13:57 Microbiology Microbiology Results: Microbiology 04/07/21 09:45 Blood - Venous Blood Culture - Final No growth after 5 days. 04/07/21 08:00 Blood - Venous Blood Culture - Final No growth after 5 days. Review of Systems Review of Systems Constitutional : +malaise ENT/Mouth : No Hearing loss, No Ear Pain, No Nasal Congestion, No Sinus Pain, No Hoarseness, No sore throat, No Rhinorrhea, No Swallowing Difficulty Eyes: No Eye Pain, No Swelling, No Redness, No Foreign Body, No Discharge, No Vision Changes Cardiovascular : Complaining of chronic Chest Pain, unchanged since left against medical advice, complaining of worsening shortness of breath Respiratory : +Cough, dyspnea Gastrointestinal : No Nausea, No Vomiting, No Diarrhea, No Constipation, No abdominal Pain, No Hematochezia, No Melena Genitourinary : no irregular bleeding, No Dysuria, No Urinary Frequency, No Hematuria, No Urinary Incontinence, No Urgency, No Flank Pain, No Urinary Flow Changes, No Hesitancy Musculoskeletal : No joint pain, complaining of generalized myalgias, No Joint Swelling Skin : No Skin Lesions, No rash Neuro : +pain Dizziness, No Headache Physical Exam Vital Signs: Vital Signs: Last Vital Signs Temp 97.8 F 04/16/21 19:15 Pulse 126 H 04/16/21 19:15 Resp 22 H 04/16/21 19:15 BP 110/62 04/16/21 19:15 Pulse Ox 87 L 04/16/21 19:15 Oxygen Flow Rate 50 04/10/21 00:13 Body Mass Index 25.3 Const: General: alert Neck: Neck: Yes normal visual inspection, Yes full ROM and Yes no lymphadenopathy Chest: Chest palpation & inspection: normal inspection of the chest Resp: Auscultation: crackles bilateral and diminished lung sounds Cardio: Rate: regular rate Rhythm: regular rhythm Heart sounds: S1 normal heart sound present and S2 normal heart sound present GI: Palpation (GI): Soft to palpation and nontender Auscultation: normal bowel sounds Skin: General skin exam: rashes and/or lesions noted Procedures Date of Service Date of Service: 04/16/21 Assessment and Plan Assessment and plan (1) Scleroderma involving lung: Status: Acute (2) Respiratory failure, acute and chronic: Status: Acute (3) Pneumonia: Status: Acute Assessment and Plan: vanco/levaquin Solumedrol CTA HF/BIPAP pain management DNR/DNI guarded condition Time Spent With Patient Time: Total time spent is greater than 50% in coordination of care (as documented) at patient's floor/unit and/or counseling patient: Time with patient: 25 - 35 minutes Progress Note: Quality Stroke Does the patient have a stroke diagnosis?: No
[2021-04-16] MEDS: hydrOXYzine HCL 25 MG TABLET PO (21:34)
[2021-04-16] MEDS: traZODone HCL 50 MG TABLET PO (21:34)
[2021-04-16] MEDS: levETIRAcetam in NaCl (iso-os) 500 MG/100 ML PIGGYBACK 400 MG IV (21:35)
[2021-04-17] VITALS (16 sets, daily range): BP systolic 120–141; BP diastolic 70–90; PULSE 78–129; RESP 18–42; TEMP 35.7–37; O2SAT 70–124
[2021-04-17] MEDS: methylPREDNISolone Sod Succ 125 MG/2 ML VIAL 60 MG IVPUSH ×2 (01:08→21:14)
[2021-04-17] MEDS: 0.9 % Sodium Chloride Flush 3 ML SYRINGE IVFLUSH ×3 (01:09→20:39)
[2021-04-17] MEDS: vancomycin HCL 1,250 MG in 0.9 % Sodium Chloride 250 ML 166.67 MG IV (01:09)
[2021-04-17] MEDS: HYDROmorphone HCl 2 MG/ML VIAL 1.5 MG IVPUSH ×6 (01:23→20:38)
[2021-04-17] MEDS: guaiFENesin DM 200/20/10 ML 10 ML SYRUP PO (04:55)
[2021-04-17] MEDS: Metoprolol Tartrate 5 MG/5 ML VIAL IVPUSH ×4 (04:55→21:14)
[2021-04-17 07:46] LABS: Estimated Glomerular Filt Rate > 60
[2021-04-17] MEDS: Famotidine/PF 20 MG/2 ML VIAL IVPUSH ×2 (08:42→20:39)
[2021-04-17] MEDS: OLANZapine 5 MG TABLET PO (08:43)
[2021-04-17] MEDS: FLUoxetine HCl 20 MG CAPSULE 60 MG PO (08:43)
[2021-04-17] MEDS: clonazePAM 1 MG TABLET PO (08:45)
[2021-04-17] MEDS: Furosemide 20 MG/2 ML VIAL IVPUSH (10:26)
--- NOTE | 2021-04-17 11:46 | P.PNIM_ITS ---
Subjective Subjective Date of Service: 04/17/21 Interval History: Events from last night reviewed, patient became hypoxic with oxygenation and 70s placed on high-flow and non-rebreather mask currently 92% on room air, remains tachypneic tachycardic, requesting for higher dose of narcotics, complains that pain is not being managed, and [id number] at bedside. Review of Systems General no headache, no dizziness. no fever chills, generalized pain CVS continues chest pain Respiratory cough, shortness of breath. Gastrointestinal?no nausea , no abdominal pain Physical Exam Vital Signs: Vital Signs: Last Vital Signs Temp 96.3 F L 04/17/21 08:00 Pulse 129 H 04/17/21 08:42 Resp 42 H 04/17/21 09:56 BP 120/70 04/17/21 08:42 Pulse Ox 92 04/17/21 03:58 Oxygen Flow Rate 50 04/10/21 00:13 Body Mass Index 25.3 General in respiratory distress, significant tachypnea Neck no JVD. CVS? regular rate rhythm, Respiratory lungs coarse breath sounds with bilateral rhonchi Gastrointestinal abdomen soft, nontender, bowel sounds audible, no guarding , no rigidity. Extremities no edema. Neuro nonfocal , speech clear. Skin no rash Objective Data Current Medications Generic Name Dose Route Start Last Admin Trade Name Freq PRN Reason Stop Dose Admin Acetaminophen 650 mg 04/07/21 12:53 04/16/21 10:53 Acetaminophen 325 Mg Tablet PO 650 mg Q6H PRN Administration Pain, Mild (Pain Scale 1-3) Clonazepam 1 mg 04/13/21 09:55 04/17/21 08:45 Clonazepam 1 Mg Tablet PO 1 mg TID PRN Administration anxiety Cyclobenzaprine HCl 10 mg 04/08/21 08:00 04/16/21 10:53 Cyclobenzaprine Hcl 10 Mg Tablet PO 10 mg TID PRN Administration Muscle Spasm Enoxaparin Sodium 40 mg 04/07/21 13:00 04/16/21 13:33 Enoxaparin Sodium 40 Mg/0.4 Ml Syringe SUBCUT 40 mg Q24H GOLDY Administration Famotidine 20 mg 04/15/21 09:00 04/17/21 08:42 Famotidine/Pf 20 Mg/2 Ml Vial IVPUSH 20 mg BID GOLDY Administration Fluoxetine HCl 60 mg 04/08/21 09:00 04/17/21 08:43 Fluoxetine Hcl 20 Mg Capsule PO 60 mg DAILY GOLDY Administration Guaifenesin/Dextromethorphan 10 ml 04/09/21 15:30 04/17/21 08:59 Guaifenesin Dm 200/20/10 Ml 10 Ml Syrup PO Not Given Q6H GOLDY Hydromorphone HCl 1.5 mg 04/15/21 09:16 04/17/21 08:42 Hydromorphone Hcl 2 Mg/Ml Vial IVPUSH 1.5 mg Q4H PRN Administration Discomfort/Shortness of breath Hydroxyzine HCl 25 mg 04/08/21 21:00 04/16/21 21:34 Hydroxyzine Hcl 25 Mg Tablet PO 25 mg BEDTIME [facility] Administration Levetiracetam 500 mg in 100 mls @ 400 mls/hr 04/15/21 09:30 04/17/21 08:59 Keppra IV Not Given Q12H [facility] Vancomycin HCl 1,250 mg/ 250 mls @ 166.667 mls/hr 04/17/21 00:00 04/17/21 04:57 Sodium Chloride IV Infused Q12H [facility] Infusion Trimethoprim/Sulfamethoxazole 520 mls @ 225 mls/hr 04/17/21 12:00 320 mg/ Dextrose IV Q8H [facility] Acyclovir Sodium 275 mg/ 105.5 mls @ 109.991 mls/hr 04/17/21 12:00 Dextrose IV Q8H [facility] Methylprednisolone Sodium Succinate 60 mg 04/14/21 23:00 04/17/21 01:08 Methylprednisolone Sod Succ 125 Mg/2 Ml Vial IVPUSH 60 mg Q24H GOLDY Administration Metoprolol Tartrate 5 mg 04/15/21 09:30 04/17/21 08:42 Metoprolol Tartrate 5 Mg/5 Ml Vial IVPUSH 5 mg Q6H G[facility]Y Administration Olanzapine 5 mg 04/08/21 09:00 04/17/21 08:43 Olanzapine 5 Mg Tablet PO 5 mg DAILY GOLDY Administration Ondansetron HCl 4 mg 04/10/21 12:23 04/10/21 12:34 Ondansetron Hcl 4 Mg/2 Ml Vial IVPUSH 4 mg Q6H PRN Administration Nausea and Vomiting Pharmacy Consult 1 each 04/07/21 12:58 Consult Rx Perform Med Rec MISCELLANE ONCE PRN Consult order Pharmacy Consult 1 each 04/16/21 11:04 Consult Rx Vancomycin Dosing MISCELLANE DAILY PRN Consult order Sodium Chloride 3 ml 04/07/21 16:00 04/17/21 10:36 0.9 % Sodium Chloride Flush 3 Ml Syringe IVFLUSH 3 ml QSHIFT GOLDY Administration Trazodone HCl 50 mg 04/08/21 21:00 04/16/21 21:34 Trazodone Hcl 50 Mg Tablet PO 50 mg BEDTIME GOLDY Administration Labs CBC & Chem 7: 04/13/21 13:58 04/17/21 06:52 Labs: Laboratory Results - last 24 hr 04/17/21 06:52 Estim Creat Clear Calc 88.0 Estimated GFR > 60 Assessment and Plan (1) Major depressive disorder with psychotic features: Status: Acute (2) History of interstitial lung disease: Status: Acute (3) Scleroderma involving lung: Status: Acute (4) Respiratory failure, acute and chronic: Status: Acute (5) Pneumonia: Status: Acute (6) Seizure disorder: Status: Acute (7) Intractable pain: Status: Acute Assessment and Plan: 45-year-old female with past medical history of pulmonary fibrosis/interstitial lung disease who is currently on palliative care and possibly going to hospice although she has not made a decision yet presents with fever, shortness of breath, cough, and intractable chest pain. # acute on chronic respiratory failure due to hosp. acquired pneumonia with underlying pulmonary fibrosis/ interstitial lung disease with hx of scleroderma. ?? Persistent shortness of breath, with tachypnea and tachycardia, oxygenation d ropped overnight now on 100% non-rebreather and high-flow oxygen ?? repeat CT chest 04/16 showed progression of underlying disease with bilateral ground-glass opacities ?? On IV Levaquin and IV vancomycin day 2, IV steroid 40 mg daily, status post pulse dose IV steroid, on updraft treatment, cough medication, iv Pepcid for GI prophylaxis ?? Blood cultures x2 are negative, COVID-19 negative ?? Patient seen by psych and they deemed her incompetent, therefore will invoke healthcare proxy Taran Schwartz [phone] ?? Had family discussion on 04/[address] Ayala from pulmonology, , sister, [id number]? and discuss goal of care, is the healthcare proxy and will be making ?? decisions, in consultation with other family members , they have been made aware of comfort care versus hospice, they have also been informed about patient's guarded condition. ?? They all agreed upon continued DNR and DNI. Due to increased requirement of oxygen and worsening CT chest will add IV Bactrim to cover PCP add IV acyclovir, give 1 dose of IV Lasix as per Pulmonary recommendation and DC IV Levaquin Spoke with again today informed him about guarded condition #. Sepsis due to pneumonia.? ? ? Resolving sepsis, leukocytosis secondary to steroid, lactic acid normalized,, continue IV antibiotic and supportive care as above #. Intractable pain with deep breathing.? continue IV Dilaudid 1.5 mg Q 4 hour due to persistent pain, patient keeps demanding for higher dose of narcotic history of substance abuse in the past, will continue current dosage ? ? Will add Dilaudid 0.5 mg at a.m. as per patient's request. ? ? #. History of seizures.? Continue Keppra 500 mg b.i.d. take seizure precautions, ?patient is refusing by mouth medications, therefore on IV Keppra ? # PTSD - continue home medications DVT prophylaxis:? On Lovenox Quality Stroke Does the patient have a stroke diagnosis?: No VTE Prior VTE?: No VTE Risk Level:: Medical - moderate - high VTE Device Contraindication: Treatment Not Indicated VTE Drug Contraindication: N/A - Med Ordered
[2021-04-17] MEDS: vancomycin HCL 1,250 MG in 0.9 % Sodium Chloride 250 ML 166.6 MG IV ×2 (13:13→23:46)
[2021-04-17] MEDS: Sulfamethoxazole/Trimethoprim 320 MG in Dextrose 5 % 500 ML 225 MG IV ×2 (14:40→20:53)
[2021-04-17] MEDS: Enoxaparin Sodium 40 MG/0.4 ML SYRINGE SUBCUT (14:48)
--- NOTE | 2021-04-17 17:55 | PC.NURSE ---
Patient on 100% nonrebreather and 100% high flow. 02 sat 75-88%. Desating very frequently to the 60s with any movement or activity. and family at bedside. MD at bedside to discuss with family the prognosis of patient. Family/ verbally understood poor prognosis at this time. New order for 20mg IV lasix, IV bactrium, and IV acyclovir. Patient upset/agitated about pain management and frequently requesting IV pain medication to be increased. MD at bedside with this RN to re-educate patient on pain management regimen/plan due to respiratory failure. Repositioning q2 hrs. Interiano catheter leaking. New 16F interiano inserted, patient tolerated well. Yellow urine output noted in catheter. IV dilaudid 1.5mg last given at 1645. At this time patient repositioned to left side, resting comfortably with bipap in place. O2 sat 75-88%.
[2021-04-17] MEDS: hydrOXYzine HCL 25 MG TABLET PO (20:39)
[2021-04-17] MEDS: traZODone HCL 50 MG TABLET PO (20:39)
[2021-04-17 23:17] LABS: Vancomycin Trough 10.7 mcg/mL (10.0-20.0)
[2021-04-18] VITALS (10 sets, daily range): BP systolic 128–145; BP diastolic 62–83; PULSE 73–125; RESP 20–30; TEMP 36.5–37.1; O2SAT 70–88
[2021-04-18] MEDS: Metoprolol Tartrate 5 MG/5 ML VIAL IVPUSH ×3 (02:52→16:39)
[2021-04-18] MEDS: HYDROmorphone HCl 2 MG/ML VIAL 1.5 MG IVPUSH ×4 (02:52→16:41)
[2021-04-18] MEDS: Sulfamethoxazole/Trimethoprim 320 MG in Dextrose 5 % 500 ML 225 MG IV ×2 (04:05→13:46)
[2021-04-18 04:56] LABS: Basophils Percent Auto 0.1 % (0-2); Hematocrit 26.7 % (37-47); Hemoglobin 8.1 g/dl (12.0-16.0); Imm Gran Abs Auto 0.51 X10*3/uL (0.00-0.03); Imm Gran Pct Auto 2.2 % (0.0-0.4); Lymphocytes Absolute Auto 0.8 X10*3/uL (1.2-4.9); Lymphocytes Percent Auto 3.3 % (20-40); MANUAL DIFF FLAG SCAN; Mean Corpuscular HGB Conc 30.3 g/dl (31.0-35.0); Mean Corpuscular Hemoglobin 25.3 pg (27.0-33.0); Mean Corpuscular Volume 83.4 fL (80-98); Monocytes Absolute Auto 0.5 X10*3/uL (0.1-1.2); Monocytes Percent Auto 2.3 % (2-11); NRBC Pct Auto 0.1 /100WBC (0.0-0.2); Neutrophils Absolute Auto 21.2 X10*3/uL (2.0-8.3); Neutrophils Percent Auto 92.1 % (45-73); Platelet Count 659 X10*3/uL (160-400); Red Cell Distribution Width 15.3 % (11.0-16.0); SCAN SMEAR FLAG 1; White Blood Count 23.1 X10*3/uL (4.8-10.8)
[2021-04-18 05:06] LABS: SLIDE REVIEW VERIFIED
[2021-04-18 05:21] LABS: Anion Gap 18 (12-20); Blood Urea Nitrogen 14 mg/dL (9-16); Carbon Dioxide 27 mmol/L (22-29); Chloride 97 mmol/L (96-108); Creatinine Clr Calc Pharmacy 85.7; Estimated Glomerular Filt Rate > 60; Glucose Random 218 mg/dL (60-115); Potassium 3.9 mmol/L (3.3-5.1); Sodium 138 mmol/L (135-145)
[2021-04-18] MEDS: HYDROmorphone HCl 0.5 MG/0.5 ML SYRINGE IVPUSH (08:29)
[2021-04-18] MEDS: Famotidine/PF 20 MG/2 ML VIAL IVPUSH (08:32)
[2021-04-18] MEDS: 0.9 % Sodium Chloride Flush 3 ML SYRINGE IVFLUSH ×2 (08:36→16:40)
--- NOTE | 2021-04-18 12:38 | MHC.CM.PN ---
hvns will be into see pt re hospice care
--- NOTE | 2021-04-18 12:44 | MHC.CLN ---
F/U PO INTAKE CONTINUES TO BE VARIABLE DIET RX: REGULAR-APPROPRIATE ENSURE BID TO INCREASE KCALS/NUTRITION (700 KCALS, 40 G PROTEIN) MONITOR PO INTAKE CLOSELY
[2021-04-18] MEDS: Enoxaparin Sodium 40 MG/0.4 ML SYRINGE SUBCUT (13:46)
--- NOTE | 2021-04-18 14:22 | MHC.CM.PN ---
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
--- NOTE | 2021-04-18 16:32 | P.ACPN_ITS ---
Advanced Care Planning Note Advanced Care Planning Note Discussed with: patient and family member(s) Time spent (in minutes): 20 Narrative: * Pt on BiPAp 12/6 with fiO2 100% and SaO2 only in mid 80s. Very poor prognosis, recognized by pt and her [HCP] and her family. Priority at this point is comfort. Pt recognizes her lifespan is limited. She is interested in hospice and referral will be made. Hospice would be inpt given her oxygen requirements. * Problems Discussed (1) Major depressive disorder with psychotic features: (2) History of interstitial lung disease: (3) Scleroderma involving lung: (4) Respiratory failure, acute and chronic: (5) Pneumonia: (6) Seizure disorder: (7) Intractable pain:
--- NOTE | 2021-04-18 16:33 | P.DS_ITS ---
DS: Providers Provider Date of Service: 04/18/21 Date of admission: 04/07/21 12:49 Date of discharge: 04/18/21 Primary care physician: Wagner Devries MD Admitting clinician: Niurka Tillman Consults: 04/07/21 11:08 Consult to Pulmonology Routine Consulting Provider: Bull Tadeo Reason for consultation: ild/pneumonia Has provider been notified: No 04/15/21 11:23 Consult to Psychiatry Routine Consulting Provider: Claude Whittington Reason for consultation: behavioral issues/capacity Has provider been notified: No Attending physician on discharge: Hue Hastings DS: Transfer Hospital Acceptance Reason for Transfer: [facility] hospice Name of Facility: [facility] Accepting Provider: Hue Hastings MD DS: Diagnosis Discharge Diagnosis (1) History of interstitial lung disease: Status: Acute (2) Scleroderma involving lung: Status: Acute (3) Respiratory failure, acute and chronic: Status: Acute (4) Pneumonia: Status: Acute (5) Intractable pain: Status: Acute DS: Medications Discharge Medications Home Medications: Inpatient hospice medications to be ordered. DS: Summary Hospital Course Hospital Course: From admission H+P by Dr Tillman from 04/07/21: This is a 45-year-old female patient with past medical history significant for chronic respiratory failure, on 6 L of home oxygen with underlying history of interstitial lung disease; pulmonary fibrosis; history of multiple lung nodules and history of substance abuse, who left [facility] against medical advice yesterday after being admitted for pneumonia and chest pain with deep breathing.? The patient during the hospitalization was also noted to have tonic-clonic seizures and was started on antiepileptic medication.? However, the patient returned back to [facility] today due to symptoms of shortness of breath, fever of 102, and significant chest pain with deep breathing.? The patient is on palliative care at home and plan is to transition to hospice care.? In the emergency room, the patient was noted to be febrile with a temperature of 102.2.? She was hypoxic with finger oximetry of 70s on 6 L as per EMS.? The patient was placed on nonrebreather, oxygen improved to low 90s.? The patient subsequently placed on high-flow oxygen, currently oxygenating well, but the patient complaining of significant chest pain with deep breathing, asking for Dilaudid.? The patient complaining of persistent nausea, no vomiting.? Also complaining of dry cough, no sputum production. Denies any sick contacts.? Denies using any illicit drugs besides her Dilaudid. ?A chest x-ray today showed diffuse bilateral patchy airspace consolidation and low lung volumes.? The patient's recent CT chest on April 04, showed right upper lobe new ground-glass opacity concerning for pneumonia.? The patient is being admitted to [facility] due to acute on chronic hypoxic respiratory failure, hospital-acquired pneumonia, and intractable pain. The patient was admitted to the [facility]. COVID-19 testing was negative. Pulmonology was consulted. She was treated with steroids, and when she failed to improve pulse-dose steroids, then broad-spectrum antibiotics and antivirals. PCT demonstrated worsening progression of her undrlying disease with bilateral ground-glass opacities. Unfortunately, her respiratory status worsened to the point where she was maintaining SaO2 of only 88% despite [id number] BiPAP on 12/6 cm H20 with fiO2 100%. In consultation with her healthcare proxy and family members, the patient was transitioned to inpatient [facility] hospice for relief of respiratory distress and uncontrolled pain. Time Spent with Patient Time attestation: Total time spent providing and/or coordinating discharge services: 35 Discharge coordination time: Greater than 30 minutes Quality: Stroke Does the patient have a stroke diagnosis?: No Physical Exam Vital Signs: Vital Signs: Last Vital Signs Temp 98.7 F 04/18/21 15:15 Pulse 73 04/18/21 15:15 Resp 20 04/18/21 15:15 BP 128/83 04/18/21 15:15 Pulse Ox 88 L 04/18/21 15:15 Oxygen Flow Rate 50 04/10/21 00:13 Body Mass Index 25.3 Gen: short of breath and in pain, chronically ill Neck: supple Lungs: coarse breath sounds bilaterally, on BiPAP 12/6 cm H2O with fiO2 100% Heart: regular rate and rhythm, no murmurs Abd: soft, non-tender, non-distended Ext: no edema Skin: warm/well-perfused Neuro: alert and oriented x3, no focal findings Psych: appropriate affect DS: Data Data Completed and Pending Labs on day of discharge: Laboratory Results WBC 23.1 X10*3/uL (4.8-10.8) H 04/18/21 04:22 RBC 3.20 X10*6/uL (4.20-5.50) L 04/18/21 04:22 Hgb 8.1 g/dl (12.0-16.0) L 04/18/21 04:22 Hct 26.7 % (37-47) L 04/18/21 04:22 MCV 83.4 fL (80-98) 04/18/21 04:22 MCH 25.3 pg (27.0-33.0) L 04/18/21 04:22 MCHC 30.3 g/dl (31.0-35.0) L 04/18/21 04:22 RDW 15.3 % (11.0-16.0) 04/18/21 04:22 Plt Count 659 X10*3/uL (160-400) H D 04/18/21 04:22 MPV 9.0 fL (9.4-12.3) L 04/18/21 04:22 Immature Gran % (Auto) 2.2 % (0.0-0.4) H 04/18/21 04:22 Neut % (Auto) 92.1 % (45-73) H 04/18/21 04:22 Lymph % (Auto) 3.3 % (20-40) L 04/18/21 04:22 Garland % (Auto) 2.3 % (2-11) 04/18/21 04:22 Eos % (Auto) 0.0 % (0-4) 04/18/21 04:22 Baso % (Auto) 0.1 % (0-2) 04/18/21 04:22 Lymph # (Auto) 0.8 X10*3/uL (1.2-4.9) L 04/18/21 04:22 Garland # (Auto) 0.5 X10*3/uL (0.1-1.2) 04/18/21 04:22 Eos # (Auto) 0.0 X10*3/uL (0.0-0.4) 04/18/21 04:22 Baso # (Auto) 0.0 X10*3/uL (0.0-0.2) 04/18/21 04:22 Abs Immat Gran (auto) 0.51 X10*3/uL (0.00-0.03) H 04/18/21 04:22 Absolute Neuts (auto) 21.2 X10*3/uL (2.0-8.3) H 04/18/21 04:22 Absolute Nucleated RBC 0.030 X10*3/uL (0.0-0.012) H 04/18/21 04:22 Nucleated RBC % (auto) 0.1 /100WBC (0.0-0.2) 04/18/21 04:22 Smear Tech's Comments VERIFIED 04/18/21 04:22 ESR 106 MM/HR (0-20) H 04/15/21 10:28 PT 13.3 SEC (9.9-13.0) H 04/07/21 09:45 INR 1.2 (0.9-1.1) H 04/07/21 09:45 D-Dimer 1012 NG/ML 04/13/21 13:57 O2 Saturation 91.0 % 04/14/21 12:52 ABG pH at Pt Temp 7.50 (7.35-7.45) H 04/14/21 12:52 ABG pH (Temp Correct) 7.50 (7.35-7.45) H 04/14/21 12:52 ABG pCO2 at Pt Temp 39 mmHg (32-45) 04/14/21 12:52 ABG pCO2 (Temp Corrct 38 mmHg (32-45) 04/14/21 12:52 ABG pO2 at Pt Temp 69 mmHg (83-108) L 04/14/21 12:52 ABG pO2 (Temp Correct 66 (83-108) L 04/14/21 12:52 ABG HCO3 30 mmol/L (22-26) H 04/14/21 12:52 ABG Base Excess (Actual) 7.3 mmol/L 04/14/21 12:52 VBG pH 7.43 (7.32-7.43) 04/07/21 09:53 VBG pCO2 40 mmHg 04/07/21 09:53 VBG pO2 50 mmHg 04/07/21 09:53 VBG HCO3 27 mmol/L (22-26) H 04/07/21 09:53 VBG O2 Saturation 79.0 % 04/07/21 09:53 VBG Base Excess 3.4 mmol/L 04/07/21 09:53 Sodium 138 mmol/L (135-145) 04/18/21 04:22 Potassium 3.9 mmol/L (3.3-5.1) 04/18/21 04:22 Chloride 97 mmol/L (96-108) 04/18/21 04:22 Carbon Dioxide 27 mmol/L (22-29) 04/18/21 04:22 Anion Gap 18 (12-20) 04/18/21 04:22 BUN 14 mg/dL (9-16) 04/18/21 04:22 Creatinine 0.78 mg/dL (0.5-1.4) 04/18/21 04:22 Estim Creat Clear Calc 85.7 04/18/21 04:22 Estimated GFR > 60 04/18/21 04:22 POC Glucose 181 mg/dL (60-115) H 04/10/21 00:02 Random Glucose 218 mg/dL (60-115) H D 04/18/21 04:22 Lactic Acid 1.7 mmol/L (0.5-2.0) 04/13/21 13:57 Lactic Acid Fup @ 2Hr 4.2 mmol/L (0.5-2.0) H* 04/07/21 12:17 Lactic Acid Fup @ 4Hr 3.7 mmol/L (0.5-2.0) H* 04/07/21 14:35 Calcium 8.0 mg/dL (8.4-10.2) L 04/18/21 04:22 Total Bilirubin 0.4 mg/dL (0.0-1.0) 04/07/21 09:45 Direct Bilirubin 0.2 mg/dL (0.0-0.5) 04/07/21 09:45 AST 29 U/L (5-31) 04/07/21 09:45 ALT 15 U/L (0-31) 04/07/21 09:45 Alkaline Phosphatase 71 U/L (39-117) 04/07/21 09:45 Troponin I High Sens < 3.5 ng/L (<3.5-17.0) 04/13/21 13:57 B-Natriuretic Peptide < 10 pg/mL (<100) 04/13/21 13:57 Total Protein 6.0 g/dL (6.5-8.0) L 04/07/21 09:45 Albumin 3.6 g/dL (3.5-5.0) 04/07/21 09:45 Beta HCG, Quant < 2 mIU/mL 04/07/21 09:45 Urine Color YELLOW 04/13/21 13:17 Urine Appearance HAZY 04/13/21 13:17 Urine pH 7.0 (5.0-8.0) 04/13/21 13:17 Ur Specific Champion 1.015 (1.005-1.025) 04/13/21 13:17 Urine Protein 1+ MG/DL (NEG-TRACE) H 04/13/21 13:17 Urine Glucose (UA) NEG MG/DL (NEG) 04/13/21 13:17 Urine Ketones NEG MG/DL (NEG) 04/13/21 13:17 Urine Blood 3+ (NEG) H 04/13/21 13:17 Urine Nitrite NEG (NEG) 04/13/21 13:17 Ur Leukocyte Esterase NEG (NEG) 04/13/21 13:17 Urine RBC 50-75 /HPF (0) H 04/13/21 13:17 Urine WBC 0-2 /HPF (0-4) 04/13/21 13:17 Ur Squamous Epith Cells 1+ /LPF 04/13/21 13:17 Urine Bacteria NONE /LPF 04/13/21 13:17 Vancomycin Trough 10.7 mcg/mL (10.0-20.0) 04/17/21 22:45 Urine Opiates Screen Not Detected (Not Detect) 04/07/21 09:34 Urine Fentanyl Screen Not Detected (Not Detect) 04/07/21 09:34 Ur Barbiturates Screen Not Detected (Not Detect) 04/07/21 09:34 Ur Phencyclidine Scrn Not Detected (Not Detect) 04/07/21 09:34 Ur Amphetamines Screen Not Detected (Not Detect) 04/07/21 09:34 U Benzodiazepines Scrn Not Detected (Not Detect) 04/07/21 09:34 Urine Cocaine Screen Not Detected (Not Detect) 04/07/21 09:34 U Marijuana (THC) Screen POSITIVE (Not Detect) H 04/07/21 09:34 Coronavirus (PCR) NEGATIVE (Negative) 04/07/21 08:05 COVID-19 (VAN) Negative (Negative) 04/13/21 13:15 COVID-19 Clin Com See Note 04/13/21 13:15 Influenza Type A (PCR) NEGATIVE (Negative) 04/07/21 08:05 Influenza Type B (PCR) NEGATIVE (Negative) 04/07/21 08:05 RSV RNA Qual (PCR) NEGATIVE (Negative) 04/07/21 08:05 Impressions Chest X-Ray 04/15/21 11:46 IMPRESSION: Persistent airspace opacity at left lung base. No significant change since chest x-ray April 12, 2021. Chest CTA 04/16/21 14:45 IMPRESSION: Extensive diffuse nonspecific groundglass airspace disease is noted throughout both lung arteaga, shows significant interval progression since 04/04/2021 with evidence of prominent prevascular as well as right paratracheal mediastinal lymph nodes, likely reactive. There are groundglass airspace disease is nonspecific however, possible differential diagnostic consideration is given as above. Discharge Plan Discharge Anticipated Discharge Date/Time: 04/18/21 16:29 Patient Disposition: Hospice - Medical Facility Discharge Diagnosis: acute/chronic hypoxic respiratory failure Referrals: Wagner Devries MD [Primary Care Provider] - 1 Week Discharge Medications: Discontinued cyclobenzaprine 10 mg tablet 10 mg PO TID PRN (Reason: Muscle Spasm) RF: 0 trazodone 50 mg tablet 50 mg PO BEDTIME RF: 0 clonazepam 1 mg tablet 1 mg PO TID PRN (Reason: Anxiety) RF: 0 hydroxyzine HCl 25 mg tablet 25 mg PO BEDTIME RF: 0 metoprolol succinate 25 mg tablet extended release 24 hr 25 mg PO DAILY RF: 0 fluoxetine 20 mg capsule 60 mg PO DAILY RF: 0 prednisone 20 mg tablet 20 mg PO DAILY RF: 0 sulfamethoxazole-trimethoprim 800-160 mg tablet 1 tab PO MOWEFR RF: 0 olanzapine 10 mg tablet 5 mg PO DAILY RF: 0 hydromorphone 2 mg tablet 2 mg PO QID RF: 0 doxycycline hyclate 100 mg capsule 100 mg PO BID RF: 0 loratadine 10 mg Tablet 10 mg PO DAILY RF: 0 Discharge Orders: Discharge Order (Routine); Ordered 04/18/21 Ordered By: Hue Hastings Diet: advance to usual diet Activity on Discharge: As tolerated Stand Alone Forms: Patient Portal Discharge page Care Plan Goals: comfort Health Concerns: respiratory failure Plan of Treatment: transfer to [facility] hospice Assessment: as above Patient Instructions: Hospice Care (GEN)
[2021-04-20 16:16] LABS: Legionella Ag Urine Not Detected (Not Detected)
[2021-04-21 18:26] LABS: Strep Pneumo Ag urine Not Detected (Not Detected)
== END 2021-04-18 17:12 | disposition hospice, inpatient (51) | DRG 720 ==
LOC: HO.ED 10:53 → HO.EDOVER 13:04 → HO.IMC 16:01
PROVIDERS: Family Medicine; Hospitalist; Nurse Practitioner Acute Care; Admitting Provider Hospitalist; Emergency Provider Emergency Medicine; PCP Internal Medicine; Visit Provider Family Medicine
DX: A41.9 Sepsis, unspecified organism (principal); J96.21 Acute and chronic respiratory failure with hypoxia; F32.3 Major depressive disorder, single episode, severe with psychotic features; J18.9 Pneumonia, unspecified organism; Z99.81 Dependence on supplemental oxygen; M34.81 Systemic sclerosis with lung involvement; F43.10 Post-traumatic stress disorder, unspecified; F11.11 Opioid abuse, in remission; G40.909 Epilepsy, unspecified, not intractable, without status epilepticus; Z91.5 Personal history of self-harm; Z20.822 Contact with and (suspected) exposure to COVID-19; Z88.0 Allergy status to penicillin; Z88.6 Allergy status to analgesic agent; Z66 Do not resuscitate; Z51.5 Encounter for palliative care
CPT/HCPCS: 0241U; 36415; 36600; 71045; 71275; 80048; 80076; 80202; 80307; 81001; 82565; 82803; 82947; 83605; 83880; 84484; 84702; 85025; 85027; 85379; 85610; 85652; 87040; 87449; 87635; 87899; 93005; 93306; 94640; 94660; 94799; 96361; 96365; 96375; 99284; 99291; C1758; J0133; J1170; J1650; J1940; J1953; J1956; J2270; J2405; J2920; J2930; J3370; Q9967

== ENCOUNTER 2021-04-18 17:13 | Inpatient (IN) | payer OTHER, SELFPAY ==
--- NOTE | 2021-04-18 16:46 | P.HPHOSP_ITS ---
History of Present Illness Date of Service: 04/18/21 Chief Complaint: hospice admission as per my discharge summary today: From admission H+P by Dr Tillman from 04/07/21: This is a 45-year-old female patient with past medical history significant for chronic respiratory failure, on 6 L of home oxygen with underlying history of interstitial lung disease; pulmonary fibrosis; history of multiple lung nodules and history of substance abuse, who left [facility] against medical advice yesterday after being admitted for pneumonia and chest pain with deep breathing.? The patient during the hospitalization was also noted to have tonic-clonic seizures and was started on antiepileptic medication.? However, the patient returned back to [facility] today due to symptoms of shortness of breath, fever of 102, and significant chest pain with deep breathing.? The patient is on palliative care at home and plan is to transition to hospice care.? In the emergency room, the patient was noted to be febrile with a temperature of 102.2.? She was hypoxic with finger oximetry of 70s on 6 L as per EMS.? The patient was placed on nonrebreather, oxygen improved to low 90s.? The patient subsequently placed on high-flow oxygen, currently oxygenating well, but the patient complaining of significant chest pain with deep breathing, asking for Dilaudid.? The patient complaining of persistent nausea, no vomiting.? Also complaining of dry cough, no sputum production. Denies any sick contacts.? Denies using any illicit drugs besides her Dilaudid. ?A chest x-ray today showed diffuse bilateral patchy airspace consolidation and low lung volumes.? The patient's recent CT chest on April 04, showed right upper lobe new ground-glass opacity concerning for pneumonia.? The patient is being admitted to [facility] due to acute on chronic hypoxic respiratory failure, hospital-acquired pneumonia, and intractable pain. The patient was admitted to the [facility] COVID-19 testing was negative. ? Pulmonology was consulted.? She was treated with steroids, and when she failed to improve pulse-dose steroids, then broad-spectrum antibiotics and antivirals.? PCT demonstrated worsening progression of her undrlying disease with bilateral ground-glass opacities.? Unfortunately, her respiratory status worsened to the point where she was maintaining SaO2 of only 88% despite [id number] BiPAP on 12/6 cm H20 with fiO2 100%.? In consultation with her healthcare proxy and family members, the patient was transitioned to inpatient [facility] hospice for relief of respiratory distress and uncontrolled pain. Review of Systems Review of Systems: Yes all other systems are reviewed and are negative Cardiovascular: Cardiovascular: Reports chest pain, Reports chest pain at rest, Reports dyspnea and Reports dyspnea on exertion Respiratory: Respiratory: Reports dyspnea and Reports dyspnea on exertion PMFSH Medical History Chronic respiratory failure with hypoxia History of interstitial lung disease Oxygen dependent Pulmonary fibrosis Respiratory failure, acute and chronic Scleroderma involving lung Seizures Social History Household Members: Spouse Housing: House Do you presently have visiting nurse or other home services: Yes (Palliative care) Alcohol intake: never Patient Tobacco Use Status: Never used Tobacco Substance Use Type: Marijuana Advance Directives: Yes Advance Directives on File: Yes Advance Directives Date on File: 01/12/21 service: No Current occupational status: unemployed and disabled Meds Allergies Allergy/AdvReac Type Severity Reaction Status Date / Time Penicillins [PCN] Allergy Severe HIVES, Verified 04/04/21 16:54 ANGIOEDEMA fentanyl [FENTANYL] Allergy Intermediate UNKNOWN Verified 04/04/21 16:54 garlic [GARLIC] Allergy Unknown ANAPHYLAXIS Verified 04/04/21 16:54 mustard [MUSTARDS] Allergy Unknown ANAPHYLAXIS Verified 04/04/21 16:54 naproxen [NAPROXEN] Allergy Unknown UNKNOWN Verified 04/04/21 16:54 paroxetine [Paxil] Allergy Unknown Unknown Verified 04/04/21 16:54 penicillin V Allergy Unknown Unknown Verified 04/04/21 16:54 aspirin [ASA] AdvReac Intermediate HIVES, LIP Verified 04/04/21 16:54 SWELLING SUN Allergy Severe BLISTERS, Uncoded 01/12/21 00:15 ABD PAIN, DUE TO PORPHYRIA Physical Exam Vital Signs and Narrative: Vital Signs: Temp ? 98.7 F? 04/18/21 15:15 Pulse? 73? 04/18/21 15:15 Resp ? 20? 04/18/21 15:15 BP ? 128/83? 04/18/21 15:15 Pulse Ox ? 88 L? 04/18/21 15:15 Gen: short of breath and in pain, chronically ill Neck: supple Lungs: coarse breath sounds bilaterally, on BiPAP 12/6 cm H2O with fiO2 100% Heart: regular rate and rhythm, no murmurs Abd: soft, non-tender, non-distended Ext: no edema Skin: warm/well-perfused Neuro: alert and oriented x3, no focal findings Psych: appropriate affect Assessment and Plan (1) History of interstitial lung disease: Status: Acute (2) Pneumonia: Status: Acute (3) Respiratory failure, acute and chronic: Status: Acute 45yo F with extensive scleroderma-related interstial lung disease with chronic hypoxic respiratory failure admitted for acute hypoxia and pneumonia, progressive hypoxia leading to complete BiPAP dependence, transitioned to [facility] hospice for relief of dyspnea and pain - admit to [facility] hospice - BiPAP 12/6 @ fiO2 100%, may remove BiPAP and place on HFNC as needed for oral intake - hydromorphine IV gtt 1 mg/hr + 0.5 mg q30 prn breakthrough - lorazepam 1 mg q4h prn anxiety - continue methylprednisolone 60 mg q24h - continue metoprolol 5 mg q6h Quality Stroke Does the patient have a stroke diagnosis?: No VTE Prior VTE?: No VTE Risk Level:: Medical - moderate - high VTE Device Contraindication: Treatment Not Indicated VTE Drug Contraindication: Treatment Not Indicated
[2021-04-18 22:37] VITALS: PULSE 125
[2021-04-18] MEDS: methylPREDNISolone Sod Succ 40 MG/ML VIAL 60 MG IVPUSH (22:37)
[2021-04-18] MEDS: Metoprolol Tartrate 5 MG/5 ML VIAL IVPUSH (22:37)
[2021-04-19] MEDS: HYDROmorphone HCl/NS 10 MG/50 ML PIGGYBACK 5 MG IV ×2 (05:15→15:24)
[2021-04-19 05:58] VITALS: PULSE 115
[2021-04-19] MEDS: Metoprolol Tartrate 5 MG/5 ML VIAL IVPUSH ×3 (05:58→19:03)
--- NOTE | 2021-04-19 08:24 | PC.NURSE ---
Patient resting quietly in bed with BiPap on. RR 20 at this time. turned and repositioned for comfort. feet are becoming a bit mottled, but rest of extremities warm. [employer] TE[employer]ER remains at 1mg Dilaudid per hour. Will continue to monitor freqiently for comfort/assessment
--- NOTE | 2021-04-19 13:39 | HO.PM.IMPN ---
Subjective Subjective Date of Service: 04/19/21 Interval History: More comfortable. Went off BiPAP last night but then requested to have it replaced. Using hydromorphine via LIMNOLOGY TEACHER pump. Review of Systems Review of Systems: Yes all other systems are reviewed and are negative Physical Exam Vital Signs: Vital Signs: Last Vital Signs Pulse 115 H 04/19/21 05:58 Gen: no respiratory distress Skin: mottled extremities Objective Data Current Medications Generic Name Dose Route Start Last Admin Trade Name Freq PRN Reason Stop Dose Admin Bisacodyl 10 mg 04/18/21 18:30 Bisacodyl 5 Mg Tablet.Dr PO DAILY PRN Constipation Hydromorphone HCl 10 mg in 50 mls @ 0 mls/hr 04/18/21 19:15 04/19/21 05:15 Dilaudid IV 1 mg/hr .Q0M GOLDY 5 mls/hr Administration Protocol Per Protocol Lorazepam 1 mg 04/18/21 16:50 Lorazepam 2 Mg/Ml Vial IVPUSH Q4H PRN anxiety/agitation Methylprednisolone Sodium Succinate 60 mg 04/18/21 21:00 04/18/21 22:37 Methylprednisolone Sod Succ 40 Mg/Ml Vial IVPUSH 60 mg Q24H GOLDY Administration Metoprolol Tartrate 5 mg 04/18/21 17:00 04/19/21 05:58 Metoprolol Tartrate 5 Mg/5 Ml Vial IVPUSH 5 mg Q6H GOLDY Administration Ondansetron HCl 4 mg 04/18/21 16:50 Ondansetron Hcl 4 Mg/2 Ml Vial IVPUSH Q8H PRN Nausea and Vomiting Assessment and Plan (1) Major depressive disorder with psychotic features: Status: Acute (2) History of interstitial lung disease: Status: Acute (3) Scleroderma involving lung: Status: Acute (4) Respiratory failure, acute and chronic: Status: Acute Assessment and Plan: [facility] hospice d#2 45yo F with extensive scleroderma-related interstial lung disease with chronic hypoxic respiratory failure admitted for acute hypoxia and pneumonia, progressive hypoxia leading to complete BiPAP dependence, transitioned to [facility] hospice for relief of dyspnea and pain - BiPAP 12/6 @ fiO2 100%, may remove BiPAP and place on HFNC as needed for oral intake - hydromorphine IV gtt 1 mg/hr + 0.5 mg q30 prn breakthrough - lorazepam 1 mg q4h prn anxiety - continue methylprednisolone 60 mg IV q24h - continue metoprolol 5 mg IV q6h (5) Pneumonia: Status: Acute (6) Seizure disorder: Status: Acute (7) Intractable pain: Status: Acute Assessment and Plan: 45-year-old female with past medical history of pulmonary fibrosis/interstitial lung disease who is currently on palliative care and possibly going to hospice although she has not made a decision yet presents with fever, shortness of breath, cough, and intractable chest pain. # acute on chronic respiratory failure due to hosp. acquired pneumonia with underlying pulmonary fibrosis/ interstitial lung disease with hx of scleroderma. ?? Persistent shortness of breath, with tachypnea and tachycardia, oxygenation dropped overnight now on 100% non-rebreather and high-flow oxygen ?? repeat CT chest 04/16 showed progression of underlying disease with bilateral ground-glass opacities ?? On IV Levaquin and IV vancomycin day 2, IV steroid 40 mg daily, status post pulse dose IV steroid, on updraft treatment, cough medication, iv Pepcid for GI prophylaxis ?? Blood cultures x2 are negative, COVID-19 negative ?? Patient seen by psych and they deemed her incompetent, therefore will invoke healthcare proxy Taran Schwartz [phone] ?? Had family discussion on 04/[address] Ayala from pulmonology, , sister, [id number]? and discuss goal of care, is the healthcare proxy and will be making ?? decisions, in consultation with other family members , they have been made aware of comfort care versus hospice, they have also been informed about patient's guarded condition. ?? They all agreed upon continued DNR and DNI. Due to increased requirement of oxygen and worsening CT chest will add IV Bactrim to cover PCP add IV acyclovir, give 1 dose of IV Lasix as per Pulmonary recommendation and DC IV Levaquin Spoke with again today informed him about guarded condition #. Sepsis due to pneumonia.? ? ? Resolving sepsis, leukocytosis secondary to steroid, lactic acid normalized,, continue IV antibiotic and supportive care as above #. Intractable pain with deep breathing.? continue IV Dilaudid 1.5 mg Q 4 hour due to persistent pain, patient keeps demanding for higher dose of narcotic history of substance abuse in the past, will continue current dosage ? ? Will add Dilaudid 0.5 mg at a.m. as per patient's request. ? ? #. History of seizures.? Continue Keppra 500 mg b.i.d. take seizure precautions,?patient is refusing by mouth medications, therefore on IV Keppra ? # PTSD - continue home medications DVT prophylaxis:? On Lovenox Quality Stroke Does the patient have a stroke diagnosis?: No VTE Prior VTE?: No VTE Risk Level:: Medical - moderate - high VTE Device Contraindication: Treatment Not Indicated VTE Drug Contraindication: Treatment Not Indicated
[2021-04-19 13:41] VITALS: PULSE 127
[2021-04-19 14:03] VITALS: PULSE 109
[2021-04-19 15:24] VITALS: RESP 30
[2021-04-19] MEDS: LORazepam 2 MG/ML VIAL 1 MG IVPUSH ×2 (15:53→19:54)
[2021-04-19 19:03] VITALS: PULSE 128
[2021-04-19] MEDS: ondansetron HCL 4 MG/2 ML VIAL IVPUSH (19:20)
[2021-04-19 19:34] VITALS: PULSE 108
--- NOTE | 2021-04-19 20:53 | PM.EVENT ---
Event Note Date of Service: 04/19/21 Event Note: Pt today at 8: 44 pm
--- NOTE | 2021-04-19 21:27 | PC.NURSE ---
04/19/21 20:15 pt had no apical pulse and no respirations. HR: 0, RR: 0.
--- NOTE | 2021-04-19 21:31 | PC.NURSE ---
8:24/ 20:15 pt has no apical pulse and no respirations. HR: 0, RR: 0.
--- NOTE | 2021-04-20 18:00 | PM.DS ---
DS: Providers Provider Date of Service: 04/20/21 Date of admission: 04/18/21 17:13 Primary care physician: Wagner Devries MD DS: Diagnosis Discharge Diagnosis (1) History of interstitial lung disease: Status: Acute (2) Scleroderma involving lung: Status: Acute (3) Respiratory failure, acute and chronic: Status: Acute (4) Intractable pain: Status: Acute DS: Summary Hospital Course Hospital Course: From admission H+P by Dr Tillman from 04/07/21: This is a 45-year-old female patient with past medical history significant for chronic respiratory failure, on 6 L of home oxygen with underlying history of interstitial lung disease; pulmonary fibrosis; history of multiple lung nodules and history of substance abuse, who left [facility] against medical advice yesterday after being admitted for pneumonia and chest pain with deep breathing.? The patient during the hospitalization was also noted to have tonic-clonic seizures and was started on antiepileptic medication.? However, the patient returned back to [facility] today due to symptoms of shortness of breath, fever of 102, and significant chest pain with deep breathing.? The patient is on palliative care at home and plan is to transition to hospice care.? In the emergency room, the patient was noted to be febrile with a temperature of 102.2.? She was hypoxic with finger oximetry of 70s on 6 L as per EMS.? The patient was placed on nonrebreather, oxygen improved to low 90s.? The patient subsequently placed on high-flow oxygen, currently oxygenating well, but the patient complaining of significant chest pain with deep breathing, asking for Dilaudid.? The patient complaining of persistent nausea, no vomiting.? Also complaining of dry cough, no sputum production. Denies any sick contacts.? Denies using any illicit drugs besides her Dilaudid. ?A chest x-ray today showed diffuse bilateral patchy airspace consolidation and low lung volumes.? The patient's recent CT chest on April 04, showed right upper lobe new ground-glass opacity concerning for pneumonia.? The patient is being admitted to [facility] due to acute on chronic hypoxic respiratory failure, hospital-acquired pneumonia, and intractable pain. The patient was admitted to the [facility] COVID-19 testing was negative. ? Pulmonology was consulted.? She was treated with steroids, and when she failed to improve pulse-dose steroids, then broad-spectrum antibiotics and antivirals.? PCT demonstrated worsening progression of her undrlying disease with bilateral ground-glass opacities.? Unfortunately, her respiratory status worsened to the point where she was maintaining SaO2 of only 88% despite [id number] BiPAP on 12/6 cm H20 with fiO2 100%.? In consultation with her healthcare proxy and family members, the patient was transitioned to inpatient [facility] hospice for relief of respiratory distress and uncontrolled pain. She was transitioned to [facility] hospice on 04/18/21, with hydromorphone LONG TERM CARE ADMINISTRATOR, lorazepam, and BiPAP [with periods of HFNC to allow oral intake and rest from the mask]. She on 04/19/21 at 20:44. Time Spent with Patient Time attestation: Total time spent providing and/or coordinating discharge services: Discharge coordination time: Less than 30 minutes Quality: Stroke Does the patient have a stroke diagnosis?: No Physical Exam Vital Signs: Vital Signs: Last Vital Signs Pulse 108 H 04/19/21 19:34 Resp 30 H 04/19/21 15:24 Discharge Plan Discharge Date/Time: 04/19/21 20:15 Patient Disposition: Referrals: Wagner Devries MD [Primary Care Provider] - 1 Week Discharge Date/Time: 04/20/21 00:44
== END 2021-04-20 00:44 | disposition expired | DRG 951 ==
LOC: HO.IMC 17:33
PROVIDERS: Admitting Provider Family Medicine; PCP Internal Medicine; Visit Provider Family Medicine
DX: Z51.5 Encounter for palliative care (principal); A41.9 Sepsis, unspecified organism; J18.9 Pneumonia, unspecified organism; J96.21 Acute and chronic respiratory failure with hypoxia; M34.81 Systemic sclerosis with lung involvement; F43.10 Post-traumatic stress disorder, unspecified; G40.909 Epilepsy, unspecified, not intractable, without status epilepticus; Z99.81 Dependence on supplemental oxygen; Z88.0 Allergy status to penicillin; Z88.5 Allergy status to narcotic agent; Z88.6 Allergy status to analgesic agent; Z66 Do not resuscitate
CPT/HCPCS: J1170; J2060; J2405; J2920